=== PATIENT | female | born 1960 | race Caucasian/White ===

== ENCOUNTER 2017-02-05 15:34 | Inpatient (IN) | payer OTHER ==
[~2017-02-05] VITALS: Ht 160 cm; Wt 132.0 kg
[2017-02-05 15:36] VITALS: BP 146/76; PULSE 92; RESP 18; TEMP 98.2; O2SAT 95
[2017-02-05] MEDS ORDERED: SODIUM CHLORIDE 0.9% FLUSH 5 ML FLUSH IVF PRN (16:15)
[2017-02-05 17:02] VITALS: BP 111/67; PULSE 101; RESP 20; TEMP 97.8; O2SAT 96
--- NOTE | 2017-02-05 18:12 | HHI.HP ---
HPI Chief Complaint heavy vaginal bleeding with clots intermittent back pain Date Seen: Feb 05, 2017 Time Seen: 17:56 Travel History International Travel<30 Days: No Contact w/Intl Traveler<30Days: No Known Affected Area: No History of Present Illness HPI 56 yo swf G0 with intact pelvis in menopause since 48 yoa referred to me by her physician sister in [place] and seen briefly in my office today. Stephanie lives in [place] and after absence of bleeding for over four years started bleeding lightly in September, gradually and steadily increasing to heavy with clots. It became particularly heavy and and accompanied by back pain this weekend. This am her back pain was 8/10. She gets diaphoretic and dizzy. 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 She has not seen any physician in decades except for an external reduction of an arm fracture four years ago. She has no history of pap smears or other screening procedures. She is on no medications other than high doses of ibuprofen recently (1200mg today) Her last intercourse was over 10 years ago. She has never been . She does not perceive any abdominal masses, She has no swelling in her extremites. She has not felt weak or faint. In my office a transvaginal ultrasound was attempted and encountered a large amount of clot and tissue in the vault. Transabdominal sonogram showed an irregular mass that is either the uterus or abutting the uterus. Ovaries could not be discerned There was no obvious ascites. Tissue was removed from the vault to be sent to pathology. She feels that she is not voiding adequately--more that she is not making urine as opposed to being in retention or having a slow stream. Dr. Leyda Chandler was called directly and asked to facilitate admission through the ED, during this busy bike week. History Past Medical History Medical History: Denies Significant Hx Obstetric History Obstetric History nulligravid Family History Narrative Family History family history is significant for breast cancer, colon disease and hypertension. Social History Alcohol Use: No Tobacco Use: No Substance Abuse: No Allergies-Medications (Allergen,Severity, Reaction): Coded Allergies: Penicillin (Verified Allergy, Severe, 02/05/17) Review of Systems General / Constitutional: Weight Loss HENT: Headaches, Lightheadedness Cardiovascular: Tachycardia Genitourinary: Decreased Urinary Output, Hesitancy, Pelvic Pain, Menorrhagia, Vaginal Bleeding Physical Exam Vital Signs Date Time Temp Pulse Resp B/P Pulse Ox O2 Delivery O2 Flow Rate FiO2 02/05/17 17:02 97.8 101 20 111/67 96 Room Air 02/05/17 15:36 98.2 92 18 146/76 95 Narrative GENERAL: Well-nourished, well-developed patient. SKIN: Warm and dry. HEAD: Normocephalic and atraumatic. EYES: No scleral icterus. No injection or drainage. ENT: No nasal drainage noted. Mucous membranes pink. Airway patent. NECK: Supple, trachea midline. No JVD. CARDIOVASCULAR: Regular rate and rhythm without murmurs, gallops, or rubs. RESPIRATORY: Breath sounds equal bilaterally. No accessory muscle use. BREASTS: Bilateral exam showed no masses , no retractions, no nipple discharge. ABDOMEN/GI: large pannus perineum normal vault filled with tissue and blood with clot and active bleeding EXTREMITIES: No cyanosis or edema. BACK: Nontender without obvious deformity. No CVA tenderness. NEUROLOGICAL: Awake and alert. Motor and sensory grossly within normal limits. Five out of 5 muscle strength in all muscle groups. Normal speech. Data Data Orders Basic Metabolic Panel (Bmp) (02/05/17 16:01) Complete Blood Count With Diff (02/05/17 16:01) Prothrombin Time / Inr (Pt) (02/05/17 16:01) Act Partial Throm Time (Ptt) (02/05/17 16:01) Type And Screen (02/05/17 16:01) Ecg Monitoring (02/05/17 16:01) Iv Access Insert/Monitor (02/05/17 16:01) Oximetry (02/05/17 16:01) Sodium Chloride 0.9% Flush (Ns Flush) (02/05/17 16:15) Vascular Access Team Consult PRN (02/05/17 17:40) Vascular Poc Ultrasound (02/05/17 ) Admit Order (Ed Use Only) (02/05/17 17:48) Assessment/Plan Assessment and Plan Severe chronic and acute bleeding in obese woman with no medical care for many years. Recent onset of back pain. My greatest concern is for an advanced endometrial neoplasm, although the primary could be cervical. Needs hydration and labs to assess chronic and acute blood loss Need to get CT scan to look for primary organ and metastatic disease Need to identify any comorbidities other than increase BMI Nona Guerrier MD Feb 05, 2017 18:12
[2017-02-05 18:35] LABS: AUTOMATED NEUTROPHIL # 10.2 TH/MM3 (1.8-7.7); BASOPHIL # 0.1 TH/MM3 (0-0.2); BASOPHIL % 0.7 % (0.0-2.0); EOSINOPHIL % 0.3 % (0.0-4.0); HEMO FLAGS DIFF FINAL; LYMPH % 16.6 % (9.0-44.0); LYMPHOCYTE # 2.2 TH/MM3 (1.0-4.8); MEAN CORPUSCULAR HEMOGLOBIN 29.3 PG (27.0-34.0); MEAN CORPUSCULAR HGB CONC 33.3 % (32.0-36.0); MONO % 5.3 % (0.0-8.0); NEUT % 77.1 % (16.0-70.0); PLATELET COUNT 258 TH/MM3 (150-450); RED BLOOD COUNT 3.97 MIL/MM3 (4.00-5.30); RED CELL DISTRIBUTION WIDTH 13.9 % (11.6-17.2); WHITE BLOOD COUNT 13.2 TH/MM3 (4.0-11.0)
--- NOTE | 2017-02-05 19:22 | PD ---
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 Patient has not seen a doctor in 30-40 years. She is postmenopausal times approximate 2-3 years and began to have vaginal bleeding in October. Over the course the last 2-3 months this has increased and she is now having heavy bleeding and clot. She was seen in clinic by Dr. Guerrier who noted patient to be bleeding quite heavily and tachycardic in the 130s. Patient having some low abdominal pain and had a pelvic ultrasound showing uterus essentially taken over by endometrium with tumor falling out of her vaginal vault. Biopsy was taken. Patient transferred here for further management and resuscitation with blood products if needed. She feels okay now and believes she was just nervous which is what caused her to be tachycardic. PFSH Past Medical History Medical History: Denies Significant Hx Diabetes: No (fam hx) Tetanus Vaccination: > 5 Years Influenza Vaccination: No ?: Not Family History Family Breast Cancer: Yes (mother,cousin) Family Hypercholesterolemia: Yes (fam hx htn) Social History Alcohol Use: No Tobacco Use: No Substance Use: No Allergies-Medications (Allergen,Severity, Reaction): Coded Allergies: Penicillin (Verified Allergy, Severe, 02/05/17) Reported Meds & Prescriptions Reported Meds & Active Scripts Active No Active Prescriptions or Reported Medications Review of Systems Except as stated in HPI: all other systems reviewed are Neg Physical Exam Narrative GENERAL: Well-appearing female in no acute distress SKIN: Warm and dry. HEAD: Normocephalic. EYES: No scleral icterus. No injection or drainage. ENT: Mucous membranes pink and moist. NECK: Supple CARDIOVASCULAR: Regular rate and rhythm. No murmur appreciated. RESPIRATORY: No accessory muscle use. Clear to auscultation. Breath sounds equal bilaterally. GASTROINTESTINAL: Abdomen soft, non-tender, nondistended. Obese MUSCULOSKELETAL: Normal gait NEUROLOGICAL: Awake and alert.Normal speech. PSYCHIATRIC: Appropriate mood and affect; insight and judgment normal. Data Data Last Documented VS Vital Signs Date Time Temp Pulse Resp B/P Pulse Ox O2 Delivery O2 Flow Rate FiO2 02/05/17 17:02 97.8 101 20 111/67 96 Room Air Orders Complete Blood Count With Diff (02/05/17 16:01) Prothrombin Time / Inr (Pt) (02/05/17 16:01) Act Partial Throm Time (Ptt) (02/05/17 16:01) Type And Screen (02/05/17 16:01) Ecg Monitoring (02/05/17 16:01) Iv Access Insert/Monitor (02/05/17 16:01) Oximetry (02/05/17 16:01) Sodium Chloride 0.9% Flush (Ns Flush) (02/05/17 16:15) Vascular Access Team Consult PRN (02/05/17 17:40) Vascular Poc Ultrasound (02/05/17 ) Admit Order (Ed Use Only) (02/05/17 17:48) MDM Medical Decision Making Medical Screen Exam Complete: Yes Emergency Medical Condition: Yes Medical Record Reviewed: Yes Differential Diagnosis 56-year-old female here with postmenopausal vaginal bleeding. Differential includes uterine cancer, cervical cancer, other PHOTOGRAPHER'S ASSISTANT cancer, hemorrhage, symptomatic anemia. Narrative Course Patient placed on monitor, IV established and blood obtained. CBC, BMP, coags, type and screen were obtained and notable for hemoglobin of 11.7. Heart rate remained stable throughout ED stay. Dr. Guerrier consulted and will admit patient for further management and PHOTOGRAPHER'S ASSISTANT oncology workup. CT chest abdomen and pelvis were ordered for metastatic workup. Diagnosis Primary Impression: Post-menopausal bleeding Additional Impression: Vaginal bleeding Admitting Information Admitting Physician Requests: Admit Scripts No Active Prescriptions or Reported Meds eLyda Chandler MD Feb 05, 2017 19:21
[2017-02-05 19:34] LABS: ANION GAP 9 MEQ/L (5-15); AST (GOT) 10 U/L (15-37); BICARBONATE 25.8 MEQ/L (21.0-32.0); BLOOD UREA NITROGEN 12 MG/DL (7-18); CHLORIDE 101 MEQ/L (98-107); GLOMERULAR FILTRATION RATE 61 ML/MIN (>89); POTASSIUM 3.7 MEQ/L (3.5-5.1); SODIUM (NA) 136 MEQ/L (136-145)
[2017-02-05 19:38] LABS: ALKALINE PHOSPHATASE 94 U/L (45-117); ALT (GPT) 16 U/L (10-53); FERRITIN 33 NG/ML (8-252); TOTAL BILIRUBIN ADULT 0.4 MG/DL (0.2-1.0)
[2017-02-05 19:45] LABS: PROTHROMBIN TIME - PATIENT 10.8 SEC (9.8-11.6)
[2017-02-05 19:48] LABS: APTT (PATIENT) 19.4 SEC (24.3-30.1)
[2017-02-05 19:59] LABS: RETIC % 2.8 % (0.4-3.0); REVIEW FLAG FINAL
[2017-02-05] MEDS ORDERED: IOHEXOL 350 MG/ML 10 ML VIAL (for RAD DIAG) IV ONE (20:05)
--- NOTE | 2017-02-05 20:27 | RADRPT ---
EXAM DATE/TIME: 02/05/2017 19:51 [facility] COMPARISON: No previous studies available for comparison. INDICATIONS : Possible metastatic disease to lungs. IV CONTRAST: 100 cc Omnipaque 350 (iohexol) IV ; Cumulative dose for multiple exams. RADIATION DOSE: 14.24 CTDIvol (mGy) ; Combined studies - Thorax/Abdomen/Pelvis MEDICAL HISTORY : Diabetes mellitus type 2. SURGICAL HISTORY : None. ENCOUNTER: Initial ACUITY: 1 day PAIN SCALE: 0/10 LOCATION: cranial TECHNIQUE: Volumetric scanning of the chest was performed. Using automated exposure control and adjustment of t he mA and/or kV according to patient size, radiation dose was kept as low as reasonably achievable to obtain optimal diagnostic quality images. FINDINGS: LUNGS: There is no consolidation or pneumothorax. No concerning pulmonary nodule is visualized. PLEURA: There is no pleural thickening or pleural effusion. MEDIASTINUM: The heart and great vessels demonstrate no acute abnormality. There is no mediastinal or hilar lymph adenopathy. AXILLAE: Within normal limits. No lymphadenopathy. SKELETAL: Within normal limits for patient age. MISCELLANEOUS: The visualized upper abdominal organs demonstrate no acute abnormality. CONCLUSION: 1. No acute intrathoracic disease. 2. No evidence of metastatic disease. Jc Vega MD on February 05, 2017 at 20:23 Board Certified Radiologist. This report was verified electronically.
--- NOTE | 2017-02-05 20:29 | RADRPT ---
EXAM DATE/TIME: 02/05/2017 19:51 [facility] COMPARISON: No previous studies available for comparison. INDICATIONS : Abnormal vaginal bleeding and pelvic pain. IV CONTRAST: 100 cc Omnipaque 350 (iohexol) IV ; Cumulative dose for multiple exams. ORAL CONTRAST: Prescribed oral contrast ingested. RADIATION DOSE: 14.49 CTDIvol (mGy) ; Combined studies - Thorax/Abdomen/Pelvis MEDICAL HISTORY : Diabetes mellitus type 2. SURGICAL HISTORY : None. ENCOUNTER: Initial ACUITY: 1 day PAIN SCALE: 5/10 LOCATION: Bilateral lower quadrant TECHNIQUE: Volumetric scanning of the abdomen and pelvis was performed. Using automated exposure control and ad justment of the mA and/or kV according to patient size, radiation dose was kept as low as reasonably achievable to obtain optimal diagnostic quality images. FINDINGS: LOWER LUNGS: The visualized lower lungs are clear. LIVER: Homogeneous density without lesion. There is no dilation of the biliary tree. No calcified gallston es. SPLEEN: Normal size without lesion. PANCREAS: Within normal limits. KIDNEYS: Normal in size and shape. There is no mass, stone or hydronephrosis. ADRENAL GLANDS: Within normal limits. VASCULAR: There is no aortic aneurysm. BOWEL/MESENTERY: The stomach, small bowel, and colon demonstrate no acute abnormality. There is no free intraperitone al air or fluid. A few scattered diverticula of the colon. No inflammatory changes. ABDOMINAL WALL: Within normal limits. RETROPERITONEUM: There is no lymphadenopathy. BLADDER: No wall thickening or mass. REPRODUCTIVE: Uterus appears to be diffusely enlarged measuring 8.2 x 5.5 cm. No free fluid in the pelvis. INGUINAL: There is no lymphadenopathy or hernia. MUSCULOSKELETAL: Within normal limits for patient age. CONCLUSION: 1. Diffusely enlarged uterus 2. Scattered diverticulosis without inflammatory changes Jc Vega MD on February 05, 2017 at 20:25 Board Certified Radiologist. This report was verified electronically.
[2017-02-05 20:58] VITALS: BP 103/68; PULSE 104; RESP 14; O2SAT 96
[2017-02-05 22:18] VITALS: BP 132/77; PULSE 120; RESP 16; TEMP 98.1; O2SAT 96
[2017-02-05] MEDS ORDERED: DEXTROSE 50% IN WATER 50 ML VIAL(D50) IV PUSH PRN (22:30)
[2017-02-05] MEDS ORDERED: GLUCAGON 1 MG/ML VIAL OTHER PRN (22:30)
[2017-02-05] MEDS: LOW DOSE INSULIN NOVOLOG SUPPLEMENTAL SCALE SQ SCH (22:41)
[2017-02-05 22:44] LABS: HEMOGLOBIN A1a 1.7 %; HEMOGLOBIN Ao 74.1 %; HEMOGLOBIN F 1.9 %; HEMOGLOBIN LA1C 3.6 %; HEMOGLOBIN P3 5.3 %
[2017-02-06 02:35] LABS: BLOOD, URINE LARGE (NEG); COMMENT (UR) CULTURE INDICATED; CULTURE IF INDICATED CULTURE INDICATED; GLUCOSE,URINE TRACE mg/dL (NEG); KETONE, URINE TRACE mg/dL (NEG); MUCUS URINE FEW /lpf (OCC); NITRITE,URINE NEG (NEG); PH, URINE 5.5 (5.0-8.5); URINE COLOR YELLOW (YELLW/STRAW)
[2017-02-06 04:08] VITALS: BP 93/50; PULSE 92; RESP 16; TEMP 98.5; O2SAT 97
[2017-02-06] MEDS: LOW DOSE INSULIN NOVOLOG SUPPLEMENTAL SCALE SQ SCH ×4 (05:40→22:05)
[2017-02-06 07:50] VITALS: BP 100/63; PULSE 85; RESP 20; TEMP 98.7; O2SAT 98
--- NOTE | 2017-02-06 07:52 | MB ---
cc: DAVID LONG KELLY L. MD DATE OF CONSULTATION 02/06/2017 PHYSICIAN REQUESTING CONSULT Tresa Long MD REASON FOR CONSULTATION Uterine and cervical mass postmenopausal bleeding. HISTORY This a 56-year-old female who by her own admission has been decades since she has last seen a physician. She has never been in the hospital. She has not had any prior surgery. She reports bleeding starting as spotting in September of last year intermittently until recently where it worsened. This was also associated with lower back pain and it was actually back pain where she was sent to the emergency room for further evaluated after she was seen and evaluated in the office of Dr. Tresa Long. Dr. Long describes seeing polypoid tissue that appears to be a probable tumor either extending through the cervix or possibly replacing the cervix upper vagina. Biopsy was obtained. Pathology results are pending. She was admitted to the hospital. CT scan imaging of the chest, abdomen and pelvis shows the chest to be clear. The uterus is quite prominent with a width of 10 cm and this width continues all the way down to the lower uterine segment and cervix to some extent and the uterus extends to within a few centimeters of the umbilicus. There is no overt adenopathy, ascites, intraperitoneal or retroperitoneal nodularity. She is seen now in consultation for further evaluation and recommendations regarding these findings. PAST MEDICAL HISTORY Her past medical history is not well known. As stated above, she has a sedentary lifestyle and is above her ideal body weight and it has become clear since admission that she has poorly controlled diabetes with a hemoglobin A1c of greater than 12 and a blood glucose on admission greater than 300. PAST SURGICAL HISTORY Unremarkable SOCIAL HISTORY She denies any tobacco or alcohol use. FAMILY HISTORY Known for breast cancer, elevated cholesterol. No other information provided. MEDICATIONS She takes no prescription medications. ALLERGIES She reports to [facility]. OBJECTIVE DATA Labs on admission H&H 11.7 and 35, white count 13.2, platelet count 258. Electrolytes essentially normal with preserved renal function, BUN and creatinine 12 and 0.94, glucose elevated 326. Hemoglobin A1c 12.3, protein uncorrected calcium slightly low at 8.4. No elevated liver function tests, CA-125 is normal at 21.9. PHYSICAL EXAMINATION Afebrile, temp 98.5, pulse 92-120, respirations 14-20, blood pressure 93-146/50 to 77, O2 saturations greater than or equal to 96% while awake. GENERAL: She is alert, oriented x3 in no acute distress, pleasant and now comfortable, states that her back pain currently has subsided. NECK: No overt adenopathy. No overt carotid bruits. LUNGS: Clear to auscultation. CARDIOVASCULAR: Distant heart sounds regular rate and rhythm. BACK: Without CVA tenderness or focal spinal point tenderness. ABDOMEN: Protuberant and nontender. There is no overt hernia. No palpable mass or visible surgical scars. COLLISION CENTER MANAGER: Exam is deferred until a more optimal setting for exam. EXTREMITIES: Nontender. No palpable cords. NEUROVASCULAR: Intact. DISCUSSION Time is spent in discussion with her reviewing the findings in her case to date, explaining the reason for COLLISION CENTER MANAGER oncology consultation. I explained that there are benign things that can occur and cause the uterus and cervix to appear abnormal and result in bleeding, pain and other symptoms and there are certainly malignancies that can present with these findings. She understands that a biopsy has been obtained, the results are pending and I have reviewed the CT scan results again with her as well. I shared are reasonably high concern for probable malignancy given the constellation of findings and how it is approached depends on the biopsy results and the extent of disease in the pelvis. CT scan imaging certainly shows a markedly distended lower uterine segment and cervix and it needs to be further clarified whether or not there is infiltration of tumor beyond the cervix into the parametria and whether this tumor is arising from the cervix or the uterus and certainly in our consideration is endometrial cancer with presentation suggestive of a carcinosarcoma or other sarcoma variant, but primary tumor in the cervix or otherwise must all be considered. Nevertheless, additional information is needed. She is aware of her poorly controlled glucose and it would be helpful to have that addressed by the Medicine Service not only while in the hospital, but to have outpatient regular ongoing followup. With respect to treatment, the range can be from efforts to control bleeding such as selective artery embolization. At times, surgery is thought to be the best way to approach a problem like this with hysterectomy and at times depending on the pathology and extent of disease, that radiation and possibly chemotherapy may be considered. As explained, certainly this is a wide spectrum of potential treatment approaches and additional information is needed prior to making definitive recommendations. We will follow along in her care. Discussion ensued, questions were answered. She was grateful for the time spent and seems to understand the pertinent aspects of our discussion. ASSESSMENT 1. Enlarged uterus, lower uterine segment and cervix, postmenopausal bleeding and back pain. 2. Biopsy obtained, results pending. 3. Extensive discussion. PLAN In our discussion, she is in agreement. If possible, we may do a more optimal setting for pelvic exam and this combined with biopsy results may help guide our treatment recommendations. We will follow along with Dr. Long and work in conjunction with her. Thank you for the consultation. MD BOUBACAR Vences/OUMAR /7:03 AM /7:19 AM
[2017-02-06 09:44] LABS: AUTOMATED NEUTROPHIL # 7.5 TH/MM3 (1.8-7.7); BASOPHIL # 0.1 TH/MM3 (0-0.2); BASOPHIL % 0.6 % (0.0-2.0); EOSINOPHIL # 0.2 TH/MM3 (0-0.4); EOSINOPHIL % 2.2 % (0.0-4.0); HEMATOCRIT 34.9 % (35.0-46.0); HEMO FLAGS DIFF FINAL; LYMPH % 23.5 % (9.0-44.0); LYMPHOCYTE # 2.6 TH/MM3 (1.0-4.8); MEAN CELL VOLUME 85.1 FL (80.0-100.0); MEAN CORPUSCULAR HEMOGLOBIN 29.1 PG (27.0-34.0); MEAN CORPUSCULAR HGB CONC 34.2 % (32.0-36.0); MONO % 6.5 % (0.0-8.0); NEUT % 67.2 % (16.0-70.0); PLATELET COUNT 284 TH/MM3 (150-450); RED CELL DISTRIBUTION WIDTH 13.5 % (11.6-17.2); WHITE BLOOD COUNT 11.1 TH/MM3 (4.0-11.0)
[2017-02-06 11:50] VITALS: BP 98/51; PULSE 84; RESP 20; TEMP 98; O2SAT 96
--- NOTE | 2017-02-06 12:59 | PD.CONS ---
HPI Chief Complaint post menopausal bleeding enlarged uterus with tissue extruding from/replacing cervix Date Seen: Feb 06, 2017 Time Seen: 08:00 Travel History International Travel<30 Days: No Contact w/Intl Traveler<30Days: No Known Affected Area: No History of Present Illness HPI 56 yo swf G0 with intact pelvis and increasing bleeding over 3 months. Fleshy mass of tissue in vault either extruding from or replacing cervix. Sonogram in my office not helpful. CT done yesterday suggests absence of metastatic disease but uterus enlarged. Bleeding has diminished but still has occasional clots and tissue this am. She is aware that her glucose was over 350 and that she needs a work up for diabetes. She has no more back pain and wonders if the sudden expulsion of tissue and clots yesterday ("like my uterus blew out") relieved her back pain--that sent her to my office in the first place. Ca [address] Vaughn has already seen Stephanie this am. Waiting for hospitalist consultation. Allergies-Medications (Allergen,Severity, Reaction): Coded Allergies: Penicillin (Verified Allergy, Severe, 02/05/17) Home Meds No Active Prescriptions or Reported Meds Physical Exam Vital Signs Date Time Temp Pulse Resp B/P Pulse Ox O2 Delivery O2 Flow Rate FiO2 02/06/17 04:08 98.5 92 16 93/50 97 02/05/17 22:18 98.1 120 16 132/77 96 02/05/17 20:58 104 14 103/68 96 Room Air 02/05/17 17:02 97.8 101 20 111/67 96 Room Air 02/05/17 15:36 98.2 92 18 146/76 95 Narrative GENERAL: Well-nourished overweight well-developed patient. SKIN: Warm and dry. HEAD: Normocephalic and atraumatic. EYES: No scleral icterus. No injection or drainage. ENT: No nasal drainage noted. Mucous membranes pink. Airway patent. NECK: Supple, trachea midline. No JVD. CARDIOVASCULAR: Regular rate and rhythm without murmurs, gallops, or rubs. RESPIRATORY: Breath sounds equal bilaterally. No accessory muscle use. BREASTS: Bilateral exam showed no masses , no retractions, no nipple discharge. ABDOMEN/GI: Abdomen soft, non-tender, bowel sounds present, no rebound, no guarding Gravid to [-] weeks size Fundal Height: [-] GENITOURINARY: pads show moderate blood and serous fluid. no pelvic exam performed in the room. EXTREMITIES: No cyanosis or edema. BACK: Nontender without obvious deformity. No CVA tenderness. NEUROLOGICAL: Awake and alert. Motor and sensory grossly within normal limits. Five out of 5 muscle strength in all muscle groups. Normal speech. Data Data Orders Complete Blood Count With Diff (02/05/17 16:01) Prothrombin Time / Inr (Pt) (02/05/17 16:01) Act Partial Throm Time (Ptt) (02/05/17 16:01) Type And Screen (02/05/17 16:) Ecg Monitoring (02/05/17 16:01) Iv Access Insert/Monitor (02/05/17 16:) Oximetry (02/05/17 16:01) Sodium Chloride 0.9% Flush (Ns Flush) (02/05/17 16:15) Vascular Access Team Consult PRN (02/05/17 17:40) Vascular Poc Ultrasound (02/05/17 ) Admit Order (Ed Use Only) (02/05/17 17:48) Consult Process Designer Oncology (02/05/17 ) Cancer Antigen 125 (02/05/17 18:12) Hemoglobin (Hgb) A1c (02/05/17 18:12) Ferritin (02/05/17 18:12) Retic Count (02/05/17 18:12) Comprehensive Metabolic Panel (02/05/17 18:12) Cath For Specimen (02/05/17 18:12) ^ Other Nursing Orders (02/05/17 18:12) Ct Abd/Pel W Iv Contrast(Rout) (02/05/17 18:21) Ct Thorax/ Chest W Iv Contrast (02/05/17 ) (Hub Use Only)Inp Phy Cons/Ref (02/05/17 ) Iohexol 350 Inj (Omnipaque 350 Inj) (02/05/17 20:05) Oxycodone-Acetamin 5-325 Mg (Percocet (02/05/17 22:30) Oxycodone-Acetamin 5-325 Mg (Percocet (02/05/17 22:30) Dextrose 50% In [place] (Vial) Inj (D50w (Vi (02/05/17 22:30) Glucagon Inj (Glucagon Inj) (02/05/17 22:30) Insulin Aspart Supplemtl Scale (Novolog (02/05/17 22:22) Complete Blood Count With Diff (02/06/17 06:00) Diet 1999 Ada Cons Carb (02/05/17 Dinner) Specimen To Be Collected PRN (02/05/17 22:26) Urinalysis - C+S If Indicated (02/05/17 22:26) Bedside Glucose KADE.AC&HS (02/05/17 22:37) ^ Blood Glucose Goal (Criteria (02/05/17 22:37) ^ Hypoglycemia 51 - 69 Mg/Dl (02/05/17 22:37) ^ Hypoglycemia 50 Mg/Dl Or < (02/05/17 22:37) ^ Notify Dr: Other (02/05/17 22:37) Urine Culture (02/06/17 02:00) Labs Laboratory Tests Test 02/05/17 02/05/17 02/05/17 02/06/17 18:10 19:15 19:40 02:00 White Blood Count 13.2 Red Blood Count 3.97 Hemoglobin 11.7 Hematocrit 35.0 Mean Corpuscular Volume 88.0 Mean Corpuscular Hemoglobin 29.3 Mean Corpuscular Hemoglobin 33.3 Concent Red Cell Distribution Width 13.9 Platelet Count 258 Mean Platelet Volume 9.5 Neutrophils (%) (Auto) 77.1 Lymphocytes (%) (Auto) 16.6 Monocytes (%) (Auto) 5.3 Eosinophils (%) (Auto) 0.3 Basophils (%) (Auto) 0.7 Neutrophils # (Auto) 10.2 Lymphocytes # (Auto) 2.2 Monocytes # (Auto) 0.7 Eosinophils # (Auto) 0.0 Basophils # (Auto) 0.1 CBC Comment DIFF FINAL Differential Comment Reticulocyte Count 2.8 Absolute Reticulocyte Count 117.2 Sodium Level 136 Potassium Level 3.7 Chloride Level 101 Carbon Dioxide Level 25.8 Anion Gap 9 Blood Urea Nitrogen 12 Creatinine 0.94 Estimat Glomerular Filtration 61 Rate Random Glucose 326 Hemoglobin A1c 12.3 Calcium Level 8.4 Ferritin 33 Total Bilirubin 0.4 Aspartate Amino Transf 10 (AST/SGOT) Alanine Aminotransferase 16 (ALT/SGPT) Alkaline Phosphatase 94 Total Protein 6.9 Albumin 3.3 Prothrombin Time 10.8 Prothromb Time International 1.0 Ratio Activated Partial 19.4 Thromboplast Time CA 125 Antigen 21.9 Blood Type O POSITIVE Antibody Screen NEGATIVE Blood Bank Comment Urine Color YELLOW Urine Turbidity HAZY Urine pH 5.5 Urine Specific [place] 1.037 Urine Protein TRACE Urine Glucose (UA) TRACE Urine Ketones TRACE Urine Occult Blood LARGE Urine Nitrite NEG Urine Bilirubin NEG Urine Urobilinogen LESS THAN 2.0 Urine Leukocyte Esterase MOD Urine RBC 145 Urine WBC 67 Urine Mucus FEW Microscopic Urinalysis Comment CULTURE INDICATED Test 02/06/17 08:55 White Blood Count 11.1 Red Blood Count 4.10 Hemoglobin 11.9 Hematocrit 34.9 Mean Corpuscular Volume 85.1 Mean Corpuscular Hemoglobin 29.1 Mean Corpuscular Hemoglobin 34.2 Concent Red Cell Distribution Width 13.5 Platelet Count 284 Mean Platelet Volume 9.4 Neutrophils (%) (Auto) 67.2 Lymphocytes (%) (Auto) 23.5 Monocytes (%) (Auto) 6.5 Eosinophils (%) (Auto) 2.2 Basophils (%) (Auto) 0.6 Neutrophils # (Auto) 7.5 Lymphocytes # (Auto) 2.6 Monocytes # (Auto) 0.7 Eosinophils # (Auto) 0.2 Basophils # (Auto) 0.1 CBC Comment DIFF FINAL Differential Comment Date/Time Procedure Status Source Growth 02/06/17 02:00 Urine Culture Received Urine Clean Catch Pending [facility] Interpretation(s) Stephanie has been evaluated by Dr. Vaughn this am and he feels the differential included a sarcoma. We are awaiting the path from the tissue sent from the ED yesterday. Ca 125 normal We have decided to consult interventional radiology to embolize this uterus and allow time for better glucose control Mela will then do a surgical evaluation Saturday if path suggests this the best option (as opposed to radiation). Admitting diagnosis: vag bleeding, tumor. Scripts No Active Prescriptions or Reported Meds Nona Guerrier MD Feb 06, 2017 12:59
[2017-02-06] MEDS: oxyCODONE/ACETAMINOPHEN 5 MG/325 MG TAB PO PRN (14:03)
--- NOTE | 2017-02-06 15:23 | MB ---
cc: DAVID LONG,ILAN Salomon MD DATE OF CONSULTATION: 02/06/2017 REASON FOR CONSULTATION: ADDENDUM: Active bleeding prior to start of exam with necrotic malodorous changes. Speculum exam, tumor visualized in the central pelvis either extending through a dilated cervix or replacing the cervix, a rim of what seems to be palpable normal cervix can be appreciated along the anatomical right side. A distinct border between the tumor and normal cervix is difficult to identify on exam. There is visible necrotic tumor, hemorrhagic that is biopsied, multiple pieces are obtained. Monsel's solution followed by Surgicel pack were placed across the cervix and upper vagina for hemostasis. She was left in supine position and re-evaluated. There was no active bleeding at the completion of the procedure. She tolerated it well although with some anxiety and discomfort. The specimen was sent to Dr. Landers in pathology who graciously performed frozen section analysis, however, the tumor was largely necrotic, full of bacteria, blood and there were some identifiable markedly abnormal cells that were malignant but could not be otherwise specified. I had the opportunity to then give follow up discussion with Dr. Tresa Long as well as with Dr. Miguel Angel Landers in interventional radiology and taking things into consideration, we agreed on interventional radiology. Will do selective arterial embolization Saturday morning, most likely of the uterine arteries in an effort to diminish risk of hemorrhage and to also decrease risk of hemorrhage during surgery, as she is tentatively scheduled for exploratory laparotomy, hysterectomy, bilateral salpingo-oophorectomy, possible staging biopsies on this forthcoming Saturday, (February 11, 2017). She is aware of the anticipated procedure with interventional radiology. Furthermore, she is made aware that at the start of the scheduled hysterectomy, we will do a careful examination under anesthesia. It is hoped that biopsy obtained by Dr. Long yesterday will be available and may give a tissue diagnosis. The combination will help us decide if in fact hysterectomy is the best way to approach this abnormality or if in fact it is infiltrated and needs to be treated with regional and/or systemic therapy such as radiation and/or chemotherapy. Discussion ensued, questions were answered. She expressed good understanding and was grateful for efforts being made to try to help her. MD BOUBACAR Vences/MONA /2:30 PM /3:04 PM
[2017-02-06 15:50] VITALS: BP 137/74; PULSE 78; RESP 20; TEMP 98.5; O2SAT 96
--- NOTE | 2017-02-06 17:50 | PD.CONS ---
HPI Travel History International Travel<30 Days: No Contact w/Intl Traveler<30Days: No Known Affected Area: No History of Present Illness HPI Stephanie resting quietly with friend in room bleeding minimal despite exam with Dr. Vaughn today at his office my tissue and his additional tissue was too necrotic to determine primary Situation reviewed among physicians and later to Stephanie: Will tune up diabetes (need hospitalist today) Will get uterine artery embolization pre op on Saturday (or anytime before if a bleeding diathesis occurs) Will discuss with Stephanie's sister who is an obgyn and coming tomorrow. Allergies-Medications (Allergen,Severity, Reaction): Coded Allergies: Penicillin (Verified Allergy, Severe, 02/05/17) Home Meds No Active Prescriptions or Reported Meds Physical Exam Vital Signs Date Time Temp Pulse Resp B/P Pulse Ox O2 Delivery O2 Flow Rate FiO2 02/06/17 11:50 98.0 84 20 98/51 96 02/06/17 07:50 98.7 85 20 100/63 98 02/06/17 04:08 98.5 92 16 93/50 97 02/05/17 22:18 98.1 120 16 132/77 96 02/05/17 20:58 104 14 103/68 96 Room Air Narrative GENERAL: Well-nourished, well-developed patient. SKIN: Warm and dry. HEAD: Normocephalic and atraumatic. EYES: No scleral icterus. No injection or drainage. ENT: No nasal drainage noted. Mucous membranes pink. Airway patent. NECK: Supple, trachea midline. No JVD. CARDIOVASCULAR: Regular rate and rhythm without murmurs, gallops, or rubs. RESPIRATORY: Breath sounds equal bilaterally. No accessory muscle use. BREASTS: Bilateral exam showed no masses , no retractions, no nipple discharge. ABDOMEN/GI: Abdomen soft, non-tender, bowel sounds present, no rebound, no guarding Gravid to [-] weeks size Fundal Height: [-] GENITOURINARY: External Genitalia: intact and normal in appearance BUS glands: [-] Cervix: [-] Dilatation: [-] Effacement: [-] Station: [-] Presentation: [-] Membranes: [intact or ruptured] Uterine Contractions: [-] FHT's: Category: [-] Baseline: [-] Reactive: [-] Variability: [-] Decels: [-] EXTREMITIES: No cyanosis or edema. BACK: Nontender without obvious deformity. No CVA tenderness. NEUROLOGICAL: Awake and alert. Motor and sensory grossly within normal limits. Five out of 5 muscle strength in all muscle groups. Normal speech. Data Data Orders Admit Order (Ed Use Only) (02/05/17 17:48) Consult Superintendent Distribution Oncology (02/05/17 ) Cancer Antigen 125 (02/05/17 18:12) Hemoglobin (Hgb) A1c (02/05/17 18:12) Ferritin (02/05/17 18:12) Retic Count (02/05/17 18:12) Comprehensive Metabolic Panel (02/05/17 18:12) Cath For Specimen (02/05/17 18:12) ^ Other Nursing Orders (02/05/17 18:12) Ct Abd/Pel W Iv Contrast(Rout) (02/05/17 18:21) Ct Thorax/ Chest W Iv Contrast (02/05/17 ) (Hub Use Only)Inp Phy Cons/Ref (02/05/17 ) Iohexol 350 Inj (Omnipaque 350 Inj) (02/05/17 20:05) Oxycodone-Acetamin 5-325 Mg (Percocet (02/05/17 22:30) Oxycodone-Acetamin 5-325 Mg (Percocet (02/05/17 22:30) Dextrose 50% In [place] (Vial) Inj (D50w (Vi (02/05/17 22:30) Glucagon Inj (Glucagon Inj) (02/05/17 22:30) Insulin Aspart Supplemtl Scale (Novolog (02/05/17 22:22) Complete Blood Count With Diff (02/06/17 06:00) Diet 2000 Ada Cons Carb (02/05/17 Dinner) Specimen To Be Collected PRN (02/05/17 22:26) Urinalysis - C+S If Indicated (02/05/17 22:26) Bedside Glucose KADE.AC&HS (02/05/17 22:37) ^ Blood Glucose Goal (Criteria (02/05/17 22:37) ^ Hypoglycemia 51 - 69 Mg/Dl (02/05/17 22:37) ^ Hypoglycemia 50 Mg/Dl Or < (02/05/17 22:37) ^ Notify Dr: Other (02/05/17 22:37) Urine Culture (02/06/17 02:00) Invasive Rad Dept Consult (02/06/17 ) Npo After Midnight W/ Po Meds (02/10/17 Dinner) Electrocardiogram (02/06/17 ) Labs Laboratory Tests Test 02/05/17 02/05/17 02/05/17 02/06/17 18:10 19:15 19:40 02:00 White Blood Count 13.2 Red Blood Count 3.97 Hemoglobin 11.7 Hematocrit 35.0 Mean Corpuscular Volume 88.0 Mean Corpuscular Hemoglobin 29.3 Mean Corpuscular Hemoglobin 33.3 Concent Red Cell Distribution Width 13.9 Platelet Count 258 Mean Platelet Volume 9.5 Neutrophils (%) (Auto) 77.1 Lymphocytes (%) (Auto) 16.6 Monocytes (%) (Auto) 5.3 Eosinophils (%) (Auto) 0.3 Basophils (%) (Auto) 0.7 Neutrophils # (Auto) 10.2 Lymphocytes # (Auto) 2.2 Monocytes # (Auto) 0.7 Eosinophils # (Auto) 0.0 Basophils # (Auto) 0.1 CBC Comment DIFF FINAL Differential Comment Reticulocyte Count 2.8 Absolute Reticulocyte Count 117.2 Sodium Level 136 Potassium Level 3.7 Chloride Level 101 Carbon Dioxide Level 25.8 Anion Gap 9 Blood Urea Nitrogen 12 Creatinine 0.94 Estimat Glomerular Filtration 61 Rate Random Glucose 326 Hemoglobin A1c 12.3 Calcium Level 8.4 Ferritin 33 Total Bilirubin 0.4 Aspartate Amino Transf 10 (AST/SGOT) Alanine Aminotransferase 16 (ALT/SGPT) Alkaline Phosphatase 94 Total Protein 6.9 Albumin 3.3 Prothrombin Time 10.8 Prothromb Time International 1.0 Ratio Activated Partial 19.4 Thromboplast Time [place] 125 Antigen 21.9 Blood Type O POSITIVE Antibody Screen NEGATIVE Blood Bank Comment Urine Color YELLOW Urine Turbidity HAZY Urine pH 5.5 Urine Specific [place] 1.037 Urine Protein TRACE Urine Glucose (UA) TRACE Urine Ketones TRACE Urine Occult Blood LARGE Urine Nitrite NEG Urine Bilirubin NEG Urine Urobilinogen LESS THAN 2.0 Urine Leukocyte Esterase MOD Urine RBC 145 Urine WBC 67 Urine Mucus FEW Microscopic Urinalysis Comment CULTURE INDICATED Test 02/06/17 08:55 White Blood Count 11.1 Red Blood Count 4.10 Hemoglobin 11.9 Hematocrit 34.9 Mean Corpuscular Volume 85.1 Mean Corpuscular Hemoglobin 29.1 Mean Corpuscular Hemoglobin 34.2 Concent Red Cell Distribution Width 13.5 Platelet Count 284 Mean Platelet Volume 9.4 Neutrophils (%) (Auto) 67.2 Lymphocytes (%) (Auto) 23.5 Monocytes (%) (Auto) 6.5 Eosinophils (%) (Auto) 2.2 Basophils (%) (Auto) 0.6 Neutrophils # (Auto) 7.5 Lymphocytes # (Auto) 2.6 Monocytes # (Auto) 0.7 Eosinophils # (Auto) 0.2 Basophils # (Auto) 0.1 CBC Comment DIFF FINAL Differential Comment Date/Time Procedure Status Source Growth 02/06/17 02:00 Urine Culture Received Urine Clean Catch Pending MDM Admitting diagnosis: vag bleeding, tumor. Scripts No Active Prescriptions or Reported Meds Nona Guerrier MD Feb 06, 2017 17:50
--- NOTE | 2017-02-06 19:21 | PD.CONS ---
HPI Service [facility] Hospitalists Consult Requested By Dr. Guerrier Reason for Consult Diabetes, medical management Primary Care Physician No Primary Care Physician Diagnoses: (1) Uterine mass (2) Vaginal bleeding (3) Obesity (4) Newly diagnosed diabetes (5) Back pain History of Present Illness 56-year-old michaela female admitted to the hospital for postmenopausal vaginal bleeding with concern for uterine and or cervical malignancy. The patient reports a history of vaginal bleeding that has been ongoing for the past 4 months. This has been getting worse with associated back pain. Dr. Guerrier and [employer] oncologist Dr. Vaughn following. There is plan for uterine artery embolization and exploratory laparotomy with possible hysterectomy or other procedures based on pathology on Saturday. The patient's blood glucose was found to be markedly elevated. Her hemoglobin A1c is 12.3. Hospitalist service consulted for medical management. Unfortunately this michaela woman has not seen any healthcare providers for the past decades. She is unaware of any medical problems. She endorsed polyuria and polydipsia but could not elaborate on timing. She reports that she is always been heavy and her weight have been stable for the past 5 years. Currently she has no other complaints. She denies abdominal pain. She is anxious to learn more about diabetes and willing to participate with treatment. Review of Systems Constitutional: DENIES: Fever, Chills Endocrine: COMPLAINS OF: Polydipsia, Polyuria Respiratory: DENIES: Cough, Shortness of breath Cardiovascular: DENIES: Chest pain, Orthopnea Genitourinary: COMPLAINS OF: Abnormal vaginal bleeding Except as stated in HPI: all other systems reviewed are Neg Past Family Social History Allergies: Coded Allergies: Penicillin (Verified Allergy, Severe, 02/05/17) Past Medical History No other known medical problems. Newly found uterine/cervical abnormalities concerning for malignancy Newly diagnosed diabetes Past Surgical History Right arm external fixation after a traumatic fall. Reported Medications Reported Meds & Active Scripts Active No Active Prescriptions or Reported Medications Family History Father has a history of diabetes and multiple strokes. Mother has history of hypertension, hysterectomy in her 40s. She does not know the reason. Also with history of thyroid disease. Unspecified heart condition. 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 She denies tobacco use. Occasionally drink alcohol. Physical Exam Vital Signs Vital Signs Date Time Temp Pulse Resp B/P Pulse Ox O2 Delivery O2 Flow Rate FiO2 02/06/17 15:50 98.5 78 20 137/74 96 02/06/17 11:50 98.0 84 20 98/51 96 02/06/17 07:50 98.7 85 20 100/63 98 02/06/17 04:08 98.5 92 16 93/50 97 02/05/17 22:18 98.1 120 16 132/77 96 02/05/17 20:58 104 14 103/68 96 Room Air Physical Exam GENERAL: Obese female in no apparent distress. SKIN: No rashes, ecchymoses or lesions. Cool and dry. HEAD: Atraumatic. Normocephalic. No temporal or scalp tenderness. EYES: Pupils equal round and reactive. Extraocular motions intact. No scleral icterus. No injection or drainage. ENT: Nose without bleeding, purulent drainage or septal hematoma. Throat without erythema, tonsillar hypertrophy or exudate. Uvula midline. Airway patent. NECK: Trachea midline. No JVD or lymphadenopathy. Supple, nontender, no meningeal signs. CARDIOVASCULAR: Regular rate and rhythm without murmurs, gallops, or rubs. RESPIRATORY: Clear to auscultation. Breath sounds equal bilaterally. No wheezes , rales, or rhonchi. GASTROINTESTINAL: Abdomen soft, obese, non-tender, nondistended. No hepato- splenomegaly, or palpable masses. No guarding. MUSCULOSKELETAL: Extremities without clubbing, cyanosis, or edema. No joint tenderness, effusion, or edema noted. No calf tenderness. Negative Homans sign bilaterally. NEUROLOGICAL: Awake and alert. Cranial nerves II through XII intact. Motor and sensory grossly within normal limits. Five out of 5 muscle strength in all muscle groups. Normal speech. Laboratory Laboratory Tests Test 02/05/17 02/05/17 02/06/17 02/06/17 19:15 19:40 02:00 08:55 Prothrombin Time 10.8 Prothromb Time International 1.0 Ratio Activated Partial 19.4 Thromboplast Time [place] 125 Antigen 21.9 Blood Type O POSITIVE Antibody Screen NEGATIVE Blood Bank Comment Urine Color YELLOW Urine Turbidity HAZY Urine pH 5.5 Urine Specific [place] 1.037 Urine Protein TRACE Urine Glucose (UA) TRACE Urine Ketones TRACE Urine Occult Blood LARGE Urine Nitrite NEG Urine Bilirubin NEG Urine Urobilinogen LESS THAN 2.0 Urine Leukocyte Esterase MOD Urine RBC 145 Urine WBC 67 Urine Mucus FEW Microscopic Urinalysis Comment CULTURE INDICATED White Blood Count 11.1 Red Blood Count 4.10 Hemoglobin 11.9 Hematocrit 34.9 Mean Corpuscular Volume 85.1 Mean Corpuscular Hemoglobin 29.1 Mean Corpuscular Hemoglobin 34.2 Concent Red Cell Distribution Width 13.5 Platelet Count 284 Mean Platelet Volume 9.4 Neutrophils (%) (Auto) 67.2 Lymphocytes (%) (Auto) 23.5 Monocytes (%) (Auto) 6.5 Eosinophils (%) (Auto) 2.2 Basophils (%) (Auto) 0.6 Neutrophils # (Auto) 7.5 Lymphocytes # (Auto) 2.6 Monocytes # (Auto) 0.7 Eosinophils # (Auto) 0.2 Basophils # (Auto) 0.1 CBC Comment DIFF FINAL Differential Comment Date/Time Procedure Status Source Growth 02/06/17 02:00 Urine Culture Received Urine Clean Catch Pending Result Diagram: 02/06/17 0855 02/05/17 1810 Imaging Last Impressions Abdomen/Pelvis CT 02/05/17 1821 Signed Impressions: Service Date/Time: Sunday, February 05, 2017 19:51 - CONCLUSION: 1. Diffusely enlarged uterus 2. Scattered diverticulosis without inflammatory changes Jc Vega MD Chest CT 02/05/17 0000 Signed Impressions: Service Date/Time: Sunday, February 05, 2017 19:51 - CONCLUSION: 1. No acute intrathoracic disease. 2. No evidence of metastatic disease. Jc Vega MD Assessment and Plan Problem List: (1) Uterine mass ICD Code: N85.9 Status: Acute (2) Obesity ICD Code: E66.9 Status: Acute (3) Post-menopausal bleeding ICD Code: N95.0 Status: Acute (4) Newly diagnosed diabetes ICD Code: E11.9 Status: Acute Assessment and Plan 56-year-old female with: Uterine bleeding/mass: Dr. Guerrier and Dr. Vaughn following. - Plan for uterine artery embolization and exploratory laparotomy with possible hysterectomy and other procedures based on pathology -Follow H&H. Pathology pending. Newly diagnosed diabetes: Hemoglobin A1c of 12.3 - In order to achieve glycemic control quickly, will discontinue glyburide and start basal insulin with Levemir 10 units daily at bedtime. Continue sliding scale insulin. Monitor insulin requirement for the next 24-48 hours. She will likely need pre-meal insulin and a SS. - clinical document improvement educator consulted. I discussed weight loss at length with the patient. With proper treatment and significant weight loss she can hopefully get on oral medications. - Check TSH. - She will need close outpatient follow up Obesity: Discussed weight loss and lifestyle modification at length with the patient. She seems motivated. - Check lipid profile. Thank you for allow me to participate in the care of Mrs. Rodas. Will follow with you. Case DW Dr. Guerrier. Dolly Young MD Feb 06, 2017 19:21
[2017-02-06 20:00] VITALS: BP 110/66; PULSE 114; RESP 16; TEMP 99.1; O2SAT 96
[2017-02-06] MEDS ORDERED: INSULIN DETEMIR 100 UNITS/ML VIAL SQ SCH (21:00)
[2017-02-07] VITALS: BP 107/66; PULSE 79; RESP 16; TEMP 98.6; O2SAT 98
[2017-02-07 04:00] VITALS: BP 98/60; PULSE 68; RESP 16; TEMP 98.2; O2SAT 98
[2017-02-07] MEDS: LOW DOSE INSULIN NOVOLOG SUPPLEMENTAL SCALE SQ SCH ×2 (05:55→11:29)
[2017-02-07 07:50] VITALS: BP 95/62; PULSE 90; RESP 20; TEMP 96.5; O2SAT 97
[2017-02-07] MEDS ORDERED: glyBURIDE 2.5 MG TAB PO SCH (08:00)
[2017-02-07 08:31] LABS: HEMATOCRIT 33.6 % (35.0-46.0); MEAN CELL VOLUME 85.9 FL (80.0-100.0); MEAN CORPUSCULAR HEMOGLOBIN 29.3 PG (27.0-34.0); MEAN CORPUSCULAR HGB CONC 34.1 % (32.0-36.0); PLATELET COUNT 254 TH/MM3 (150-450); RED BLOOD COUNT 3.92 MIL/MM3 (4.00-5.30); RED CELL DISTRIBUTION WIDTH 13.3 % (11.6-17.2); WHITE BLOOD COUNT 9.7 TH/MM3 (4.0-11.0)
[2017-02-07 08:38] LABS: REVIEW FLAG FINAL
[2017-02-07 08:43] LABS: BICARBONATE 28.3 MEQ/L (21.0-32.0); HDL CHOLESTEROL 36.9 MG/DL (40.0-60.0); POTASSIUM 3.4 MEQ/L (3.5-5.1)
--- NOTE | 2017-02-07 08:59 | PD.CONS ---
HPI Chief Complaint bleeding from pelvic mass with diagnostics ongoing undiagnosed diabetes with A1c 12.8 obesity Date Seen: Feb 07, 2017 Time Seen: 08:57 Travel History International Travel<30 Days: No Contact w/Intl Traveler<30Days: No Known Affected Area: No History of Present Illness HPI Care plan discussed with Stephanie Angel and her sister Honey. Bleeding is slightly increased today will order new labs and maintain active Type and Screen Appreciate Dr. Young and his help with diabetes. see orders Allergies-Medications (Allergen,Severity, Reaction): Coded Allergies: Penicillin (Verified Allergy, Severe, 02/05/17) Home Meds No Active Prescriptions or Reported Meds Physical Exam Vital Signs Date Time Temp Pulse Resp B/P Pulse Ox O2 Delivery O2 Flow Rate FiO2 02/07/17 04:00 98.2 68 16 98/60 98 02/07/17 00:00 98.6 79 16 107/66 98 02/06/17 20:00 99.1 114 16 110/66 96 02/06/17 15:50 98.5 78 20 137/74 96 02/06/17 11:50 98.0 84 20 98/51 96 Narrative GENERAL: Well-nourished, well-developed patient. SKIN: Warm and dry. HEAD: Normocephalic and atraumatic. EYES: No scleral icterus. No injection or drainage. ENT: No nasal drainage noted. Mucous membranes pink. Airway patent. NECK: Supple, trachea midline. No JVD. CARDIOVASCULAR: Regular rate and rhythm without murmurs, gallops, or rubs. RESPIRATORY: Breath sounds equal bilaterally. No accessory muscle use. BREASTS: Bilateral exam showed no masses , no retractions, no nipple discharge. ABDOMEN/GI: Abdomen soft, non-tender, bowel sounds present, no rebound, no guarding blood on kai pads moderate EXTREMITIES: No cyanosis or edema. BACK: Nontender without obvious deformity. No CVA tenderness. NEUROLOGICAL: Awake and alert. Motor and sensory grossly within normal limits. Five out of 5 muscle strength in all muscle groups. Normal speech. Data Data Orders Invasive Rad Dept Consult (02/06/17 ) Npo After Midnight W/ Po Meds (02/10/17 Dinner) Electrocardiogram (02/06/17 ) Consult Hospitalist (02/06/17 ) Consult Steam Conditioning Operator (02/06/17 ) Glyburide (Diabeta) (02/07/17 08:00) Insulin Detemir Inj (Levemir Inj) (02/06/17 21:00) Thyroid Stimulating Hormone (02/06/17 19:08) Cbc No Diff, Includes Plts (02/07/17 06:00) Basic Metabolic Panel (Bmp) (02/07/17 06:00) Lipid Profile (02/07/17 06:00) (Hub Use Only)Inp Phy Cons/Ref (02/07/17 ) Labs Laboratory Tests Test 02/07/17 06:32 White Blood Count 9.7 Red Blood Count 3.92 Hemoglobin 11.5 Hematocrit 33.6 Mean Corpuscular Volume 85.9 Mean Corpuscular Hemoglobin 29.3 Mean Corpuscular Hemoglobin 34.1 Concent Red Cell Distribution Width 13.3 Platelet Count 254 Mean Platelet Volume 9.4 Sodium Level 141 Potassium Level 3.4 Chloride Level 102 Carbon Dioxide Level 28.3 Anion Gap 11 Blood Urea Nitrogen 8 Creatinine 0.60 Estimat Glomerular Filtration 103 Rate Random Glucose 191 Calcium Level 8.3 Triglycerides Level 119 Cholesterol Level 127 LDL Cholesterol 66 HDL Cholesterol 36.9 Cholesterol/HDL Ratio 3.44 Date/Time Procedure Status Source Growth 02/06/17 02:00 Urine Culture Received Urine Clean Catch Pending MDM Admitting diagnosis: vag bleeding, tumor. Scripts No Active Prescriptions or Reported Meds Nona Guerrier MD Feb 07, 2017 08:59
[2017-02-07 11:50] VITALS: BP 115/71; PULSE 100; RESP 20; TEMP 98; O2SAT 98
--- NOTE | 2017-02-07 11:54 | HHI.PR ---
Subjective Remarks Patient reports that she is feeling well. Having slightly more vaginal bleeding today compared to yesterday. Blood glucose still uncontrolled. Objective Vitals Vital Signs Date Time Temp Pulse Resp B/P Pulse Ox O2 Delivery O2 Flow Rate FiO2 02/07/17 07:50 96.5 90 20 95/62 97 02/07/17 04:00 98.2 68 16 98/60 98 02/07/17 00:00 98.6 79 16 107/66 98 02/06/17 20:00 99.1 114 16 110/66 96 02/06/17 15:50 98.5 78 20 137/74 96 I/O 02/06/17 02/06/17 02/06/17 02/07/17 02/07/17 02/07/17 07:00 15:00 23:00 07:00 15:00 23:00 Intake Total 300 ml 360 ml 300 ml 350 ml Output Total 400 ml Balance -100 ml 360 ml 300 ml 350 ml Intake Oral 300 ml 360 ml 300 ml 350 ml Output Urine Total 400 ml # Voids 4 3 3 # Bowel Movements 0 0 0 0 # Sanitary Pads 2 Pads 2 Pads Result Diagram: 02/07/17 0632 02/07/17 0632 Imaging Last Impressions Abdomen/Pelvis CT 02/05/17 1821 Signed Impressions: Service Date/Time: Sunday, February 05, 2017 19:51 - CONCLUSION: 1. Diffusely enlarged uterus 2. Scattered diverticulosis without inflammatory changes Jc Vega MD Chest CT 02/05/17 0000 Signed Impressions: Service Date/Time: Sunday, February 05, 2017 19:51 - CONCLUSION: 1. No acute intrathoracic disease. 2. No evidence of metastatic disease. Jc Vega MD Objective Remarks GENERAL: Obese female in no apparent distress. CARDIOVASCULAR: Normal rate and regular rhythm without murmurs, gallops, or rubs. RESPIRATORY: Good respiratory efforts. Breath sounds equal and clear to auscultation bilaterally. GASTROINTESTINAL: Abdomen soft, non-tender, non-distended. Normal active bowel sounds MUSCULOSKELETAL: Extremities without cyanosis, or edema. NEURO: Alert & Oriented x4 to person, place, time, situation. Moves all ext x4 PSYCH: Appropriate mood and affect. A/P Problem List: (1) Uterine mass ICD Code: N85.9 Status: Acute (2) Obesity ICD Code: E66.9 Status: Acute (3) Post-menopausal bleeding ICD Code: N95.0 Status: Acute (4) Newly diagnosed diabetes ICD Code: E11.9 Status: Acute Assessment and Plan 56-year-old female with: Uterine bleeding/mass: Dr. Guerrier and Dr. Vaughn following. - Plan for uterine artery embolization and exploratory laparotomy with possible hysterectomy and other procedures based on pathology - Follow H&H. Pathology pending. Newly diagnosed diabetes: Hemoglobin A1c of 12.3 - Increase Levemir to 10 units BID. Med SSI with accuchecks. - nurse informatics educator consulted. I discussed weight loss at length with the patient. With proper treatment and significant weight loss she can hopefully get on oral medications. - Thyroid functions ok. - She will need close outpatient follow up Diverticulosis: Advise high-fiber diet. Obesity: Discussed weight loss and lifestyle modification at length with the patient. She seems motivated. Lipid profile OK except for low HDL. Exercise would help. Dolly Young MD Feb 07, 2017 11:54
[2017-02-07] MEDS: INSULIN DETEMIR 100 UNITS/ML VIAL SQ SCH ×2 (12:43→20:46)
--- NOTE | 2017-02-07 14:03 | EKG ---
Date Performed: 02/06/2017 Time Performed: 16:26:59 PTAGE: 56 years EKG: Sinus rhythm WITH SINUS ARRHYTHMIA LOW QRS VOLTAGE IN PRECORDIAL LEADS BORDERLINE ECG NO PREVIOUS TRACING DOCTOR: Travis Lorenzana Interpretating Date/Time 02/07/2017 13:56:30
[2017-02-07] MEDS ORDERED: DEXTROSE 50% IN WATER 50 ML VIAL(D50) IV PUSH PRN (14:30)
[2017-02-07] MEDS ORDERED: GLUCAGON 1 MG/ML VIAL OTHER PRN (14:30)
[2017-02-07 15:00] VITALS: BP 121/75; PULSE 110; RESP 20; TEMP 98; O2SAT 96
[2017-02-07] MEDS ORDERED: POTASSIUM CHLORIDE 10 MEQ CONTROLLED RELEASE TAB PO ONE (15:00)
[2017-02-07] MEDS: INSULIN ASPART SUPPLEMENTAL SCALE SQ SCH ×2 (17:09→20:43)
[2017-02-07] MEDS ORDERED: ZINC OXIDE 40% OINT 60 GM TUBE TOPICAL PRN (18:00)
[2017-02-07 21:12] VITALS: BP 124/67; PULSE 113; RESP 16; TEMP 97.2; O2SAT 99
[2017-02-08] VITALS: BP 110/64; PULSE 112; RESP 18; TEMP 97.8; O2SAT 97
[2017-02-08 04:00] VITALS: BP 89/50; PULSE 96; RESP 18; TEMP 98.5; O2SAT 95
[2017-02-08] MEDS: INSULIN ASPART SUPPLEMENTAL SCALE SQ SCH ×4 (05:52→21:42)
[2017-02-08] MEDS: oxyCODONE/ACETAMINOPHEN 5 MG/325 MG TAB PO PRN ×3 (06:16→21:39)
[2017-02-08 08:00] VITALS: BP 104/73; PULSE 99; RESP 16; TEMP 98.8; O2SAT 96
[2017-02-08] MEDS: INSULIN DETEMIR 100 UNITS/ML VIAL SQ SCH ×2 (09:05→21:41)
--- NOTE | 2017-02-08 11:09 | HHI.PR ---
Subjective Remarks Blood glucose improving but not yet at goal. Still having vaginal bleeding. Same as yesterday. She would like to shower. Objective Vitals Vital Signs Date Time Temp Pulse Resp B/P Pulse Ox O2 Delivery O2 Flow Rate FiO2 02/08/17 04:00 98.5 96 18 89/50 95 02/08/17 00:00 97.8 112 18 110/64 97 02/07/17 21:12 97.2 113 16 124/67 99 02/07/17 15:00 98.0 110 20 121/75 96 02/07/17 11:50 98.0 100 20 115/71 98 I/O 02/07/17 02/07/17 02/07/17 02/08/17 02/08/17 02/08/17 07:00 15:00 23:00 07:00 15:00 23:00 Intake Total 350 ml 1080 ml 360 ml Balance 350 ml 1080 ml 360 ml Intake Oral 350 ml 1080 ml 360 ml # Voids 3 3 3 # Bowel Movements 0 0 # Sanitary Pads 2 Pads 2 Pads Result Diagram: 02/07/17 0632 02/07/17 0632 Objective Remarks GENERAL: Obese female in no apparent distress. CARDIOVASCULAR: Normal rate and regular rhythm without murmurs, gallops, or rubs. RESPIRATORY: Good respiratory efforts. Breath sounds equal and clear to auscultation bilaterally. GASTROINTESTINAL: Abdomen soft, non-tender, non-distended. Normal active bowel sounds MUSCULOSKELETAL: Extremities without cyanosis, or edema. NEURO: Alert & Oriented x4 to person, place, time, situation. Moves all ext x4 PSYCH: Appropriate mood and affect. A/P Problem List: (1) Uterine mass ICD Code: N85.9 Status: Acute (2) Obesity ICD Code: E66.9 Status: Acute (3) Post-menopausal bleeding ICD Code: N95.0 Status: Acute (4) Newly diagnosed diabetes ICD Code: E11.9 Status: Acute Assessment and Plan 56-year-old female with: Uterine bleeding/mass: Dr. Guerrier and Dr. Vaughn following. - Plan for uterine artery embolization and exploratory laparotomy with possible hysterectomy and other procedures based on pathology - Follow H&H. Pathology pending. Newly diagnosed diabetes: Hemoglobin A1c of 12.3 - Increase Levemir to 12 units BID. Med SSI with accuchecks. - outreach educator consulted. I discussed weight loss at length with the patient. - Thyroid functions ok. - She will need close outpatient follow up Diverticulosis: Advise high-fiber diet. Obesity: Discussed weight loss and lifestyle modification at length with the patient. She seems motivated. Lipid profile OK except for low HDL. Physical activity can help raise HDL. Dolly Young MD Feb 08, 2017 11:09
[2017-02-08 12:00] VITALS: BP 119/58; PULSE 96; RESP 16; TEMP 96.6; O2SAT 100
[2017-02-08 16:00] VITALS: BP 113/74; PULSE 99; RESP 16; TEMP 98.2; O2SAT 98
--- NOTE | 2017-02-08 16:46 | HHI.PR ---
LOAN SERVICE OFFICER Note Note Pt of Dr. Guerrier's, I am covering for Dr. Guerrier today & seeing pt per her request, please see additional OBGYN/ONC/IM consult notes for full details on complicated pt case. S: feeling good, up at nurses station when I entered floor, in good spirits, no pain, has had BM today and voiding, changes pad every times goes to the bathroom but reports same amount of bleeding as yesterday, never saturating pad in between changes. Has some questions re: bowel prep to be on done on Saturday, otherwise no complaints. Pain 0/10. O: Vital Signs Date Time Temp Pulse Resp B/P Pulse Ox O2 Delivery O2 Flow Rate FiO2 02/08/17 12:00 96.6 96 16 119/58 100 02/08/17 08:00 98.8 99 16 104/73 96 02/08/17 04:00 98.5 96 18 89/50 95 02/08/17 00:00 97.8 112 18 110/64 97 02/07/17 21:12 97.2 113 16 124/67 99 Allergies Coded Allergies Type Severity Reaction Last Updated Verified Penicillin Allergy Severe 02/05/17 Yes Recent Impressions Abdomen/Pelvis CT 02/05/17 1821 Signed Impressions: Service Date/Time: Sunday, February 05, 2017 19:51 - CONCLUSION: 1. Diffusely enlarged uterus 2. Scattered diverticulosis without inflammatory changes Jc Vega MD //////// 06:00 18:00 06:00 18:00 06:00 18:00 Intake Total 0 ml 660 ml 300 ml 1430 ml 360 ml Output Total 400 ml Balance 0 ml 260 ml 300 ml 1430 ml 360 ml Intake Oral 0 ml 660 ml 300 ml 1430 ml 360 ml Output Urine Total 400 ml # Voids 1 4 3 6 3 # Bowel Movements 0 0 0 0 # Sanitary Pads 3 Pads 2 Pads 2 Pads 2 Pads Laboratory Tests Test 02/05/17 02/05/17 02/05/17 02/06/17 18:10 19:15 19:40 02:00 White Blood Count 13.2 TH/MM3 Red Blood Count 3.97 MIL/MM3 Hemoglobin 11.7 GM/DL Hematocrit 35.0 % Mean Corpuscular Volume 88.0 FL Mean Corpuscular Hemoglobin 29.3 PG Mean Corpuscular Hemoglobin 33.3 % Concent Red Cell Distribution Width 13.9 % Platelet Count 258 TH/MM3 Mean Platelet Volume 9.5 FL Neutrophils (%) (Auto) 77.1 % Lymphocytes (%) (Auto) 16.6 % Monocytes (%) (Auto) 5.3 % Eosinophils (%) (Auto) 0.3 % Basophils (%) (Auto) 0.7 % Neutrophils # (Auto) 10.2 TH/MM3 Lymphocytes # (Auto) 2.2 TH/MM3 Monocytes # (Auto) 0.7 TH/MM3 Eosinophils # (Auto) 0.0 TH/MM3 Basophils # (Auto) 0.1 TH/MM3 CBC Comment DIFF FINAL Differential Comment Reticulocyte Count 2.8 % Absolute Reticulocyte Count 117.2 MIL/L Sodium Level 136 MEQ/L Potassium Level 3.7 MEQ/L Chloride Level 101 MEQ/L Carbon Dioxide Level 25.8 MEQ/L Anion Gap 9 MEQ/L Blood Urea Nitrogen 12 MG/DL Creatinine 0.94 MG/DL Estimat Glomerular Filtration 61 ML/MIN Rate Random Glucose 326 MG/DL Hemoglobin A1c 12.3 % Calcium Level 8.4 MG/DL Ferritin 33 NG/ML Total Bilirubin 0.4 MG/DL Aspartate Amino Transf 10 U/L (AST/SGOT) Alanine Aminotransferase 16 U/L (ALT/SGPT) Alkaline Phosphatase 94 U/L Total Protein 6.9 GM/DL Albumin 3.3 GM/DL Thyroid Stimulating Hormone 2.120 uIU/ML 3rd Gen Prothrombin Time 10.8 SEC Prothromb Time International 1.0 RATIO Ratio Activated Partial 19.4 SEC Thromboplast Time CA 125 Antigen 21.9 U/ML Blood Type O POSITIVE Antibody Screen NEGATIVE Blood Bank Comment Urine Color YELLOW Urine Turbidity HAZY Urine pH 5.5 Urine Specific [place] 1.037 Urine Protein TRACE mg/dL Urine Glucose (UA) TRACE mg/dL Urine Ketones TRACE mg/dL Urine Occult Blood LARGE Urine Nitrite NEG Urine Bilirubin NEG Urine Urobilinogen LESS THAN 2.0 MG/DL Urine Leukocyte Esterase MOD Urine RBC 145 /hpf Urine WBC 67 /hpf Urine Mucus FEW /lpf Microscopic Urinalysis Comment CULTURE INDICATED Test 02/06/17 02/07/17 08:55 06:32 White Blood Count 11.1 TH/MM3 9.7 TH/MM3 Red Blood Count 4.10 MIL/MM3 3.92 MIL/MM3 Hemoglobin 11.9 GM/DL 11.5 GM/DL Hematocrit 34.9 % 33.6 % Mean Corpuscular Volume 85.1 FL 85.9 FL Mean Corpuscular Hemoglobin 29.1 PG 29.3 PG Mean Corpuscular Hemoglobin 34.2 % 34.1 % Concent Red Cell Distribution Width 13.5 % 13.3 % Platelet Count 284 TH/MM3 254 TH/MM3 Mean Platelet Volume 9.4 FL 9.4 FL Neutrophils (%) (Auto) 67.2 % Lymphocytes (%) (Auto) 23.5 % Monocytes (%) (Auto) 6.5 % Eosinophils (%) (Auto) 2.2 % Basophils (%) (Auto) 0.6 % Neutrophils # (Auto) 7.5 TH/MM3 Lymphocytes # (Auto) 2.6 TH/MM3 Monocytes # (Auto) 0.7 TH/MM3 Eosinophils # (Auto) 0.2 TH/MM3 Basophils # (Auto) 0.1 TH/MM3 CBC Comment DIFF FINAL Differential Comment Sodium Level 141 MEQ/L Potassium Level 3.4 MEQ/L Chloride Level 102 MEQ/L Carbon Dioxide Level 28.3 MEQ/L Anion Gap 11 MEQ/L Blood Urea Nitrogen 8 MG/DL Creatinine 0.60 MG/DL Estimat Glomerular Filtration 103 ML/MIN Rate Random Glucose 191 MG/DL Calcium Level 8.3 MG/DL Triglycerides Level 119 MG/DL Cholesterol Level 127 MG/DL LDL Cholesterol 66 MG/DL HDL Cholesterol 36.9 MG/DL Cholesterol/HDL Ratio 3.44 RATIO Gen: A&O x 3, NAD, ambulating, pleasant, conversant CV: RRR no murmur Resp: CTA b/l without wheeze Abd: protuberant, abdominal mass (suspect uterine fundus) at approx 20 cm (at umbilicus) although exam lmtd by habitus : deferred per pt request Ext: no c/c/e x 4 A/P: 56 yo postmenopausal pt admitted for vaginal bleeding, large pelvic mass, pt without medical care for years, diagnosed with diabetes on admission, appreciate management with IM team - pelvic mass: malignancy suspected, biopsies confounded by necrosis/ inflammation; pt scheduled for uterine artery embolization Saturday02/11/17 with IR; then likely Ex-lap PAU/BSO, staging with Dr. Vaughn & Dr. Guerrier - plan bowel prep for Saturday (clears, go lytely, etc., per worksheet given by Oncology Team) - vaginal bleeding stable, not anemic, continue to monitor, plan labs tmrw or Sun per Dr. Guerrier's discretion; Dr. Guerrier to resume seeing pt as of tmrw - continue all care as previously stated, no acute changes at this time Plans reviewed w pt, her sister, and her parents at bedside. Stacey Linn MD Feb 08, 2017 16:46
[2017-02-08 20:00] VITALS: BP 105/63; PULSE 90; RESP 18; TEMP 98.6; O2SAT 95
[2017-02-08] MEDS: MAGNESIUM HYDROXIDE SUSP 30 ML CUP PO PRN (22:35)
[2017-02-09] VITALS: BP 126/76; PULSE 98; RESP 19; TEMP 98; O2SAT 98
[2017-02-09] MEDS: BISACODYL 10 MG SUPP RECTAL PRN (03:45)
[2017-02-09 04:00] VITALS: BP 118/80; PULSE 122; RESP 19; TEMP 97.1; O2SAT 99
[2017-02-09] MEDS: oxyCODONE/ACETAMINOPHEN 5 MG/325 MG TAB PO PRN ×3 (05:23→20:24)
[2017-02-09] MEDS: INSULIN ASPART SUPPLEMENTAL SCALE SQ SCH ×4 (05:25→20:20)
[2017-02-09 07:52] LABS: AUTOMATED NEUTROPHIL # 7.6 TH/MM3 (1.8-7.7); BASOPHIL # 0.1 TH/MM3 (0-0.2); BASOPHIL % 0.6 % (0.0-2.0); EOSINOPHIL # 0.1 TH/MM3 (0-0.4); EOSINOPHIL % 1.1 % (0.0-4.0); HEMATOCRIT 32.5 % (35.0-46.0); HEMO FLAGS DIFF FINAL; LYMPH % 18.9 % (9.0-44.0); MEAN CELL VOLUME 86.9 FL (80.0-100.0); MEAN CORPUSCULAR HEMOGLOBIN 28.8 PG (27.0-34.0); MEAN CORPUSCULAR HGB CONC 33.1 % (32.0-36.0); NEUT % 72.4 % (16.0-70.0); PLATELET COUNT 232 TH/MM3 (150-450); RED BLOOD COUNT 3.74 MIL/MM3 (4.00-5.30); RED CELL DISTRIBUTION WIDTH 13.4 % (11.6-17.2); WHITE BLOOD COUNT 10.5 TH/MM3 (4.0-11.0)
[2017-02-09 07:57] LABS: BICARBONATE 24.3 MEQ/L (21.0-32.0); POTASSIUM 3.6 MEQ/L (3.5-5.1)
[2017-02-09 08:46] VITALS: BP 112/63; PULSE 100; RESP 18; TEMP 97.6; O2SAT 98
[2017-02-09] MEDS: INSULIN DETEMIR 100 UNITS/ML VIAL SQ SCH (08:51)
--- NOTE | 2017-02-09 09:39 | HHI.PR ---
Subjective Remarks Had some issues with constipation which resolved. Blood glucose still elevated. We discussed diet. Objective Vitals Vital Signs Date Time Temp Pulse Resp B/P Pulse Ox O2 Delivery O2 Flow Rate FiO2 02/09/17 08:46 97.6 100 18 112/63 98 02/09/17 06:28 20 02/09/17 04:00 97.1 122 19 118/80 99 02/09/17 00:00 98.0 98 19 126/76 98 02/08/17 22:39 19 02/08/17 20:00 98.6 90 18 105/63 95 02/08/17 16:00 98.2 99 16 113/74 98 02/08/17 12:00 96.6 96 16 119/58 100 I/O 02/08/17 02/08/17 02/08/17 02/09/17 02/09/17 02/09/17 07:00 15:00 23:00 07:00 15:00 23:00 Intake Total 360 ml 720 ml 480 ml 480 ml Balance 360 ml 720 ml 480 ml 480 ml Intake Oral 360 ml 720 ml 480 ml 480 ml # Voids 3 4 3 2 # Sanitary Pads 4 Pads Result Diagram: 02/09/17 0650 02/09/17 0650 Objective Remarks GENERAL: Obese female in no apparent distress. CARDIOVASCULAR: Normal rate and regular rhythm without murmurs, gallops, or rubs. RESPIRATORY: Good respiratory efforts. Breath sounds equal and clear to auscultation bilaterally. GASTROINTESTINAL: Abdomen soft, non-tender, non-distended. Normal active bowel sounds MUSCULOSKELETAL: Extremities without cyanosis, or edema. NEURO: Alert & Oriented x4 to person, place, time, situation. Moves all ext x4 PSYCH: Appropriate mood and affect. A/P Problem List: (1) Uterine mass ICD Code: N85.9 Status: Acute (2) Obesity ICD Code: E66.9 Status: Acute (3) Post-menopausal bleeding ICD Code: N95.0 Status: Acute (4) Newly diagnosed diabetes ICD Code: E11.9 Status: Acute Assessment and Plan 56-year-old female with: Uterine bleeding/mass: Dr. Guerrier and Dr. Vaughn following. - Plan for uterine artery embolization and exploratory laparotomy with possible hysterectomy and other procedures based on pathology intraoperatively. - Follow H&H. 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 Newly diagnosed diabetes: Hemoglobin A1c of 12.3 - Increase Levemir to 15 units BID. Med SSI with accuchecks. 1500-calorie diet. - senior health educator consulted. I discussed weight loss at length with the patient. - Thyroid functions ok. - She will need close outpatient follow up Diverticulosis: Advise high-fiber diet. Obesity: Discussed weight loss and lifestyle modification at length with the patient. She seems motivated. Lipid profile OK except for low HDL. Physical activity can help raise HDL. Dolly Young MD Feb 09, 2017 09:39
[2017-02-09 12:01] VITALS: BP 104/64; PULSE 89; RESP 18; TEMP 97; O2SAT 95
[2017-02-09 16:32] VITALS: BP 114/83; PULSE 115; RESP 18; TEMP 97.3; O2SAT 98
--- NOTE | 2017-02-09 17:16 | PD.CONS ---
HPI Chief Complaint bleeding from uterine mass that is extruding from/taking over cervix and vault being stabilized for surgery on Saturday Date Seen: Feb 09, 2017 Time Seen: 17:10 Travel History International Travel<30 Days: No Contact w/Intl Traveler<30Days: No Known Affected Area: No History of Present Illness HPI Quite 24 hours. Bleeding (more a serosanguanous fluid) same to slightly increased. Has moved bowels but will begin prep in am saturday has begun to experience urinary retention and espinoza placed with clear urine noted pain managed spirits good. Allergies-Medications (Allergen,Severity, Reaction): Coded Allergies: Penicillin (Verified Allergy, Severe, 02/05/17) Home Meds No Active Prescriptions or Reported Meds Physical Exam Vital Signs Date Time Temp Pulse Resp B/P Pulse Ox O2 Delivery O2 Flow Rate FiO2 02/09/17 16:32 97.3 115 18 114/83 98 02/09/17 12:01 97.0 89 18 104/64 95 02/09/17 08:46 97.6 100 18 112/63 98 02/09/17 06:28 20 02/09/17 04:00 97.1 122 19 118/80 99 02/09/17 00:00 98.0 98 19 126/76 98 02/08/17 22:39 19 02/08/17 20:00 98.6 90 18 105/63 95 Narrative GENERAL: Well-nourished, well-developed patient. SKIN: Warm and dry. HEAD: Normocephalic and atraumatic. EYES: No scleral icterus. No injection or drainage. ENT: No nasal drainage noted. Mucous membranes pink. Airway patent. NECK: Supple, trachea midline. No JVD. CARDIOVASCULAR: Regular rate and rhythm without murmurs, gallops, or rubs. RESPIRATORY: Breath sounds equal bilaterally. No accessory muscle use. BREASTS: Bilateral exam showed no masses , no retractions, no nipple discharge. ABDOMEN/GI: Abdomen soft, non-tender, bowel sounds present, no rebound, no guarding EXTREMITIES: No cyanosis or edema. BACK: Nontender without obvious deformity. No CVA tenderness. NEUROLOGICAL: Awake and alert. Motor and sensory grossly within normal limits. Five out of 5 muscle strength in all muscle groups. Normal speech. Data Data Orders Magnesium Hydroxide Liq (Milk Of Magnesi (02/08/17 22:00) Bisacodyl Supp (Dulcolax Supp) (02/08/17 22:00) Red Blood Cells (Rbc) (02/11/17 06:00) Diet Diabetic (02/09/17 Breakfast) Insulin Detemir Inj (Levemir Inj) (02/09/17 21:00) Bladder Scan PRN (02/09/17 10:06) Labs Laboratory Tests Test 02/09/17 06:50 White Blood Count 10.5 Red Blood Count 3.74 Hemoglobin 10.8 Hematocrit 32.5 Mean Corpuscular Volume 86.9 Mean Corpuscular Hemoglobin 28.8 Mean Corpuscular Hemoglobin 33.1 Concent Red Cell Distribution Width 13.4 Platelet Count 232 Mean Platelet Volume 9.8 Neutrophils (%) (Auto) 72.4 Lymphocytes (%) (Auto) 18.9 Monocytes (%) (Auto) 7.0 Eosinophils (%) (Auto) 1.1 Basophils (%) (Auto) 0.6 Neutrophils # (Auto) 7.6 Lymphocytes # (Auto) 2.0 Monocytes # (Auto) 0.7 Eosinophils # (Auto) 0.1 Basophils # (Auto) 0.1 CBC Comment DIFF FINAL Differential Comment Sodium Level 138 Potassium Level 3.6 Chloride Level 101 Carbon Dioxide Level 24.3 Anion Gap 13 Blood Urea Nitrogen 13 Creatinine 0.73 Estimat Glomerular Filtration 82 Rate Random Glucose 184 Calcium Level 8.5 Date/Time Procedure Status Source Growth 02/06/17 02:00 Urine Culture - Final Complete Urine Clean Catch 10-50,000 CFU/ML MIXED GRAM POSITIVE ... MDM Plan prep saturday for saturday's artery embolization and exploratory surgery Admitting diagnosis: vag bleeding, tumor. Scripts No Active Prescriptions or Reported Meds Nona Guerrier MD Feb 09, 2017 17:16
[2017-02-09 20:00] VITALS: BP 136/70; PULSE 121; RESP 19; TEMP 98.3; O2SAT 96
[2017-02-09] MEDS ORDERED: INSULIN DETEMIR 100 UNITS/ML VIAL SQ SCH (21:00)
[2017-02-10] VITALS: BP 102/55; PULSE 95; RESP 18; TEMP 98.1; O2SAT 95
[2017-02-10] MEDS: oxyCODONE/ACETAMINOPHEN 5 MG/325 MG TAB PO PRN ×4 (00:07→14:51)
[2017-02-10 04:00] VITALS: BP 108/69; PULSE 83; RESP 18; TEMP 96.5; O2SAT 95
[2017-02-10] MEDS: INSULIN ASPART SUPPLEMENTAL SCALE SQ SCH ×4 (05:21→20:22)
[2017-02-10 07:50] VITALS: BP 111/58; PULSE 89; RESP 20; TEMP 96.5; O2SAT 96
--- NOTE | 2017-02-10 08:26 | HHI.PR ---
Subjective Remarks Blood glucose improving but not at goal yet. Had issues with urinary retention, Potts inserted. Draining well. Objective Vitals Vital Signs Date Time Temp Pulse Resp B/P Pulse Ox O2 Delivery O2 Flow Rate FiO2 02/10/17 04:00 96.5 83 18 108/69 95 02/10/17 00:00 98.1 95 18 102/55 95 02/09/17 20:00 98.3 121 19 136/70 96 02/09/17 16:32 97.3 115 18 114/83 98 02/09/17 12:01 97.0 89 18 104/64 95 02/09/17 08:46 97.6 100 18 112/63 98 I/O 02/09/17 02/09/17 02/09/17 02/10/17 02/10/17 02/10/17 07:00 15:00 23:00 07:00 15:00 23:00 Intake Total 480 ml 960 ml 480 ml Output Total 1000 ml 1500 ml 1250 ml Balance 480 ml -1000 ml -540 ml -770 ml Intake Oral 480 ml 960 ml 480 ml Output Urine Total 1000 ml 1500 ml 1250 ml Bladder Scan Volume Amount 655 ml # Voids 2 # Bowel Movements 1 # Sanitary Pads 4 Pads 5 Pads Result Diagram: 02/09/17 0650 02/09/17 0650 Objective Remarks GENERAL: Obese female in no apparent distress. CARDIOVASCULAR: Normal rate and regular rhythm without murmurs, gallops, or rubs. RESPIRATORY: Good respiratory efforts. Breath sounds equal and clear to auscultation bilaterally. GASTROINTESTINAL: Abdomen soft, non-tender, non-distended. Normal active bowel sounds MUSCULOSKELETAL: Extremities without cyanosis, or edema. NEURO: Alert & Oriented x4 to person, place, time, situation. Moves all ext x4 PSYCH: Appropriate mood and affect. A/P Problem List: (1) Uterine mass ICD Code: N85.9 Status: Acute (2) Obesity ICD Code: E66.9 Status: Acute (3) Post-menopausal bleeding ICD Code: N95.0 Status: Acute (4) Newly diagnosed diabetes ICD Code: E11.9 Status: Acute Assessment and Plan Hospitalist service following pleasant 56-year-old female with: Uterine bleeding/mass: Dr. Guerrier and Dr. Vaughn following. - Plan for uterine artery embolization and exploratory laparotomy with possible hysterectomy and other procedures based on pathology intraoperatively. - Follow H&H. 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 Anemia secondary to blood loss: H&H trending down. Will likely need transfusion with surgery. Surgical team following closely. Urinary retention: Probably related to above. Potts in place. Newly diagnosed diabetes: Hemoglobin A1c of 12.3 - Increase Levemir to 18 units BID. Med SSI with accuchecks. 1500-calorie diet. - brush maker machine consulted. I discussed weight loss at length with the patient. - Thyroid functions ok. - She will need close outpatient follow up Diverticulosis: Advise high-fiber diet. Obesity: Discussed weight loss and lifestyle modification at length with the patient. She seems motivated. Lipid profile OK except for low HDL. Physical activity can help raise HDL. Dolly Young MD Feb 10, 2017 08:25
[2017-02-10] MEDS: INSULIN DETEMIR 100 UNITS/ML VIAL SQ SCH ×2 (08:43→20:23)
[2017-02-10 08:48] LABS: BASOPHIL # 0.1 TH/MM3 (0-0.2); BASOPHIL % 0.7 % (0.0-2.0); EOSINOPHIL # 0.2 TH/MM3 (0-0.4); EOSINOPHIL % 2.3 % (0.0-4.0); HEMO FLAGS DIFF FINAL; LYMPH % 17.7 % (9.0-44.0); MEAN CELL VOLUME 86.3 FL (80.0-100.0); MEAN CORPUSCULAR HEMOGLOBIN 28.4 PG (27.0-34.0); MEAN CORPUSCULAR HGB CONC 32.8 % (32.0-36.0); MONO % 7.1 % (0.0-8.0); NEUT % 72.2 % (16.0-70.0); PLATELET COUNT 254 TH/MM3 (150-450); RED BLOOD COUNT 3.47 MIL/MM3 (4.00-5.30); RED CELL DISTRIBUTION WIDTH 13.6 % (11.6-17.2); WHITE BLOOD COUNT 11.1 TH/MM3 (4.0-11.0)
[2017-02-10] MEDS ORDERED: ONDANSETRON ODT 4 MG TAB PO ONE (09:00)
[2017-02-10] MEDS ORDERED: PEG (High)/E-LYTE SOLN 4000 ML BTL PO ONE (09:30)
[2017-02-10 11:00] LABS: BICARBONATE 25.5 MEQ/L (21.0-32.0); POTASSIUM 3.6 MEQ/L (3.5-5.1)
[2017-02-10 11:30] VITALS: BP 110/70; PULSE 115; RESP 20; TEMP 97.2; O2SAT 96
[2017-02-10 15:50] VITALS: BP 109/55; PULSE 94; RESP 20; TEMP 96.5; O2SAT 100
[2017-02-10 20:00] VITALS: BP 123/63; PULSE 97; RESP 18; TEMP 97; O2SAT 99
[2017-02-11] VITALS (7 sets, daily range): BP systolic 95–116; BP diastolic 54–65; PULSE 70–94; RESP 17–20; TEMP 96.6–98.5; O2SAT 92–97
[2017-02-11] MEDS ORDERED: ACETAMINOPHEN 325 MG TAB PO PRN (05:45)
[2017-02-11] MEDS: oxyCODONE/ACETAMINOPHEN 5 MG/325 MG TAB PO PRN ×4 (05:45→22:21)
[2017-02-11] MEDS: INSULIN ASPART SUPPLEMENTAL SCALE SQ SCH ×4 (05:45→21:00)
[2017-02-11] MEDS ORDERED: DOCUSATE SODIUM 50 MG/SENNA 8.6 MG TAB PO PRN (05:45)
[2017-02-11] MEDS ORDERED: ALUMINUM/MAGNESIUM/SIMETH 30 ML CUP PO PRN (05:45)
[2017-02-11] MEDS ORDERED: CALCIUM CARBONATE 500 MG CHEWABLE TAB CHEW PRN (05:45)
[2017-02-11] MEDS ORDERED: D5-NS + KCL 20 MEQ INJ 1,000 ML IV SCH (06:00)
[2017-02-11] MEDS ORDERED: NS + KCL 20 MEQ INJ 1,000 ML IV PRN (06:00)
[2017-02-11] MEDS ORDERED: LEVOFLOXACIN 500 MG PREMIX INJ 100 ML IV SCH (08:00)
[2017-02-11] MEDS ORDERED: METRONIDAZOLE 500 MG/100 ML ISONTONIC SOLN IV SCH (08:00)
[2017-02-11] MEDS ORDERED: MIDAZOLAM HCL 5 MG/5 ML VIAL ONE (08:09)
[2017-02-11] MEDS ORDERED: fentaNYL CITRATE 250 MCG/5 ML AMP ONE ×2 (08:10→11:30)
[2017-02-11] MEDS: INSULIN DETEMIR 100 UNITS/ML VIAL SQ SCH ×2 (09:00→21:00)
--- NOTE | 2017-02-11 09:22 | PD.RAD ---
Post Procedure Progress Note Pre Procedure Diagnosis: (1) Post-menopausal bleeding (2) Vaginal bleeding (3) Uterine mass Post Procedure Diagnosis: (1) Uterine mass (2) Vaginal bleeding (3) Post-menopausal bleeding Procedure Date: Feb 11, 2017 Supervising Radiologist: Phil Villalta Estimated blood loss: none Plan of Activity Patient to Unit: ROPU Patient Condition: Fair Additional Comments: Pelvic angio completed. Uterine arteries are very small in size with No significant hyperemia in the uterus. No significant pelvic feeders to the uterus identified. Full dictated report to follow. See PACS Report for procedural detail/treatment Phil Villalta MD Feb 11, 2017 09:22
[2017-02-11] MEDS ORDERED: IODIXANOL 320 MG/ML 50 ML VIAL (for RAD SPEC) I-ARTERIAL ONE (09:24)
--- NOTE | 2017-02-11 09:47 | HHI.PR ---
Subjective Remarks Follow-up diabetes mellitus. Fingerstick 72 this morning improved to 82 one hour later. No hypoglycemic symptoms. Discussed with floor RN. Patient seen ROPU. Tolerated embolization. Patient states she continues to have vaginal bleeding denies abdominal pain, dizziness, chest pain and shortness of breath. Discussed with ROPU to repeat fingerstick and to start IV fluids as ordered Objective Vitals Vital Signs Date Time Temp Pulse Resp B/P Pulse Ox O2 Delivery O2 Flow Rate FiO2 02/11/17 04:00 98.0 82 20 106/61 96 02/11/17 00:00 97.6 94 20 116/61 97 02/10/17 20:00 97.0 97 18 123/63 99 02/10/17 15:50 96.5 94 20 109/55 100 02/10/17 11:30 97.2 115 20 110/70 96 I/O 02/10/17 02/10/17 02/10/17 02/11/17 02/11/17 02/11/17 07:00 15:00 23:00 07:00 15:00 23:00 Intake Total 480 ml 3740 ml 960 ml Output Total 1250 ml 400 ml 1200 ml 550 ml Balance -770 ml 3340 ml -240 ml -550 ml Intake Oral 480 ml 3740 ml 960 ml Output Urine Total 1250 ml 400 ml 1200 ml 550 ml # Bowel Movements 20 5 # Sanitary Pads 5 Pads 5 Pads Result Diagram: 02/10/17 0750 02/10/17 0750 Imaging Last Impressions Abdomen/Pelvis CT 02/05/17 1821 Signed Impressions: Service Date/Time: Sunday, February 05, 2017 19:51 - CONCLUSION: 1. Diffusely enlarged uterus 2. Scattered diverticulosis without inflammatory changes Jc Vega MD Chest CT 02/05/17 0000 Signed Impressions: Service Date/Time: Sunday, February 05, 2017 19:51 - CONCLUSION: 1. No acute intrathoracic disease. 2. No evidence of metastatic disease. Jc Vega MD Objective Remarks GENERAL: Obese female in no apparent distress. CARDIOVASCULAR: Normal rate and regular rhythm without murmurs, gallops, or rubs. RESPIRATORY: Good respiratory efforts. Breath sounds equal and clear to auscultation bilaterally. GASTROINTESTINAL: Abdomen soft, non-tender, non-distended. Normal active bowel sounds MUSCULOSKELETAL: Extremities without cyanosis, or edema. NEURO: Alert & Oriented x4 to person, place, time, situation. Moves all ext x4 PSYCH: Appropriate mood and affect. A/P Problem List: (1) Obesity ICD Code: E66.9 Status: Chronic (2) Post-menopausal bleeding ICD Code: N95.0 Status: Acute (3) Newly diagnosed diabetes ICD Code: E11.9 Status: Acute Assessment and Plan Hospitalist service following pleasant 56-year-old female with: Vaginal bleeding/uterine mass: Dr. Guerrier and Dr. Vaughn following. -Status post uterine artery embolization and 4 exploratory laparotomy with possible hysterectomy and other procedures based on pathology intraoperatively later today. - Follow H&H. 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 Anemia secondary to blood loss: H&H trending down. Will likely need transfusion with surgery. Surgical team following closely. Urinary retention: Probably related to above. Potts in place. Newly diagnosed diabetes: Hemoglobin A1c of 12.3 - Increase Levemir to 18 units BID. Med SSI with accuchecks. 1500-calorie diet. - software educator consulted. I discussed weight loss at length with the patient. - Thyroid functions ok. - She will need close outpatient follow up. Consider metformin Diverticulosis: Advise high-fiber diet. Obesity: Discussed weight loss and lifestyle modification at length with the patient. She seems motivated. Lipid profile OK except for low HDL. Physical activity can help raise HDL. Discharge Planning Per PI/SENIOR RESEARCH ASSOCIATE Cristhian Parker MD Feb 11, 2017 09:47
--- NOTE | 2017-02-11 11:09 | RADRPT ---
EXAM DATE/TIME: 02/11/2017 08:25 [place] COMPARISON: ANGIOGRAM,SELECT ADD VESSEL,RT, February 11, 2017, 0:00. INDICATIONS : Patient with uterine mass in need of pelvic angiogram. MEDICAL HISTORY : Diabetes SURGICAL HISTORY : Uterine biopsy ENCOUNTER: Initial ACUITY: > 1 year PAIN SCORE: 0/10 FLUORO TIME: 15.6 minutes IMAGE SERIES: 14 ACCESS SITE: Right Femoral artery SEDATION TIME: 75 minutes CONTRAST: 1.) 150 cc Visipaque (iodixanol) MEDICATION(S): 1.) 2.5 mg midazolam (Versed) IV 2.) 100 mcg fentanyl (Sublimaze) IV DEVICE(S): 1.) Right common femoral artery 6F Angio-Seal 2.) Right common femoral artery Syvek pad PROCEDURE : 1. Ultrasound-guided puncture of the access site. 2. Angiography of the access site prior to closure device. 3. Conscious sedation with continuous EKG and Oximetry monitoring. 4. Percutaneous closure of the access site. 5. Angiography of the left uterine artery 6. Angiography of the right uterine artery 7. angiography of the pelvis. The risks, benefits and alternatives to the procedure were explained and verbal and written consent w as obtained. The site was prepped in sterile fashion. Full sterile technique was used, including ca p, mask, sterile gloves and gown and a large sterile sheet. Hand hygiene and 2% chlorhexidine and/or betadine/alcohol prep was utilized per protocol for cutaneous antisepsis. The skin and subcutaneous tissues were infiltrated with local anesthetic solution. With ultrasound and fluoroscopic guidance the selected artery was punctured and a vascular sheath was placed. Angiography of the common femoral artery was performed for evaluation prior to percutaneous closure device placement. An Omni Flush catheter was advanced into the abdominal aorta. The catheter was advanced down into the left internal iliac circulation. Multiple angiographic runs were performed. The catheter was withdra wn. The right hypogastric circulation was selected. The Omni Flush catheter was exchanged for a [employer] e endhole glide catheter. Multiple angiographic runs of the hypogastric circulation on the right was performed. The single endhole glide catheter was removed in exchange for the Omni Flush catheter. A flush angiog stephen of the pelvis was performed. Results: The left uterine artery is quite small in size with only very minimal blood flow. The right uterine a rtery was identified as well. Again it is only very small in size with minimal blood flow. There is v austin minimal hyperemia evident which is possibly the region of the cervix but no significant neovascul arity is identified. No vessel large enough to perform embolization was evident. Hemostasis was obtained with the prescribed medicated closure device. Conscious sedation was perform ed with the prescribed dosages and duration as above in the presence of an independent trained radiol ogy nurse to assist in the monitoring of the patient. EKG and oximetry remained stable throughout th e procedure. CONCLUSION: 1. The uterine arteries are very small in size bilaterally. There is no significant neovascularity id entified. No significant feeding vessel for embolization was evident. Phil Villalta MD on February 11, 2017 at 11:04 Board Certified Radiologist. This report was verified electronically.
[2017-02-11] MEDS ORDERED: FAMOTIDINE 20 MG/2 ML VIAL ONE (11:30)
[2017-02-11] MEDS ORDERED: MIDAZOLAM HCL 2 MG/2 ML VIAL ONE (11:30)
[2017-02-11] MEDS ORDERED: ACETAMINOPHEN 1000 MG/100 ML VIAL IV ONE (11:30)
[2017-02-11] MEDS ORDERED: NEOSTIGMINE 3 MG/3 ML SYR IV ONE (12:00)
[2017-02-11] MEDS ORDERED: PROPOFOL 200 MG/20 ML AMP IV ONE (12:00)
[2017-02-11] MEDS ORDERED: ESTROGENS CONJUGATED VAG CREA 15 APPL/30 GM TUBE ONE (12:35)
[2017-02-11] MEDS ORDERED: DO NOT ADM ANY ANTICOAGULANT DRUGS XX PRN (13:18)
[2017-02-11] MEDS ORDERED: MORPHINE SULFATE 4 MG/ML INJ IV PRN (14:15)
[2017-02-11] MEDS ORDERED: NALOXONE HCL 0.4 MG/ML AMP IV PRN (14:15)
--- NOTE | 2017-02-11 19:39 | MB ---
cc: ASHLEY VALLE M.D., KELLY L. MD DAVID LONG DATE OF CONSULTATION 02/11/2017 DATE OF 1960 H NUMBER [id number] REASON FOR CONSULTATION A 56-year-old female presenting with a cervical cancer, causing Blood loss in a patient who is considered inoperable. BRIEF HISTORY This is a 56-year-old female who has avoided medical interaction. She broke her arm 7 years ago and that was the last time she saw a doctor. Sometime in October of last year she began to develop vaginal spotting and bleeding. This has progressed and in the past 2-3 weeks this has become heavy bleeding. She does report putting out many bags of mulch within the past couple of weeks so she has not had a physical exhaustion associated with this. She did come to medical attention chiefly because of bleeding and this was associated with back pain. It is noted that her sister is a casting finisher. Sister was present with my interview today. While in the hospital this lady has undergone a series of investigations including a biopsy of her cervix. The final pathology was extensively necrotic, malignant neoplasm of uncertain clinical type. No epithelial component was identified in the specimen. The differential diagnosis included that of carcinosarcoma, adenosarcoma or other endometrial sarcomatoid neoplasms. 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 This patient has had imaging performed while in the hospital. An abdominal pelvic CT scan revealed a uterus that is diffusely enlarged measuring 8.2 x 5.5 cm. There was no lymphadenopathy and there was scattered diverticulosis. His CT scan of the chest showed no evidence of intrathoracic metastatic disease. She had an attempted vascular occlusion today to reduce the risk of bleeding. And she was not felt to be a good candidate for a microsphere arterial occlusion. While in the hospital this lady has also been found to have an elevated blood sugar. Her blood sugars have been as high as 191 and 184. Her CA-125 was 21.9 and her TSH was 2.0. PAST MEDICAL AND SURGICAL HISTORY Is largely unremarkable. As previously mentioned she has not sought frequent medical attention. She has had no children. FAMILY HISTORY AND SOCIAL HISTORY She denies tobacco or alcohol use. Her mother had breast cancer and I believe a grandmother on her father's side had breast cancer. There is no other cancer in the family. ALLERGIES PENICILLIN. Hemoglobin on admission was 11.7 with a white count of 13.2 and a platelet count of 258,000. PHYSICAL EXAMINATION GENERAL: On exam she looks well. She is alert and oriented, no immediate distress. VITAL SIGNS: Her vital signs as documented in her chart reveal a pulse of 78 and regular, respiratory rate of 16, blood pressure of 127/62. Pulse oximetry of 100% on 2 liters of oxygen. HEENT: There was no jaundice or conjunctiva and eyelids are normal. She had full EOMs. Oral cavity was visibly normal. There is no adenopathy in her head and neck. LUNGS: Her lung caruso were clear without effusion. CARDIOVASCULAR: Her heart sounds were normal. ABDOMEN: There are no abdominal masses, tenderness hepatosplenomegaly. I was in the operating room today with Dr. Vaughn for an examination under anesthesia. She has a very large cervix on bimanual rectovaginal exam. There appears to be an extension into the parametria on the left extending close to the sidewall although it is not fixed. The right side was clinically normal. Her cervix was protruding into the vagina very close to the introitus. This bled heavily, it was very friable. Dr. Vaughn followed this with packing. I have discussed her care with Dr. Vaughn. Because of the extension into the left parametria, she is not considered a good candidate for surgery because of the risks of bleeding and of course she is bleeding heavily at presentation. We felt she would be best treated with a combination of radiation treatment and chemotherapy. We will be starting this on an urgent basis because of her heavy bleeding. I discussed all of this with the patient and her sister who as mentioned it is a casting finisher in [place]. We have discussed how radiation is delivered as well as potential acute side effects particularly discussing fatigue, genitourinary and GI tract symptoms. We have discussed the possible role of brachytherapy although we may re-explore the potential role of surgery after some pelvic radiation treatment. I did make them both aware that there is a long-term risk of fistulization from the rectum to vagina, vagina to bladder or rectum through bladder with high-dose radiation treatment. The risk of this is small but is not zero and the risk is difficult to quantitate. This lady and her sister indicated that they did want to proceed with treatment coordinated on urgent basis as we are planning. We will be planning the first several treatments with 3-D conformal approach, after which we will be switching to an IMRT / VMAT approach to minimize the exposure to bowel and rectum and other critical structures. MD UMESH Corea/KASSIDY /4:42 PM /7:09 PM
[2017-02-12] VITALS (13 sets, daily range): BP systolic 102–130; BP diastolic 49–75; PULSE 74–105; RESP 16–18; TEMP 97–98.8; O2SAT 92–100
[2017-02-12] MEDS: oxyCODONE/ACETAMINOPHEN 5 MG/325 MG TAB PO PRN ×2 (02:30→06:25)
--- NOTE | 2017-02-12 04:32 | HHI.PR ---
Subjective Remarks NOS pain controlled lying quietly with sister in room has questions and reviewed Objective Vital Signs Vital Signs Date Time Temp Pulse Resp B/P Pulse Ox O2 Delivery O2 Flow Rate FiO2 02/12/17 00:00 97.0 85 17 105/68 98 02/11/17 20:00 97.2 77 17 114/60 97 02/11/17 18:00 96.6 83 18 100/59 96 02/11/17 13:38 78 16 127/62 100 Nasal Cannula 2 02/11/17 13:15 76 16 131/59 100 Nasal Cannula 2 02/11/17 13:08 97.7 76 16 129/57 100 Nasal Cannula 2 02/11/17 11:15 79 159/94 100 02/11/17 10:45 70 122/73 100 02/11/17 10:15 80 118/67 100 02/11/17 10:00 75 113/70 99 02/11/17 09:45 70 18 95/62 97 02/11/17 09:30 98.0 83 18 100/65 92 02/11/17 08:00 98.5 84 18 97/54 93 I/O 02/11/17 02/11/17 02/11/17 02/12/17 02/12/17 02/12/17 07:00 15:00 23:00 07:00 15:00 23:00 Intake Total 1100 ml 480 ml Output Total 550 ml 525 ml 850 ml Balance -550 ml 575 ml -370 ml Intake Oral 480 ml Other 1100 ml Output Urine Total 550 ml 500 ml 850 ml Estimated Blood Loss 25 ml Bladder Scan Volume Amount 655 ml 655 ml # Sanitary Pads 0 Pads Result Diagram: 02/10/17 0750 02/10/17 0750 Objective Remarks Chest is clear, regular rate and rhythm. Abdomen is soft and non-distended. perineum--bleeding slightly through pack Ext no CCE. sequentials on urine in espinoza bag clear A/P Assessment and Plan NOS EUA and characterization of blood supply by IR indicate best course is radiation She has already been simulated today and will begin with Dr. Junior on Saturday Nona Guerrier MD Feb 12, 2017 04:32
[2017-02-12] MEDS: INSULIN ASPART SUPPLEMENTAL SCALE SQ SCH ×4 (05:22→21:34)
[2017-02-12 06:51] LABS: AUTOMATED NEUTROPHIL # 7.4 TH/MM3 (1.8-7.7); BASOPHIL % 0.3 % (0.0-2.0); EOSINOPHIL # 0.2 TH/MM3 (0-0.4); HEMATOCRIT 22.1 % (35.0-46.0); HEMO FLAGS DIFF FINAL; LYMPH % 15.3 % (9.0-44.0); LYMPHOCYTE # 1.5 TH/MM3 (1.0-4.8); MEAN CELL VOLUME 86.7 FL (80.0-100.0); MEAN CORPUSCULAR HEMOGLOBIN 30.8 PG (27.0-34.0); MEAN CORPUSCULAR HGB CONC 35.5 % (32.0-36.0); MONO % 7.3 % (0.0-8.0); NEUT % 75.1 % (16.0-70.0); PLATELET COUNT 229 TH/MM3 (150-450); RED BLOOD COUNT 2.55 MIL/MM3 (4.00-5.30); RED CELL DISTRIBUTION WIDTH 13.3 % (11.6-17.2); WHITE BLOOD COUNT 9.9 TH/MM3 (4.0-11.0)
[2017-02-12] MEDS ORDERED: POTASSIUM CHLOR 20 MEQ PREMIX 100 ML IV ONE (07:00)
[2017-02-12 07:35] LABS: BICARBONATE 28.3 MEQ/L (21.0-32.0); MAGNESIUM 2.1 MG/DL (1.5-2.5); POTASSIUM 4.4 MEQ/L (3.5-5.1)
--- NOTE | 2017-02-12 08:20 | HHI.PR ---
Subjective Remarks Follow-up vaginal bleeding. Seen with her sister. Discussed with RN. Events noted. Patient's pain is under control with Percocet and IV morphine as needed. Currently nothing by mouth for port placement Objective Vitals Vital Signs Date Time Temp Pulse Resp B/P Pulse Ox O2 Delivery O2 Flow Rate FiO2 02/12/17 04:00 97.8 82 17 102/55 96 02/12/17 00:00 97.0 85 17 105/68 98 02/11/17 20:00 97.2 77 17 114/60 97 02/11/17 18:00 96.6 83 18 100/59 96 02/11/17 13:38 78 16 127/62 100 Nasal Cannula 2 02/11/17 13:15 76 16 131/59 100 Nasal Cannula 2 02/11/17 13:08 97.7 76 16 129/57 100 Nasal Cannula 2 02/11/17 11:15 79 159/94 100 02/11/17 10:45 70 122/73 100 02/11/17 10:15 80 118/67 100 02/11/17 10:00 75 113/70 99 02/11/17 09:45 70 18 95/62 97 02/11/17 09:30 98.0 83 18 100/65 92 I/O 02/11/17 02/11/17 02/11/17 02/12/17 02/12/17 02/12/17 07:00 15:00 23:00 07:00 15:00 23:00 Intake Total 1100 ml 480 ml 720 ml Output Total 550 ml 525 ml 850 ml 775 ml Balance -550 ml 575 ml -370 ml -55 ml Intake Oral 480 ml 720 ml Other 1100 ml Output Urine Total 550 ml 500 ml 850 ml 775 ml Estimated Blood Loss 25 ml Bladder Scan Volume Amount 655 ml 655 ml # Sanitary Pads 0 Pads Result Diagram: 02/12/1762402/12/17624 Objective Remarks GENERAL: Obese female in no apparent distress. CARDIOVASCULAR: Normal rate and regular rhythm without murmurs, gallops, or rubs. RESPIRATORY: Good respiratory efforts. Breath sounds equal and clear to auscultation bilaterally. GASTROINTESTINAL: Abdomen soft, non-tender, non-distended. Normal active bowel sounds MUSCULOSKELETAL: Extremities without cyanosis, or edema. NEURO: Alert & Oriented x4 to person, place, time, situation. Moves all ext x4 nonfocal PSYCH: Appropriate mood and affect. A/P Problem List: (1) Obesity ICD Code: E66.9 Status: Chronic (2) Post-menopausal bleeding ICD Code: N95.0 Status: Acute (3) Newly diagnosed diabetes ICD Code: E11.9 Status: Acute Assessment and Plan Hospitalist service following pleasant 56-year-old female with: Vaginal bleeding/uterine mass: Dr. Guerrier and Dr. Vaughn following. -Status post IR evaluation no identifiable vessel for embolization . Unable to do hysterectomy secondary to tumor burden and risks of hemorrhage. Radiation oncology consulted and for port placement for chemotherapy - Follow H&H. Anemia secondary to blood loss: H&H trending down. Agree with blood transfusion secondary to ongoing bleeding Urinary retention: Probably related to above. Potts in place. Newly diagnosed diabetes: Hemoglobin A1c of 12.3 -Continue Levemir to 18 units BID. Med SSI with accuchecks. 1500-calorie diet. - grain blender consulted. I discussed weight loss at length with the patient. - Thyroid functions ok. - She will need close outpatient follow up. Consider metformin Diverticulosis: Advise high-fiber diet. Obesity: Discussed weight loss and lifestyle modification at length with the patient. She seems motivated. Lipid profile OK except for low HDL. Physical activity can help raise HDL. Discharge Planning Per LIFESTYLE DIRECTOR Cristhian Parker MD Feb 12, 2017 08:20 Cristhian Parker MD Feb 12, 2017 08:20
[2017-02-12] MEDS: INSULIN DETEMIR 100 UNITS/ML VIAL SQ SCH ×2 (08:30→21:26)
[2017-02-12] MEDS: NS + KCL 20 MEQ INJ 1,000 ML IV SCH ×2 (08:30→18:30)
--- NOTE | 2017-02-12 09:14 | MB ---
cc: MARIA L CREWS MD,ILAN CUI M.D., MD, PAMELA DATE OF CONSULTATION 02/12/2017 REASON FOR CONSULTATION RE, Discussion with Stephanie Weller. I met with Stephanie Nithin this morning reviewing the findings in her case to date. I explained the findings while on exam under anesthesia yesterday and as we had discussed prior to surgery, the reasons why we did not feel hysterectomy was the appropriate intervention. I explained that the tumor seems to have replaced a portion of the cervix with retraction of the cervix toward the upper left vaginal canal and infiltration into the tissue adjacent to the cervix (parametria) such that the tumor seems to have extended significantly beyond the uterus and cervix and hysterectomy would not be able to satisfactorily remove the tumor, but in all probability would result in hemorrhage in addition to leaving tumor still present. 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 I discussed again the difficult nature of sarcomas and the difficulty in getting sarcomas to respond to treatment especially when it is so locally and regionally advanced. Whereas there is no overt evidence of metastatic disease, it is a very significant problem with a large tumor burden and bleeding and risk of hemorrhage. I explained that a vaginal pack was placed and that explains the pressure she is feeling. Potts catheter is in place and Dr. Junior of radiation oncology was consulted during her case who performed an examined independently derived his findings as noted above and is graciously willing to expedite starting radiation treatment possibly with some hyper fractionated treatments in an effort to reduce bleeding. It is explained that the optimal treatment for sarcoma is yet to be defined. If it can be surgically resected, that is the primary objective, but for reasons as outlined, it was not amenable to surgical resection and for that reason, exploratory laparotomy was not performed. There may be value in using cisplatin chemotherapy while taking radiation. This is an extrapolation largely from squamous cell cancers of the cervix and other sites (such as head and neck tumors). Additionally at the completion of radiation, there may be some value in systemic chemotherapy with taxane and akutan or taxane and gemcitabine. Whether or not a hysterectomy would ever be recommended, would be based on response to treatment and extent of disease at the time, but the concerns about operating within a radiated field were also discussed in brief and whereas we wish to remain hopeful and aggressive as we will, I just spent time trying to clarify the challenging set of circumstances with which we are starting. Discussion ensued, questions were answered. She seems to understand as we have had similar discussions on prior occasions and she remains philosophically in line with treatment to do whatever is recommended. She understands the vaginal pack will stay in perhaps for the next two to three days as initial radiation treatments are given in an effort to initiate some hemostasis. Discussion ensued, questions were answered, she expressed a good understanding and is grateful for the care from all being provided. ADDENDUM It is noted that her hemoglobin this morning was 7.9, hematocrit is 2.1. She may benefit from transfusion with ongoing bleeding and the potential improved response for radiation treatment. We also discussed the potential value of a venous access port for facilitating delivery of chemotherapy to help protect the arm veins. She understands and agrees. MD BOUBACAR Vences/OUMAR /7:13 AM /8:54 AM
[2017-02-12] MEDS ORDERED: ACETAMINOPHEN 325 MG TAB PO SCH (09:15)
[2017-02-12] MEDS ORDERED: VANCOMYCIN INJ 1,000 MG in SODIUM CHLOR 0.9% 250 ML INJ 250 ML IV SCH (09:15)
[2017-02-12] MEDS ORDERED: diphenhydrAMINE HCL 25 MG CAP PO SCH (09:15)
[2017-02-12] MEDS ORDERED: FUROSEMIDE 20 MG/2 ML VIAL IV PUSH SCH (09:15)
[2017-02-12] MEDS ORDERED: MIDAZOLAM HCL 5 MG/5 ML VIAL ONE (11:18)
[2017-02-12] MEDS ORDERED: fentaNYL CITRATE 250 MCG/5 ML AMP ONE (11:18)
--- NOTE | 2017-02-12 11:38 | MP ---
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 COMMERCIAL MANAGER Smiley first beater general endotracheal anesthesia ESTIMATED BLOOD LOSS 250 cc. INTRAOPERATIVE CONSULTATION: Dr. Delvin Junior, radiation oncology HISTORY 70-year-old female who is admitted to the hospital last week after presenting with back pain and progressive postmenopausal bleeding. She was seen in the office of Dr. Long where a tumor was noted on speculum exam. The biopsy was obtained which eventually came back showing a sarcoma not otherwise specified. My attempts to obtain additional biopsy material and clarify the extent of disease on office exam were incomplete. The tissue was mostly necrosis, blood inflammatory changes and could not clearly delineate a perimeter, a rim of normal cervix at the vaginal apex and there was concern about infiltration especially on the left. She has been counseled regarding these findings and the need for further evaluation. She has been counseled and consented for possible hysterectomy as well as the possibility that all upon exam under anesthesia. We may determine that tumors extensive infiltrate even not best addressed with hysterectomy, such that radiation with possible chemotherapy may need to be considered. She has been seen and counseled while an inpatient and a seen again the preop holding area where these area with these issues are again discussed. Questions were answered. She expressed good understanding. 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 The tumor itself is very prominent and estimated to be probably at least 8 cm in width on the right side there is retraction, I cannot visibly or palpably determine normal cervix and there is fullness and seems to be infiltration fixation to the parametria that extends close to the pelvic sidewall. Dr. Delvin Junior of radiation oncology was consulted who performed an independent exam with essentially the same conclusions and findings. Consistent with an enlarged uterus that extends near the level of the umbilicus, markedly distended lower uterine segment cervix, tumor extending through and seemingly replacing the cervix, especially on the left with infiltration and the left parametria such that is not amendable to surgical resection. PROCEDURE The patient taken operating room placed in dorsal lithotomy position after general endotracheal anesthesia was administered time-out was undertaken. The patient was identified by sight recognition and hospital ID bracelet and the proposed procedure was reviewed and confirmed. An exam under anesthesia was performed with findings as described above. She was prepped in sterile fashion and a reexamined. Dr. Junior was consulted and he also performed exam under anesthesia with findings as described above. There is of fair amount of bleeding just from the preexisting bleeding from the tumor as well. His exam under anesthesia, it was determined that it was not proper to attempt surgical resection as the morbidity would clearly exceed benefit and so to assist in hemostasis. A 3 grams Binta powder was placed all across the face of the tumor in vaginal apex and then a Kerlix roll lubricated with Premarin was placed through the using the speculum and packing forceps all around the tumor overlying the tumor. A second Kerlix roll was tied to it end to end lubricated with Premarin cream and packed tightly into the vagina overlying the cervix and the surrounding tissue which was completely hemostatic with indwelling Potts catheter had already been placed. She was returned to dorsal supine position. Preliminary and final counts were correct. There was an intentionally left vaginal pack in the vagina with the distal end of the pack visible through the introitus. She was returned to dorsal supine position and pending reversal of anesthesia when I left the operating room to precede her to the Post Anesthesia Care Unit. I had the opportunity then to speak with family members and explained the findings and the reasons why we recommend radiation and why hysterectomy was not recommended, then I had the opportunity to again speak with Dr. Junior who graciously agreed to get started with urgent fractionated radiation. Initially to try to control bleeding and to a effect response with respect to control of tumor. MD BOUBACAR Vences/ariane /1:19 PM /11:27 AM
[2017-02-12] MEDS ORDERED: LIDOCAINE 1%/EPINEPHrine 1:100,000 SOLN 20 ML VIAL ONE ×2 (11:51→12:30)
[2017-02-12] MEDS ORDERED: ceFAZolin 2 GM PREMIX 50 ML ONE (12:25)
--- NOTE | 2017-02-12 13:50 | PD.RAD ---
Post Procedure Progress Note Pre Procedure Diagnosis: (1) Uterine mass Post Procedure Diagnosis: (1) Uterine mass Procedure Date: Feb 12, 2017 Supervising Radiologist: Harlan Mehta Proceduralist/Assist: RT Zhao(R)() Anesthesia: Local, Conscious Sedation Plan of Activity Patient to Unit: ROPU Patient Condition: Good See PACS Report for procedural detail/treatment Central Venous Access Device Procedure 1 Right Internal Jugular Infusaport Placement single lumen [place]: 8 Harlan Mehta MD Feb 12, 2017 13:50
[2017-02-12] MEDS ORDERED: SODIUM CHLORIDE 0.9% FLUSH 10 ML FLUSH IVF PRN (14:00)
[2017-02-12] MEDS: oxyCODONE/ACETAMINOPHEN 10 MG/325 MG TAB PO PRN (15:14)
--- NOTE | 2017-02-12 15:20 | RADRPT ---
EXAM DATE/TIME: 02/12/2017 10:18 [facility] COMPARISON: No previous studies available for comparison. INDICATIONS : Patient with uterine mass in need of [id number] placement for chemotherapy. MEDICAL HISTORY : Diabetes, Vaginal bleeding/uterine mass SURGICAL HISTORY : Uterine biopsy ENCOUNTER: Initial ACUITY: >1 year PAIN SCORE: 0/10 FLUORO TIME: 0.8 minutes IMAGE SERIES: 1 SEDATION TIME: 45 minutes ACCESS: Right internal jugular vein SEDATION: 1.) 2 mg midazolam (Versed) IV 2.) 100 mcg fentanyl (Sublimaze) IV Prophylactic antibiotics were administered with appropriate pre-procedure timing. Vancomycin within 2 hours of procedure, Ancef (or alternative) within 1 hour of procedure. DEVICE: 1. 8 [place] single lumen Bard Power Port PROCEDURE : 1. Continuous pulse oximetry and EKG monitoring. 2. Intravenous conscious sedation. 3. Ultrasound guidance for venous access. 4. Fluoroscopic guided implantable central venous port placement. The patient was placed supine. The neck was prepped in sterile fashion. Full sterile technique was u sed, including cap, mask, sterile gloves and gown, and a large sterile sheet. Hand hygiene and 2% ch lorhexidine Betadine was utilized per protocol for cutaneous antisepsis with appropriate dry time for site. The skin and subcutaneous tissues were infiltrated with local anesthetic solution. Under direct ultrasound guidance, central venous access was accomplished in the targeted vessel. The ultrasound images depicting access guidance were stored and saved to PACS for permanent record. A s ubcutaneous pocket was created using blunt dissection. The port was introduced to the pocket. The c atheter tubing was fed through a subcutaneous tunnel to the venotomy site. The catheter tubing was c ut to a suitable length and then was introduced through a valved Peel-Away sheath and positioned with catheter tubing tip at the cavo-atrial junction level. The pocket incision was closed with subcutic ular Vicryl suture. Steri-Strips were applied. The port was flushed and locked with heparin solutio n per protocol. Sterile dressing was applied to the site. The patient tolerated the procedure well. Conscious sedation was performed with the prescribed dosages and duration as above in the presence of an independent trained radiology nurse to assist in the monitoring of the patient. EKG and oximetry remained stable throughout the procedure. The patient tolerated the procedure well and there were no complications. The patient was sent to post anesthesia recovery in stable condition. CONCLUSION: Uncomplicated ultrasound and fluoroscopic guided implanted central venous port catheter placement as described in detail above. An 8 [place] Power port was placed. Harlan Mehta MD on February 12, 2017 at 15:18 Board Certified Radiologist. This report was verified electronically.
[2017-02-13] VITALS (8 sets, daily range): BP systolic 104–137; BP diastolic 60–78; PULSE 80–94; RESP 16–20; TEMP 96.8–99.8; O2SAT 94–100
[2017-02-13] MEDS: oxyCODONE/ACETAMINOPHEN 5 MG/325 MG TAB PO PRN ×3 (01:48→21:25)
[2017-02-13] MEDS: NS + KCL 20 MEQ INJ 1,000 ML IV SCH (04:30)
[2017-02-13] MEDS: INSULIN ASPART SUPPLEMENTAL SCALE SQ SCH ×4 (06:07→21:22)
[2017-02-13 07:33] LABS: AUTOMATED NEUTROPHIL # 7.8 TH/MM3 (1.8-7.7); BASOPHIL % 0.5 % (0.0-2.0); EOSINOPHIL # 0.3 TH/MM3 (0-0.4); EOSINOPHIL % 2.4 % (0.0-4.0); HEMATOCRIT 30.2 % (35.0-46.0); HEMO FLAGS DIFF FINAL; LYMPH % 14.7 % (9.0-44.0); LYMPHOCYTE # 1.5 TH/MM3 (1.0-4.8); MEAN CELL VOLUME 87.9 FL (80.0-100.0); MEAN CORPUSCULAR HEMOGLOBIN 28.9 PG (27.0-34.0); MEAN CORPUSCULAR HGB CONC 32.9 % (32.0-36.0); MONO % 7.5 % (0.0-8.0); NEUT % 74.9 % (16.0-70.0); PLATELET COUNT 254 TH/MM3 (150-450); RED BLOOD COUNT 3.44 MIL/MM3 (4.00-5.30); RED CELL DISTRIBUTION WIDTH 13.7 % (11.6-17.2); WHITE BLOOD COUNT 10.5 TH/MM3 (4.0-11.0)
[2017-02-13 08:16] LABS: BICARBONATE 27.6 MEQ/L (21.0-32.0); POTASSIUM 3.2 MEQ/L (3.5-5.1)
[2017-02-13] MEDS: INSULIN DETEMIR 100 UNITS/ML VIAL SQ SCH ×2 (08:26→21:27)
--- NOTE | 2017-02-13 08:51 | PD.ONC.PN ---
Subjective Subjective Remarks pt resting in bed no complaints at this time explained that we are planning on chemo teaching this afternoon and start Cisplatin tomorrow RN reports that packing came out overnight with a large clot pt is unsure how much vaginal bleeding she has had since packing fell out Objective Data Date Time Temp Pulse Resp B/P Pulse Ox O2 Delivery O2 Flow Rate FiO2 02/13/17 04:00 98.4 87 16 106/68 95 02/13/17 02:48 16 02/13/17 02:28 95 02/12/17 23:01 98.6 86 18 129/59 95 02/12/17 22:35 97.7 92 16 104/49 96 02/12/17 20:00 98.4 98 16 121/69 94 02/12/17 15:00 97.2 82 18 121/75 100 02/12/17 14:00 92 18 112/62 92 02/12/17 13:30 104 16 119/70 97 02/12/17 13:15 105 18 130/67 93 02/12/17 13:00 98.0 98 18 121/63 97 02/13/17 02/13/17 02/13/17 07:00 15:00 23:00 Intake Total 250 ml Output Total 600 ml Balance -350 ml Result Diagram: 02/13/1733 02/13/17 0633 Laboratory Results Laboratory Tests Test 02/13/17 06:33 White Blood Count 10.5 TH/MM3 Red Blood Count 3.44 MIL/MM3 Hemoglobin 9.9 GM/DL Hematocrit 30.2 % Mean Corpuscular Volume 87.9 FL Mean Corpuscular Hemoglobin 28.9 PG Mean Corpuscular Hemoglobin 32.9 % Concent Red Cell Distribution Width 13.7 % Platelet Count 254 TH/MM3 Mean Platelet Volume 9.3 FL Neutrophils (%) (Auto) 74.9 % Lymphocytes (%) (Auto) 14.7 % Monocytes (%) (Auto) 7.5 % Eosinophils (%) (Auto) 2.4 % Basophils (%) (Auto) 0.5 % Neutrophils # (Auto) 7.8 TH/MM3 Lymphocytes # (Auto) 1.5 TH/MM3 Monocytes # (Auto) 0.8 TH/MM3 Eosinophils # (Auto) 0.3 TH/MM3 Basophils # (Auto) 0.0 TH/MM3 CBC Comment DIFF FINAL Differential Comment Sodium Level 142 MEQ/L Potassium Level 3.2 MEQ/L Chloride Level 104 MEQ/L Carbon Dioxide Level 27.6 MEQ/L Anion Gap 10 MEQ/L Blood Urea Nitrogen 6 MG/DL Creatinine 0.59 MG/DL Estimat Glomerular Filtration 105 ML/MIN Rate Random Glucose 103 MG/DL Calcium Level 8.1 MG/DL Magnesium Level 2.0 MG/DL Administered Medications Medications (Trade) Dose Ordered Sig/Mack Route PRN Reason Start Time Stop Time Status Last Admin Dose Admin Oxycodone/ Acetaminophen (Percocet 5-325 Mg) 1 tab Q4H PRN PO PAIN 1-5 02/05/17 22:30 02/13/17 01:48 Magnesium Hydroxide (Milk Of Magnesia Liq) 30 ml DAILY PRN PO constipation 02/08/17 22:00 02/08/17 22:35 Bisacodyl (Dulcolax Supp) 10 mg DAILY PRN RECTAL CONSTIPATION 02/08/17 22:00 02/09/17 03:45 Insulin Detemir (Levemir Inj) 18 units BID SQ 02/10/17 09:00 02/13/17 08:26 Senna/Docusate Sodium (Crystal-Colace) 1 tab BID PRN PO CONSTIPATION 02/11/17 05:45 02/11/17 18:26 Oxycodone/ Acetaminophen (Percocet 10-325 Mg) 1 tab Q6H PRN PO PAIN SCALE 6 TO 10 02/11/17 14:15 02/12/17 15:14 Morphine Sulfate (Morphine Inj) 2 mg Q3H PRN IV BREAKTHROUGH PAIN 02/11/17 14:15 02/11/17 14:37 Objective Remarks GENERAL: Well-nourished, well-developed patient. SKIN: Warm and dry. HEAD: Normocephalic. EYES: No scleral icterus. No injection or drainage. WELLNESS SPECIALIST: aprox 50cc bright red blood on pad EXTREMITIES: teds and scds MUSCULOSKELETAL: Adequate muscle tone. NEUROLOGICAL: No obvious focal deficit. Awake, alert, and oriented x3. PSYCHIATRIC: Appropriate mood and affect; insight and judgment normal. Assessment/Plan Problem List: (1) Vaginal bleeding Status: Acute Plan: pt currently getting radiation to help with bleeding packing fell out overnight will continue to monitor vaginal bleeding and H/H (2) Uterine cancer, sarcoma Status: Acute Plan: radiation with Dr. Zeng weekly cisplatin IV chemo port has been placed chemo teaching this afternoon Gene Napier Feb 13, 2017 08:51
--- NOTE | 2017-02-13 09:52 | HHI.PR ---
Subjective Remarks F/U Acute Care Nurse Practitioner bleeding and DM. States packing came out not sure if she is still bleeding. FS stable. Dw RNchristine with Acute Care Nurse Practitioner re activity status Objective Vitals Vital Signs Date Time Temp Pulse Resp B/P Pulse Ox O2 Delivery O2 Flow Rate FiO2 02/13/17 08:00 98.8 83 18 104/60 94 02/13/17 04:00 98.4 87 16 106/68 95 02/13/17 02:48 16 02/13/17 02:28 95 02/12/17 23:01 98.6 86 18 129/59 95 02/12/17 22:35 97.7 92 16 104/49 96 02/12/17 20:00 98.4 98 16 121/69 94 02/12/17 15:00 97.2 82 18 121/75 100 02/12/17 14:00 92 18 112/62 92 02/12/17 13:30 104 16 119/70 97 02/12/17 13:15 105 18 130/67 93 02/12/17 13:00 98.0 98 18 121/63 97 I/O 02/12/17 02/12/17 02/12/17 02/13/17 02/13/17 02/13/17 07:00 15:00 23:00 07:00 15:00 23:00 Intake Total 720 ml 260 ml 250 ml Output Total 775 ml 500 ml 500 ml 1500 ml Balance -55 ml -500 ml -240 ml -1250 ml Intake Oral 720 ml 260 ml 250 ml Output Urine Total 775 ml 500 ml 500 ml 1500 ml Bladder Scan Volume Amount 655 ml # Bowel Movements 0 0 # Sanitary Pads 0 Pads 0 Pads Result Diagram: 02/13/1763202/13/17632 Objective Remarks GENERAL: Obese female in no apparent distress. CARDIOVASCULAR: Normal rate and regular rhythm without murmurs, gallops, or rubs. RESPIRATORY: Good respiratory efforts. Breath sounds equal and clear to auscultation bilaterally. GASTROINTESTINAL: Abdomen soft, non-tender, non-distended. Normal active bowel sounds MUSCULOSKELETAL: Extremities without cyanosis, or edema. NEURO: Alert & Oriented x4 to person, place, time, situation. Moves all ext x4 nonfocal PSYCH: Appropriate mood and affect. Procedures port placement A/P Problem List: (1) Obesity ICD Code: E66.9 Status: Chronic (2) Post-menopausal bleeding ICD Code: N95.0 Status: Acute (3) Newly diagnosed diabetes ICD Code: E11.9 Status: Acute Assessment and Plan Hospitalist service following pleasant 56-year-old female with: Vaginal bleeding/uterine mass: Dr. Guerrier and Dr. Vaughn following. -Status post IR evaluation no identifiable feeders for embolization . Unable to do hysterectomy secondary to tumor burden and risks of hemorrhage. Radiation oncology consulted for RT and s/p port placement for chemotherapy - Follow H&H. Anemia secondary to blood loss: H&H trending down. Improved s/p blood transfusion Monitor Newly diagnosed diabetes: Hemoglobin A1c of 12.3 -Continue Levemir to 18 units BID. Med SSI with accuchecks. 1500-calorie diet. - patient educator consulted. I discussed weight loss at length with the patient. - Thyroid functions ok. - She will need close outpatient follow up. Consider metformin Diverticulosis: Advise high-fiber diet. Obesity: Discussed weight loss and lifestyle modification at length with the patient. She seems motivated. Lipid profile OK except for low HDL. Physical activity can help raise HDL. Discharge Planning Per PERSONAL SERVICE REPRESENTATIVE Cristhian Parker MD Feb 13, 2017 09:52
[2017-02-13] MEDS ORDERED: POTASSIUM CHLORIDE 10 MEQ CONTROLLED RELEASE TAB PO ONE (10:00)
[2017-02-13] MEDS ORDERED: GADODIAMIDE PF 287 MG/ML 20 ML VIAL (for RAD MRI) IV ONE (11:47)
--- NOTE | 2017-02-13 14:05 | RADRPT ---
EXAM DATE/TIME: 02/13/2017 10:42 [facility] COMPARISON: CT ABDOMEN & PELVIS W CONTRAST, February 05, 2017, 19:51. INDICATIONS : Uterine sarcoma. CONTRAST: 20 cc Omniscan (gadodiamide) IV MEDICAL HISTORY : Diabetes mellitus type 2. SURGICAL HISTORY : Tonsillectomy. Broken arm. ENCOUNTER: Subsequent ACUITY: 4-6 days PAIN SCORE: 4/10 LOCATION: Pelvis TECHNIQUE: Multiplanar, multisequence magnetic resonance imaging of the pelvis was performed. FINDINGS: REPRODUCTIVE: The uterus measures approximately 8.1 x 4.2 x 3.5 cm. Endometrium measures 5 mm in thickness. There i s a high T1 and low T2 signal nonenhancing lesion in the right cervix measuring 18 mm. The cervix dem onstrates abnormal increased T2 signal and abnormal enhancement with irregular appearance. The vagina is very distended with intermediate T1 and mildly increased T2 signal with marked distention of the fornices extending near the uterine fundus. The area the ovaries are visualized bilaterally and these demonstrate a normal appearance. Left ovary measures approximately 2.5 x 1.5 cm the right ovary yadi ures approximately 2.1 x 1.8 cm. BLADDER: Urinary bladder is decompressed with a Potts catheter in place. There is mild hydronephrosis and hydr oureter bilaterally. RETROPERITONEUM: There is no lymphadenopathy. Vascular structures are within normal limits. BOWEL/MESENTERY: Visualized small and large bowel demonstrates no acute abnormality. There is no free fluid. INGUINAL: No lymphadenopathy or hernia. MUSCULOSKELETAL: Bone marrow signal is within normal limits. CONCLUSION: 1. Abnormal uterus and vagina. The vagina appears to be very distended and the fornices actually exte nd to near the fundus region of the uterus. This presumably is distended secondary to old blood produ cts given the signal intensity of the material present. This raises suspicion for vaginal stenosis di stally. 2. However, the endometrium is not thickened and measures approximately 5 mm. There is a hemorrhagic nabothian cyst in the right cervix. No uterine mass is identified but the cervix and has a diffusely abnormal appearance suspicious for neoplasm. 3. Urinary bladder is decompressed with a Potts catheter present but there is mild bilateral hydronep hrosis and hydroureter. Harlan Light MD on February 13, 2017 at 13:50 Board Certified Radiologist. This report was verified electronically.
[2017-02-13] MEDS ORDERED: MIDAZOLAM HCL 5 MG/5 ML VIAL ONE (18:20)
[2017-02-13] MEDS ORDERED: fentaNYL CITRATE 250 MCG/5 ML AMP ONE (18:20)
[2017-02-13] MEDS ORDERED: MIDAZOLAM HCL 2 MG/2 ML VIAL ONE (19:20)
--- NOTE | 2017-02-13 19:55 | PD.RAD ---
Post Procedure Progress Note Pre Procedure Diagnosis: (1) Vaginal bleeding (2) Uterine cancer, sarcoma Post Procedure Diagnosis: (1) Uterine cancer, sarcoma (2) Vaginal bleeding Procedure Date: Feb 13, 2017 Supervising Radiologist: Phil Villalta Estimated blood loss: 10cc Anesthesia: Local, Conscious Sedation Plan of Activity Patient to Unit: Other Patient Condition: Fair Additional Comments: Angio completed. finding similar to prior.No definate neovascularity identified. Right uterine artery embolized with 1-2cc of 3-500PVA. Left uterine never clearly identified. Multiple branches off the anterior division of both hypogastric arteries embolized in an attempt to stop patient bleeding. Full dictated report to follow See PACS Report for procedural detail/treatment Phil Villalta MD Feb 13, 2017 19:55
[2017-02-13] MEDS ORDERED: IODIXANOL 320 MG/ML 50 ML VIAL (for RAD SPEC) I-ARTERIAL ONE (20:08)
[2017-02-13] MEDS ORDERED: GELATIN 12 MM/7 MM FOAM I-ARTERIAL ONE (20:08)
[2017-02-13 21:55] LABS: HEMATOCRIT 28.6 % (35.0-46.0); MEAN CELL VOLUME 87.1 FL (80.0-100.0); MEAN CORPUSCULAR HEMOGLOBIN 29.3 PG (27.0-34.0); MEAN CORPUSCULAR HGB CONC 33.6 % (32.0-36.0); PLATELET COUNT 277 TH/MM3 (150-450); RED BLOOD COUNT 3.28 MIL/MM3 (4.00-5.30); RED CELL DISTRIBUTION WIDTH 13.8 % (11.6-17.2); REVIEW FLAG FINAL; WHITE BLOOD COUNT 9.2 TH/MM3 (4.0-11.0)
[2017-02-14] VITALS (7 sets, daily range): BP systolic 112–179; BP diastolic 69–86; PULSE 58–102; RESP 16–18; TEMP 95.9–98.7; O2SAT 93–96
[2017-02-14] MEDS: oxyCODONE/ACETAMINOPHEN 5 MG/325 MG TAB PO PRN ×3 (02:14→08:35)
[2017-02-14] MEDS: MAGNESIUM HYDROXIDE SUSP 30 ML CUP PO PRN (06:34)
[2017-02-14 07:42] LABS: AUTOMATED NEUTROPHIL # 7.6 TH/MM3 (1.8-7.7); BASOPHIL % 0.3 % (0.0-2.0); EOSINOPHIL # 0.3 TH/MM3 (0-0.4); EOSINOPHIL % 2.7 % (0.0-4.0); HEMATOCRIT 27.5 % (35.0-46.0); HEMO FLAGS DIFF FINAL; LYMPH % 11.4 % (9.0-44.0); LYMPHOCYTE # 1.1 TH/MM3 (1.0-4.8); MEAN CELL VOLUME 87.2 FL (80.0-100.0); MEAN CORPUSCULAR HEMOGLOBIN 28.8 PG (27.0-34.0); MONO % 5.4 % (0.0-8.0); NEUT % 80.2 % (16.0-70.0); PLATELET COUNT 260 TH/MM3 (150-450); RED BLOOD COUNT 3.16 MIL/MM3 (4.00-5.30); RED CELL DISTRIBUTION WIDTH 13.9 % (11.6-17.2); WHITE BLOOD COUNT 9.5 TH/MM3 (4.0-11.0)
[2017-02-14] MEDS: INSULIN ASPART SUPPLEMENTAL SCALE SQ SCH ×4 (07:44→20:31)
[2017-02-14 07:49] LABS: APTT (PATIENT) 26.6 SEC (24.3-30.1); PROTHROMBIN TIME - PATIENT 10.7 SEC (9.8-11.6)
--- NOTE | 2017-02-14 07:54 | PD.ONC.PN ---
Subjective Subjective Remarks pt states that bleeding has decreased since uterine artery embolization would like to get OOB to chair, Ok'd with Dr. Vaughn otherwise doing well no complaints Objective Data Date Time Temp Pulse Resp B/P Pulse Ox O2 Delivery O2 Flow Rate FiO2 02/14/17 04:00 97.6 89 18 121/72 94 02/14/17 03:14 18 02/14/17 00:00 97.3 90 16 112/69 94 02/13/17 21:27 18 02/13/17 21:00 97.1 94 18 133/68 100 02/13/17 20:45 97.7 75 14 123/70 99 Nasal Cannula 3 02/13/17 20:30 79 12 138/80 99 Nasal Cannula 3 02/13/17 20:12 97.9 90 15 126/80 94 Nasal Cannula 3 02/13/17 16:00 96.8 92 16 127/71 96 02/13/17 13:44 96 21 02/13/17 13:00 99.8 88 18 119/78 96 02/13/17 12:00 97.4 80 20 137/66 95 02/13/17 08:00 98.8 83 18 104/60 94 Result Diagram: 02/14/17 0625 02/13/17 0633 Laboratory Results Laboratory Tests Test 02/13/17 02/14/17 21:44 06:25 White Blood Count 9.2 TH/MM3 9.5 TH/MM3 Red Blood Count 3.28 MIL/MM3 3.16 MIL/MM3 Hemoglobin 9.6 GM/DL 9.1 GM/DL Hematocrit 28.6 % 27.5 % Mean Corpuscular Volume 87.1 FL 87.2 FL Mean Corpuscular Hemoglobin 29.3 PG 28.8 PG Mean Corpuscular Hemoglobin 33.6 % 33.0 % Concent Red Cell Distribution Width 13.8 % 13.9 % Platelet Count 277 TH/MM3 260 TH/MM3 Mean Platelet Volume 8.4 FL 8.6 FL Neutrophils (%) (Auto) 80.2 % Lymphocytes (%) (Auto) 11.4 % Monocytes (%) (Auto) 5.4 % Eosinophils (%) (Auto) 2.7 % Basophils (%) (Auto) 0.3 % Neutrophils # (Auto) 7.6 TH/MM3 Lymphocytes # (Auto) 1.1 TH/MM3 Monocytes # (Auto) 0.5 TH/MM3 Eosinophils # (Auto) 0.3 TH/MM3 Basophils # (Auto) 0.0 TH/MM3 CBC Comment DIFF FINAL Differential Comment Administered Medications Medications (Trade) Dose Ordered Sig/Mack Route PRN Reason Start Time Stop Time Status Last Admin Dose Admin Oxycodone/ Acetaminophen (Percocet 5-325 Mg) 1 tab Q4H PRN PO PAIN 1-5 02/05/17 22:30 02/14/17 02:14 Magnesium Hydroxide (Milk Of [place] Liq) 30 ml DAILY PRN PO constipation 02/08/17 22:00 02/14/17 06:34 Bisacodyl (Dulcolax Supp) 10 mg DAILY PRN RECTAL CONSTIPATION 02/08/17 22:00 02/09/17 03:45 Insulin Detemir (Levemir Inj) 18 units BID SQ 02/10/17 09:00 02/13/17 21:27 Senna/Docusate Sodium (Crystal-Colace) 1 tab BID PRN PO CONSTIPATION 02/11/17 05:45 02/11/17 18:26 Oxycodone/ Acetaminophen (Percocet 10-325 Mg) 1 tab Q6H PRN PO PAIN SCALE 6 TO 10 02/11/17 14:15 02/12/17 15:14 Morphine Sulfate (Morphine Inj) 2 mg Q3H PRN IV BREAKTHROUGH PAIN 02/11/17 14:15 02/11/17 14:37 Objective Remarks GENERAL: Well-nourished, well-developed patient. SKIN: Warm and dry. HEAD: Normocephalic. EYES: No scleral icterus. No injection or drainage. EXTREMITIES: TEDS and SCDs MUSCULOSKELETAL: Adequate muscle tone. NEUROLOGICAL: No obvious focal deficit. Awake, alert, and oriented x3. PSYCHIATRIC: Appropriate mood and affect; insight and judgment normal. Assessment/Plan Problem List: (1) Vaginal bleeding Status: Acute Plan: pt currently getting radiation to help with bleeding and s/p uterine artery embolization packing fell out will continue to monitor vaginal bleeding and H/H and transfuse if needed (2) Uterine cancer, sarcoma Status: Acute Plan: radiation with Dr. Zeng weekly cisplatin IV chemo pt to have first treatment today port placed chemo teaching completed OK to get OOB to chair and ambulate to bathroom Attending Statement Patient was seen this morning by both myself and Dr. Vaughn and he is in agreement with this plan. Gene Napier Feb 14, 2017 07:54
[2017-02-14 08:13] LABS: BICARBONATE 27.9 MEQ/L (21.0-32.0); MAGNESIUM 1.9 MG/DL (1.5-2.5); POTASSIUM 3.4 MEQ/L (3.5-5.1)
[2017-02-14] MEDS: INSULIN DETEMIR 100 UNITS/ML VIAL SQ SCH ×2 (08:24→20:32)
[2017-02-14] MEDS: BISACODYL 10 MG SUPP RECTAL PRN (08:25)
[2017-02-14] MEDS: oxyCODONE/ACETAMINOPHEN 10 MG/325 MG TAB PO PRN (08:31)
--- NOTE | 2017-02-14 10:10 | HHI.PR ---
Subjective Remarks Follow-up MANAGEMENT ADVISOR bleeding. Reports of decreasing vaginal bleeding. Also has constipation. She has been out of bed. Discussed with RN Objective Vitals Vital Signs Date Time Temp Pulse Resp B/P Pulse Ox O2 Delivery O2 Flow Rate FiO2 02/14/17 04:00 97.6 89 18 121/72 94 02/14/17 03:14 18 02/14/17 00:00 97.3 90 16 112/69 94 02/13/17 21:27 18 02/13/17 21:00 97.1 94 18 133/68 100 02/13/17 20:45 97.7 75 14 123/70 99 Nasal Cannula 3 02/13/17 20:30 79 12 138/80 99 Nasal Cannula 3 02/13/17 20:12 97.9 90 15 126/80 94 Nasal Cannula 3 02/13/17 16:00 96.8 92 16 127/71 96 02/13/17 13:44 96 21 02/13/17 13:00 99.8 88 18 119/78 96 02/13/17 12:00 97.4 80 20 137/66 95 I/O 02/13/17 02/13/17 02/13/17 02/14/17 02/14/17 02/14/17 07:00 15:00 23:00 07:00 15:00 23:00 Intake Total 250 ml 840 ml 250 ml 730 ml Output Total 1500 ml 750 ml 650 ml 650 ml Balance -1250 ml 90 ml -400 ml 80 ml Intake Oral 250 ml 840 ml 0 ml 730 ml Other 250 ml Output Urine Total 1500 ml 750 ml 650 ml 650 ml Bladder Scan Volume Amount 655 ml # Bowel Movements 0 # Sanitary Pads 0 Pads 1 Pads 0 Pads Result Diagram: 02/14/17 0625 02/14/17 0625 Imaging Last Impressions Pelvis MRI 02/13/17 0000 Signed Impressions: Service Date/Time: Monday, February 13, 2017 10:42 - CONCLUSION: 1. Abnormal uterus and vagina. The vagina appears to be very distended and the fornices actually extend to near the fundus region of the uterus. This presumably is distended secondary to old blood products given the signal intensity of the material present. This raises suspicion for vaginal stenosis distally. 2. However, the endometrium is not thickened and measures approximately 5 mm. There is a hemorrhagic nabothian cyst in the right cervix. No uterine mass is identified but the cervix and has a diffusely abnormal appearance suspicious for neoplasm. 3. Urinary bladder is decompressed with a Potts catheter present but there is mild bilateral hydronephrosis and hydroureter. Harlan Light MD Port Line Insertion 02/12/17 0000 Signed Impressions: Service Date/Time: Sunday, February 12, 2017 10:18 - CONCLUSION: Uncomplicated ultrasound and fluoroscopic guided implanted central venous port catheter placement as described in detail above. An 8 Sinhala Power port was placed. Harlan Mehta MD Angiography 02/11/17 0000 Signed Impressions: Service Date/Time: Saturday, February 11, 2017 08:25 - CONCLUSION: 1. The uterine arteries are very small in size bilaterally. There is no significant neovascularity identified. No significant feeding vessel for embolization was evident. Phil Villalta MD Abdomen/Pelvis CT 02/05/17 1821 Signed Impressions: Service Date/Time: Sunday, February 05, 2017 19:51 - CONCLUSION: 1. Diffusely enlarged uterus 2. Scattered diverticulosis without inflammatory changes Jc Vega MD Chest CT 02/05/17 0000 Signed Impressions: Service Date/Time: Sunday, February 05, 2017 19:51 - CONCLUSION: 1. No acute intrathoracic disease. 2. No evidence of metastatic disease. Jc Vega MD Objective Remarks GENERAL: Obese female in no apparent distress. CARDIOVASCULAR: Normal rate and regular rhythm without murmurs, gallops, or rubs. RESPIRATORY: Good respiratory efforts. Breath sounds equal and clear to auscultation bilaterally. GASTROINTESTINAL: Abdomen soft, non-tender, non-distended. Normal active bowel sounds MUSCULOSKELETAL: Extremities without cyanosis, or edema. NEURO: Alert & Oriented x4 to person, place, time, situation. Moves all ext x4 nonfocal PSYCH: Appropriate mood and affect. Procedures port placement Embolization A/P Problem List: (1) Obesity ICD Code: E66.9 Status: Chronic (2) Post-menopausal bleeding ICD Code: N95.0 Status: Acute (3) Newly diagnosed diabetes ICD Code: E11.9 Status: Acute Assessment and Plan Hospitalist service following pleasant 56-year-old female with: Vaginal bleeding/uterine mass: Dr. Guerrier and Dr. Molpus following. -Status post IR embolization of right uterine and conjunctivae were the vision of thoracic arteries. Unable to do hysterectomy secondary to tumor burden and risks of hemorrhage. Radiation oncology consulted for RT and s/p port placement for chemotherapy with cisplatin to start today - Follow H&H. Anemia secondary to blood loss: H&H trending down. Improved s/p blood transfusion Monitor Newly diagnosed diabetes: Hemoglobin A1c of 12.3 -Continue Levemir to 18 units BID. Med SSI with accuchecks. 1500-calorie diet. - extension educator consulted. I discussed weight loss at length with the patient. - Thyroid functions ok. - She will need close outpatient follow up. Consider metformin Diverticulosis: Advise high-fiber diet. Avoid constipation start Crystal-Colace Obesity: Discussed weight loss and lifestyle modification at length with the patient. She seems motivated. Lipid profile OK except for low HDL. Physical activity can help raise HDL. Discharge Planning Per MANAGEMENT ADVISOR Cristhian Parker MD Feb 14, 2017 10:10
[2017-02-14] MEDS ORDERED: POTASSIUM CHLORIDE 10 MEQ CONTROLLED RELEASE TAB PO ONE (11:30)
--- NOTE | 2017-02-14 13:59 | PD.CONS ---
HPI Chief Complaint After her EUA and packing, Stephanie's pack came out despite minimal movement. Was bleeding with clots and sent to IR with Dr. Jonathan Villalta last night who embolized everything greater than 1 mm that was identifiable. Well tolerated. Stable this am but needed to have a bowel movement. She is now picked up in her bleeding. and frightened. Discussed with Dr. Fink who agrees with trial of amakar. Will start today and transfuse if needed. She remains in good spirits. Urine is clear -- no bleeding from other sources. No hx thrombophilia. Travel History International Travel<30 Days: No Contact w/Intl Traveler<30Days: No Known Affected Area: No History of Present Illness HPI Quite 24 hours. Bleeding (more a serosanguanous fluid) same to slightly increased. Has moved bowels but will begin prep in am saturday has begun to experience urinary retention and espinoza placed with clear urine noted pain managed spirits good. Allergies-Medications (Allergen,Severity, Reaction): Coded Allergies: Penicillin (Verified Allergy, Severe, 02/05/17) Home Meds No Active Prescriptions or Reported Meds Physical Exam Vital Signs Date Time Temp Pulse Resp B/P Pulse Ox O2 Delivery O2 Flow Rate FiO2 02/14/17 11:28 93 02/14/17 09:00 95.9 58 179/84 93 02/14/17 04:00 97.6 89 18 121/72 94 02/14/17 03:14 18 02/14/17 00:00 97.3 90 16 112/69 94 02/13/17 21:27 18 02/13/17 21:00 97.1 94 18 133/68 100 02/13/17 20:45 97.7 75 14 123/70 99 Nasal Cannula 3 02/13/17 20:30 79 12 138/80 99 Nasal Cannula 3 02/13/17 20:12 97.9 90 15 126/80 94 Nasal Cannula 3 02/13/17 16:00 96.8 92 16 127/71 96 Narrative GENERAL: Well-nourished, well-developed patient. SKIN: Warm and dry. HEAD: Normocephalic and atraumatic. EYES: No scleral icterus. No injection or drainage. ENT: No nasal drainage noted. Mucous membranes pink. Airway patent. NECK: Supple, trachea midline. No JVD. CARDIOVASCULAR: Regular rate and rhythm without murmurs, gallops, or rubs. RESPIRATORY: Breath sounds equal bilaterally. No accessory muscle use. BREASTS: Bilateral exam showed no masses , no retractions, no nipple discharge. ABDOMEN/GI: Abdomen soft, non-tender, bowel sounds present, no rebound, no guarding Gravid to [-] weeks size Fundal Height: [-] GENITOURINARY: External Genitalia: intact and normal in appearance BUS glands: [-] Cervix: [-] Dilatation: [-] Effacement: [-] Station: [-] Presentation: [-] Membranes: [intact or ruptured] Uterine Contractions: [-] FHT's: Category: [-] Baseline: [-] Reactive: [-] Variability: [-] Decels: [-] EXTREMITIES: No cyanosis or edema. BACK: Nontender without obvious deformity. No CVA tenderness. NEUROLOGICAL: Awake and alert. Motor and sensory grossly within normal limits. Five out of 5 muscle strength in all muscle groups. Normal speech. Data Data Orders Cbc No Diff, Includes Plts (02/13/17 16:23) ^ Other Nursing Orders (02/13/17 17:06) Act Partial Throm Time (Ptt) (02/14/17 06:00) Prothrombin Time / Inr (Pt) (02/14/17 06:00) Midazolam Inj (Versed Inj) (02/13/17 18:20) Fentanyl Inj (Fentanyl Inj) (02/13/17 18:20) Fentanyl Inj (Fentanyl Inj) (02/13/17 19:20) Midazolam Inj (Versed Inj) (02/13/17 19:20) Vital Signs (Adult) Q15MX4,Q30MX4,Q1HX4 (02/13/17 19:50) ^ Notify Dr. Parameters (02/13/17 19:50) ^ Apply Pressure (02/13/17 19:50) ^ Dressings (02/13/17 19:50) Activity Bed Rest (02/13/17 19:50) Remove Urinary Catheter .ONCE (02/13/17 19:50) Gelatin 12 Mm/7 Mm Top (Gelfoam 12 Mm/7 (02/13/17 20:08) Iodixanol 320 Inj (Visipaque 320 Inj) (02/13/17 20:08) Angiogram, Pelvic (02/13/17 ) Us Guided Vascular Access (02/13/17 ) Transcath Iv Occlusion (02/13/17 ) Angiogram, Pelvic, Selective (02/13/17 ) Angiogram, Pelvic, Selective (02/13/17 ) Transcath Iv Occlusion (02/13/17 ) Transcath Iv Occlusion (02/13/17 ) F/U Thru Existing Cath (02/13/17 ) F/U Thru Existing Cath (02/13/17 ) F/U Thru Existing Cath (02/13/17 ) Class Iv Pacu Ea 30 Min (02/13/17 ) Post Anesthesia Oxygen (02/13/17 ) Potassium Chloride (Kcl) (02/14/17 11:30) Docusate Sodium-Senna (Crystal-Colace) (02/14/17 21:00) Basic Metabolic Panel (Bmp) (02/15/17 06:00) Complete Blood Count With Diff (02/15/17 06:00) Magnesium (Mg) (02/15/17 06:00) Cisplatin Inj (Platinol Inj) (02/14/17 16:00) Mannitol Inj (Mannitol Inj) (02/14/17 15:00) Dexamethasone Inj (Decadron Inj) (02/14/17 15:00) Granisetron Inj (Kytril Inj) (02/14/17 15:00) Potassium Chloride Inj (Kcl Inj)... (02/14/17 15:00) Potassium Chloride Inj (Kcl Inj)... (02/14/17 17:00) Cbc No Diff, Includes Plts (02/14/17 16:00) Aminocaproic Acid Inj (Amicar Inj) (02/14/17 14:00) Consult Medical Oncology (02/14/17 ) Labs Laboratory Tests Test 02/13/17 02/14/17 21:44 06:25 White Blood Count 9.2 9.5 Red Blood Count 3.28 3.16 Hemoglobin 9.6 9.1 Hematocrit 28.6 27.5 Mean Corpuscular Volume 87.1 87.2 Mean Corpuscular Hemoglobin 29.3 28.8 Mean Corpuscular Hemoglobin 33.6 33.0 Concent Red Cell Distribution Width 13.8 13.9 Platelet Count 277 260 Mean Platelet Volume 8.4 8.6 Neutrophils (%) (Auto) 80.2 Lymphocytes (%) (Auto) 11.4 Monocytes (%) (Auto) 5.4 Eosinophils (%) (Auto) 2.7 Basophils (%) (Auto) 0.3 Neutrophils # (Auto) 7.6 Lymphocytes # (Auto) 1.1 Monocytes # (Auto) 0.5 Eosinophils # (Auto) 0.3 Basophils # (Auto) 0.0 CBC Comment DIFF FINAL Differential Comment Prothrombin Time 10.7 Prothromb Time International 1.0 Ratio Activated Partial 26.6 Thromboplast Time Sodium Level 142 Potassium Level 3.4 Chloride Level 104 Carbon Dioxide Level 27.9 Anion Gap 10 Blood Urea Nitrogen 5 Creatinine 0.45 Estimat Glomerular Filtration 143 Rate Random Glucose 119 Calcium Level 8.7 Magnesium Level 1.9 MDM Admitting diagnosis: vag bleeding, tumor. Scripts No Active Prescriptions or Reported Meds Nona Guerrier MD Feb 14, 2017 13:59
[2017-02-14] MEDS ORDERED: AMINOCAPROIC ACID INJ 5,000 MG in SODIUM CHLOR 0.9% 250 ML INJ 230 ML IV ONE (14:00)
[2017-02-14] MEDS ORDERED: GRANISETRON HCL 1 MG/ML VIAL IV SCH (15:00)
[2017-02-14] MEDS ORDERED: MANNITOL 12.5 GM/50 ML VIAL IV SCH (15:00)
[2017-02-14] MEDS ORDERED: DEXAMETHASONE INJ 20 MG in SODIUM CHLORIDE 0.9% INJ 50 ML IV SCH (15:00)
[2017-02-14] MEDS ORDERED: SODIUM CHLOR 0.9% IV SCH (16:00)
[2017-02-14] MEDS ORDERED: CISPLATIN IV SCH (16:00)
--- NOTE | 2017-02-14 16:50 | RADRPT ---
EXAM DATE/TIME: 02/13/2017 17:52 [facility] COMPARISON: ANGIOGRAM, PELVIC, SELECTIVE, RT, February 13, 2017, 0:00. INDICATIONS : Patient with a history of uterine mass, vaginal bleeding. MEDICAL HISTORY : Diabetes, Vaginal bleeding/uterine mass SURGICAL HISTORY : Uterine biopsy ENCOUNTER: Initial ACUITY: 1 day PAIN SCORE: 3/10 LOCATION: abdomen FLUORO TIME: 26.8 minutes IMAGE SERIES: 30 ACCESS SITE: Right Femoral artery SEDATION TIME: 60 minutes CONTRAST: 1.) 150 cc Visipaque (iodixanol) MEDICATION(S): 1.) 5 mg midazolam (Versed) IV 2.) 250 mcg fentanyl (Sublimaze) IV DEVICE(S): 1.) Bilateral internal iliac artery 355-500 PVA 2.) Bilateral internal iliac artery Gelfoam 3.) Right common femoral artery 6FR Angio-Seal PROCEDURE : 1. Ultrasound-guided puncture of the access site. 2. Angiography of the access site prior to closure device. 3. Conscious sedation with continuous EKG and Oximetry monitoring. 4. Percutaneous closure of the access site. 5. Angiography of the right internal iliac circulation 6. Angiography of the left internal iliac circulation 7. Embolization of the hypogastric circulation bilaterally. 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 The patient underwent an initial ang iogram in preparation for hysterectomy. The initial angiogram documented only limited blood flow to t he uterus. The uterine arteries were very small in size. The decision was made at that time not to pr oceed with embolization as blood loss a hysterectomy should not be significant. The patient was found on clinical exam to have sarcoma which are dated the uterus and hysterectomy was not an option. The patient continued to slowly bleed in spite of radiation therapy. The risks, benefits and alternatives to the procedure were explained and verbal and written consent w as obtained. The site was prepped in sterile fashion. Full sterile technique was used, including ca p, mask, sterile gloves and gown and a large sterile sheet. Hand hygiene and 2% chlorhexidine and/or betadine/alcohol prep was utilized per protocol for cutaneous antisepsis. The skin and subcutaneous tissues were infiltrated with local anesthetic solution. With ultrasound and fluoroscopic guidance the selected artery was punctured and a vascular sheath was placed. Angiography of the common femoral artery was performed for evaluation prior to percutaneous closure device placement.A 0.035 angled Glidewire and Omni Flush catheter were advanced into the hyp ogastric circulation on the left. The anterior division was easily identified. Multiple angiographic runs were performed. These demonstrated an area of hyperemic blood flow in the region of the cervix. A microcatheter was advanced down into the distal arterial branches. Embolization with Gelfoam was pe rformed. The catheter was pulled back and several other angiographic runs were performed. Several sma ll branches of the anterior division of the hypogastric circulation were embolized with a microcathet er. In addition, several larger branches of the hypogastric circulation were pruned with Gelfoam inje ction. The cobra glide catheter was removed. The hypogastric circulation on the right was selected. A small right uterine artery was identified. This was cannulated with a microcatheter and embolized with a sm all volume of PVA. This was embolized to occlusion and back with Gelfoam. The microcatheter was remov ed. Again several small branches of the anterior division of the hypogastric circulation were mildly embolized with Gelfoam. Hemostasis was obtained with the prescribed medicated closure device. Conscious sedation was perform ed with the prescribed dosages and duration as above in the presence of an independent trained radiol ogy nurse to assist in the monitoring of the patient. EKG and oximetry remained stable throughout th e procedure. CONCLUSION: 1. Uncomplicated, partial embolization of the anterior division of both internal iliac arteries. 2. Uncomplicated catheter directed embolization of the right uterine artery. Phil Villalta MD on February 14, 2017 at 16:41 Board Certified Radiologist. This report was verified electronically.
[2017-02-14] MEDS ORDERED: POTASSIUM CHLORIDE IV SCH (17:00)
[2017-02-14] MEDS ORDERED: [UNRECOGNIZED DRUG - OTHER] IV SCH (17:00)
[2017-02-14] MEDS ORDERED: MAGNESIUM SULFATE IV SCH (17:00)
[2017-02-14 17:02] LABS: HEMATOCRIT 25.6 % (35.0-46.0); MEAN CELL VOLUME 86.4 FL (80.0-100.0); MEAN CORPUSCULAR HEMOGLOBIN 29.3 PG (27.0-34.0); MEAN CORPUSCULAR HGB CONC 33.9 % (32.0-36.0); PLATELET COUNT 265 TH/MM3 (150-450); RED BLOOD COUNT 2.97 MIL/MM3 (4.00-5.30); RED CELL DISTRIBUTION WIDTH 13.7 % (11.6-17.2); REVIEW FLAG FINAL; WHITE BLOOD COUNT 12.8 TH/MM3 (4.0-11.0)
[2017-02-14] MEDS: POTASSIUM CHLORIDE IV SCH ×2 (17:30→17:50)
[2017-02-14] MEDS: MAGNESIUM SULFATE IV SCH ×2 (17:30→17:50)
[2017-02-14] MEDS: [UNRECOGNIZED DRUG - OTHER] IV SCH ×2 (17:30→17:50)
[2017-02-14] MEDS: DOCUSATE SODIUM 50 MG/SENNA 8.6 MG TAB PO SCH (20:32)
[2017-02-15] VITALS (7 sets, daily range): BP systolic 93–117; BP diastolic 59–78; PULSE 74–89; RESP 16–20; TEMP 96.1–98.3; O2SAT 93–98
[2017-02-15 05:46] LABS: AUTOMATED NEUTROPHIL # 11.1 TH/MM3 (1.8-7.7); HEMATOCRIT 25.3 % (35.0-46.0); HEMO FLAGS DIFF FINAL; LYMPHOCYTE # 0.3 TH/MM3 (1.0-4.8); MEAN CELL VOLUME 87.5 FL (80.0-100.0); MEAN CORPUSCULAR HEMOGLOBIN 29.7 PG (27.0-34.0); MONO % 1.2 % (0.0-8.0); NEUT % 95.8 % (16.0-70.0); PLATELET COUNT 269 TH/MM3 (150-450); RED CELL DISTRIBUTION WIDTH 13.7 % (11.6-17.2); WHITE BLOOD COUNT 11.5 TH/MM3 (4.0-11.0)
[2017-02-15 06:13] LABS: BICARBONATE 24.9 MEQ/L (21.0-32.0); MAGNESIUM 2.2 MG/DL (1.5-2.5); POTASSIUM 4.2 MEQ/L (3.5-5.1)
[2017-02-15] MEDS: INSULIN ASPART SUPPLEMENTAL SCALE SQ SCH ×4 (06:44→21:08)
[2017-02-15] MEDS: INSULIN DETEMIR 100 UNITS/ML VIAL SQ SCH ×2 (08:49→21:08)
[2017-02-15] MEDS: DOCUSATE SODIUM 50 MG/SENNA 8.6 MG TAB PO SCH ×2 (08:49→21:00)
[2017-02-15] MEDS ORDERED: diphenhydrAMINE HCL 25 MG CAP PO PRN ×3 (09:45→20:15)
[2017-02-15] MEDS ORDERED: SODIUM CHLOR 0.9% 250 ML INJ 250 ML IV ONE (09:45)
[2017-02-15] MEDS ORDERED: ACETAMINOPHEN 325 MG TAB PO PRN ×2 (09:45→20:15)
--- NOTE | 2017-02-15 09:50 | PD.CONS ---
HPI Chief Complaint carcinosarcoma of the uterus (working diagnosis) bleeding and receiving radiation, post embolization, chemo sensitization and amikar today bleeding is heavy she remains in good spirits on way to radiation will be transfused 2 units and amicar continued MRI revealed mild bilateral hydronephrosis Date Seen: Feb 15, 2017 Travel History International Travel<30 Days: No Contact w/Intl Traveler<30Days: No Known Affected Area: No History of Present Illness HPI Quite 24 hours. Bleeding (more a serosanguanous fluid) same to slightly increased. Has moved bowels but will begin prep in am saturday has begun to experience urinary retention and espinoza placed with clear urine noted pain managed spirits good. Allergies-Medications (Allergen,Severity, Reaction): Coded Allergies: Penicillin (Verified Allergy, Severe, 02/05/17) Home Meds No Active Prescriptions or Reported Meds Physical Exam Vital Signs Date Time Temp Pulse Resp B/P Pulse Ox O2 Delivery O2 Flow Rate FiO2 02/15/17 08:00 97.4 82 19 108/78 95 02/15/17 04:09 96.1 74 16 117/73 95 02/15/17 00:00 97.1 83 16 114/70 93 02/14/17 20:00 98.7 76 16 119/86 96 02/14/17 17:32 95 21 02/14/17 14:45 98.2 102 18 140/79 95 02/14/17 11:28 93 Narrative GENERAL: Well-nourished, well-developed patient. SKIN: Warm and dry. HEAD: Normocephalic and atraumatic. EYES: No scleral icterus. No injection or drainage. ENT: No nasal drainage noted. Mucous membranes pink. Airway patent. NECK: Supple, trachea midline. No JVD. CARDIOVASCULAR: Regular rate and rhythm without murmurs, gallops, or rubs. RESPIRATORY: Breath sounds equal bilaterally. No accessory muscle use. BREASTS: Bilateral exam showed no masses , no retractions, no nipple discharge. ABDOMEN/GI: Abdomen soft, non-tender, bowel sounds present, no rebound, no guarding bleeding is moderate EXTREMITIES: No cyanosis or edema. BACK: Nontender without obvious deformity. No CVA tenderness. NEUROLOGICAL: Awake and alert. Motor and sensory grossly within normal limits. Five out of 5 muscle strength in all muscle groups. Normal speech. Data Data Orders Potassium Chloride (Kcl) (02/14/17 11:30) Docusate Sodium-Senna (Crystal-Colace) (02/14/17 21:00) Basic Metabolic Panel (Bmp) (02/15/17 06:00) Complete Blood Count With Diff (02/15/17 06:00) Magnesium (Mg) (02/15/17 06:00) Cisplatin Inj (Platinol Inj) (02/14/17 16:00) Mannitol Inj (Mannitol Inj) (02/14/17 15:00) Dexamethasone Inj (Decadron Inj) (02/14/17 15:00) Granisetron Inj (Kytril Inj) (02/14/17 15:00) Potassium Chloride Inj (Kcl Inj)... (02/14/17 15:00) Potassium Chloride Inj (Kcl Inj)... (02/14/17 17:00) Cbc No Diff, Includes Plts (02/14/17 16:00) Aminocaproic Acid Inj (Amicar Inj) (02/14/17 14:00) Consult Medical Oncology (02/14/17 ) (Hub Use Only)Inp Phy Cons/Ref (02/14/17 ) (Hub Use Only)In Phy Cons/Ref (02/14/17 ) Red Blood Cells (Rbc) (02/15/17 07:30) ^ Other Nursing Orders (02/15/17 07:30) Type And Screen (02/15/17 07:30) Aminocaproic Acid (Amicar) (02/15/17 12:00) Red Blood Cells (Rbc) (02/15/17 09:44) Blood Product Administration .UPON TRANSFUSION (02/15/17 09:44) Sodium Chlor 0.9% 250 Ml Inj (Ns 250 Ml (02/15/17 09:45) Acetaminophen (Tylenol) (02/15/17 09:45) Diphenhydramine (Benadryl) (02/15/17 09:45) Labs Laboratory Tests Test 02/14/17 02/15/17 02/15/17 16:14 05:25 08:54 White Blood Count 12.8 11.5 Red Blood Count 2.97 2.90 Hemoglobin 8.7 8.6 Hematocrit 25.6 25.3 Mean Corpuscular Volume 86.4 87.5 Mean Corpuscular Hemoglobin 29.3 29.7 Mean Corpuscular Hemoglobin 33.9 34.0 Concent Red Cell Distribution Width 13.7 13.7 Platelet Count 265 269 Mean Platelet Volume 8.8 8.6 Neutrophils (%) (Auto) 95.8 Lymphocytes (%) (Auto) 3.0 Monocytes (%) (Auto) 1.2 Eosinophils (%) (Auto) 0.0 Basophils (%) (Auto) 0.0 Neutrophils # (Auto) 11.1 Lymphocytes # (Auto) 0.3 Monocytes # (Auto) 0.1 Eosinophils # (Auto) 0.0 Basophils # (Auto) 0.0 CBC Comment DIFF FINAL Differential Comment Sodium Level 139 Potassium Level 4.2 Chloride Level 105 Carbon Dioxide Level 24.9 Anion Gap 9 Blood Urea Nitrogen 8 Creatinine 0.46 Estimat Glomerular Filtration 140 Rate Random Glucose 184 Calcium Level 8.0 Magnesium Level 2.2 Blood Type O POSITIVE MDM Plan as per consultants will check on final path and lymphoma stains today Admitting diagnosis: vag bleeding, tumor. Scripts No Active Prescriptions or Reported Meds Nona Guerrier MD Feb 15, 2017 09:50
[2017-02-15] MEDS: AMINOCAPROIC ACID 500 MG TAB PO SCH ×2 (13:11→19:14)
--- NOTE | 2017-02-15 15:29 | HHI.PR ---
Subjective Remarks Patient reports that she is feeling well today. Having some issues with constipation today. Still having vaginal bleeding. States that about the same as yesterday. Objective Vitals Vital Signs Date Time Temp Pulse Resp B/P Pulse Ox O2 Delivery O2 Flow Rate FiO2 02/15/17 08:00 97.4 82 19 108/78 95 02/15/17 04:09 96.1 74 16 117/73 95 02/15/17 00:00 97.1 83 16 114/70 93 02/14/17 20:00 98.7 76 16 119/86 96 02/14/17 17:32 95 21 I/O 02/14/17 02/14/17 02/14/17 02/15/17 02/15/17 02/15/17 07:00 15:00 23:00 07:00 15:00 23:00 Intake Total 730 ml 750 ml 1190 ml 350 ml Output Total 650 ml 300 ml 2200 ml 600 ml Balance 80 ml 450 ml -1010 ml -250 ml Intake Oral 730 ml 750 ml 450 ml 350 ml IV Total 740 ml Output Urine Total 650 ml 300 ml 2200 ml 600 ml Bladder Scan Volume Amount 655 ml # Bowel Movements 1 0 # Sanitary Pads 1 Pads 0 Pads 0 Pads 4 Pads Result Diagram: 02/15/1752402/15/17524 Objective Remarks GENERAL: Obese female in no apparent distress. CARDIOVASCULAR: Normal rate and regular rhythm without murmurs, gallops, or rubs. RESPIRATORY: Good respiratory efforts. Breath sounds equal and clear to auscultation bilaterally. GASTROINTESTINAL: Abdomen soft, non-tender, non-distended. Normal active bowel sounds MUSCULOSKELETAL: Extremities without cyanosis, or edema. NEURO: Alert & Oriented x4 to person, place, time, situation. Moves all ext x4 PSYCH: Appropriate mood and affect. 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 Dr. Guerrier and Dr. Vaughn following. -Status post IR embolization of right uterine and conjunctivae were the vision of thoracic arteries. Unable to do hysterectomy secondary to tumor burden and risks of hemorrhage. Patient undergoing radiation. S/p port placement for chemotherapy with cisplatin. - Follow H&H. Anemia secondary to blood loss: H&H trending down. Blood transfusion today. Lasix after the first units to help with fluid overload per the patient's request. Newly diagnosed diabetes: Hemoglobin A1c of 12.3 -Continue Levemir to 18 units BID. Med SSI with accuchecks. 1500-calorie diet. - social media project manager consulted. I discussed weight loss at length with the patient. - Thyroid functions ok. - She will need close outpatient follow up. Consider metformin Constipation/Diverticulosis: Advise high-fiber diet. Avoid constipation. Continue Crystal-Colace. Add lactulose Obesity: Previously discussed weight loss and lifestyle modification at length with the patient. She seems motivated. Lipid profile OK except for low HDL. Physical activity can help raise HDL. Dolly Young MD Feb 15, 2017 15:29
[2017-02-15] MEDS ORDERED: FUROSEMIDE 20 MG/2 ML VIAL IV ONE (15:30)
[2017-02-15] MEDS ORDERED: LACTULOSE SYRUP 20 GM/30 ML CUP PO PRN (15:30)
[2017-02-15] MEDS ORDERED: LACTULOSE SYRUP 20 GM/30 ML CUP PO ONE (16:00)
--- NOTE | 2017-02-15 16:27 | HHI.PR ---
Subjective Remarks Hospital day 10 has returned from radiation, states bleeding about the same anticipating 2 units of blood this afternoon has not moved bowels but no pain espinoza in place with clear urine pain at port site sugars better except for around steroid dose Objective Vital Signs Vital Signs Date Time Temp Pulse Resp B/P Pulse Ox O2 Delivery O2 Flow Rate FiO2 02/15/17 16:00 97.0 82 19 102/64 98 02/15/17 13:30 97.3 80 20 103/75 96 02/15/17 08:00 97.4 82 19 108/78 95 02/15/17 04:09 96.1 74 16 117/73 95 02/15/17 00:00 97.1 83 16 114/70 93 02/14/17 20:00 98.7 76 16 119/86 96 02/14/17 17:32 95 21 I/O 02/14/17 02/14/17 02/14/17 02/15/17 02/15/17 02/15/17 07:00 15:00 23:00 07:00 15:00 23:00 Intake Total 730 ml 750 ml 1190 ml 350 ml Output Total 650 ml 300 ml 2200 ml 600 ml Balance 80 ml 450 ml -1010 ml -250 ml Intake Oral 730 ml 750 ml 450 ml 350 ml IV Total 740 ml Output Urine Total 650 ml 300 ml 2200 ml 600 ml Bladder Scan Volume Amount 655 ml # Bowel Movements 1 0 # Sanitary Pads 1 Pads 0 Pads 0 Pads 1 Pads 4 Pads Result Diagram: 02/15/17 0525 02/15/17 0525 Objective Remarks Chest is clear, regular rate and rhythm. Abdomen is soft and non-distended. perineum dry at this time Ext no CCE. sequentials on urine in espinoza bag clear A/P Assessment and Plan Has received amicar and radiation today will have radiation saturday and saturday will get 2 units blood stable at this time. Nona Guerrier MD Feb 15, 2017 16:27
[2017-02-16] VITALS (9 sets, daily range): BP systolic 96–116; BP diastolic 48–68; PULSE 83–90; RESP 16–19; TEMP 96.8–98.6; O2SAT 93–98
[2017-02-16] MEDS: AMINOCAPROIC ACID 500 MG TAB PO SCH ×4 (00:15→18:00)
[2017-02-16 05:16] LABS: HEMATOCRIT 28.5 % (35.0-46.0); MEAN CELL VOLUME 86.2 FL (80.0-100.0); MEAN CORPUSCULAR HEMOGLOBIN 29.5 PG (27.0-34.0); MEAN CORPUSCULAR HGB CONC 34.2 % (32.0-36.0); PLATELET COUNT 264 TH/MM3 (150-450); REVIEW FLAG FINAL; WHITE BLOOD COUNT 11.5 TH/MM3 (4.0-11.0)
[2017-02-16 05:48] LABS: BICARBONATE 28.6 MEQ/L (21.0-32.0); POTASSIUM 3.4 MEQ/L (3.5-5.1)
[2017-02-16] MEDS: INSULIN ASPART SUPPLEMENTAL SCALE SQ SCH ×4 (05:51→19:54)
[2017-02-16] MEDS: ONDANSETRON HCL 4 MG/2 ML VIAL IV PRN ×2 (08:45→20:53)
[2017-02-16] MEDS: DOCUSATE SODIUM 50 MG/SENNA 8.6 MG TAB PO SCH ×2 (08:45→19:53)
[2017-02-16] MEDS: INSULIN DETEMIR 100 UNITS/ML VIAL SQ SCH ×2 (08:45→19:53)
--- NOTE | 2017-02-16 08:58 | PD.ONC.PN ---
Subjective Subjective Remarks Afebrile overnight. Pt resting in bed in no distress ordering breakfast. She states her bleeding has decreased. Vaginal bleeding has become sparse and darker per pt. No other complaints. She is looking forward to washing her hair today. Objective Data Date Time Temp Pulse Resp B/P Pulse Ox O2 Delivery O2 Flow Rate FiO2 02/16/17 04:00 98.2 84 19 106/67 97 02/16/17 02:29 97.1 83 16 96/63 93 02/16/17 00:28 97.1 87 16 100/49 97 02/16/17 00:10 96.8 87 16 101/48 98 02/16/17 00:00 98.0 90 18 96/60 96 02/15/17 20:00 96.5 86 19 100/65 97 02/15/17 17:39 98.3 89 18 93/59 96 02/15/17 16:00 97.0 82 19 102/64 98 02/15/17 13:30 97.3 80 20 103/75 96 02/16/17 02/16/17 02/16/17 07:00 15:00 23:00 Intake Total 720 ml Output Total 800 ml Balance -80 ml Result Diagram: 02/16/17 0435 02/16/17 0435 Laboratory Results Laboratory Tests Test 02/15/17 02/16/17 08:54 04:35 Blood Type O POSITIVE Antibody Screen NEGATIVE Crossmatch Leukocyte-Reduced Red Blood Cells Blood Bank Comment White Blood Count 11.5 TH/MM3 Red Blood Count 3.30 MIL/MM3 Hemoglobin 9.7 GM/DL Hematocrit 28.5 % Mean Corpuscular Volume 86.2 FL Mean Corpuscular Hemoglobin 29.5 PG Mean Corpuscular Hemoglobin 34.2 % Concent Red Cell Distribution Width 14.0 % Platelet Count 264 TH/MM3 Mean Platelet Volume 8.7 FL Sodium Level 141 MEQ/L Potassium Level 3.4 MEQ/L Chloride Level 104 MEQ/L Carbon Dioxide Level 28.6 MEQ/L Anion Gap 8 MEQ/L Blood Urea Nitrogen 13 MG/DL Creatinine 0.58 MG/DL Estimat Glomerular Filtration 107 ML/MIN Rate Random Glucose 111 MG/DL Calcium Level 8.3 MG/DL Administered Medications Medications (Trade) Dose Ordered Sig/Mack Route PRN Reason Start Time Stop Time Status Last Admin Dose Admin Oxycodone/ Acetaminophen (Percocet 5-325 Mg) 1 tab Q4H PRN PO PAIN 1-5 02/05/17 22:30 02/14/17 08:35 Magnesium Hydroxide (Milk Of Magntammi Liq) 30 ml DAILY PRN PO moderate constipation 02/08/17 22:00 02/14/17 06:34 Bisacodyl (Dulcolax Supp) 10 mg DAILY PRN RECTAL mild CONSTIPATION 02/08/17 22:00 02/14/17 08:25 Insulin Detemir (Levemir Inj) 18 units BID SQ 02/10/17 09:00 02/15/17 21:08 Acetaminophen (Tylenol) 650 mg Q4H PRN PO Temp > 100.4 02/11/17 05:45 02/15/17 15:39 Oxycodone/ Acetaminophen (Percocet 10-325 Mg) 1 tab Q6H PRN PO PAIN SCALE 6 TO 10 02/11/17 14:15 02/12/17 15:14 Morphine Sulfate (Morphine Inj) 2 mg Q3H PRN IV BREAKTHROUGH PAIN 02/11/17 14:15 02/11/17 14:37 Senna/Docusate Sodium 1 tab 1 tab BID PO 02/14/17 21:00 02/15/17 08:49 Cisplatin/Sodium Chloride (Platinol Inj/NS 250 ml Inj) 330 ml @ 330 mls/hr Q7D IV 02/14/17 16:00 03/21/17 16:59 02/14/17 19:01 Mannitol 25 gm 25 gm Q7D IV 02/14/17 15:00 03/21/17 15:01 02/14/17 15:00 Dexamethasone Sodium Phosphate/ Sodium Chloride (Decadron Inj/NS Inj) 55 ml @ 220 mls/hr Q7D IV 02/14/17 15:00 03/21/17 15:14 02/14/17 17:29 Granisetron HCl (Kytril Inj) 1 mg Q7D IV 02/14/17 15:00 03/21/17 15:01 02/14/17 17:30 Aminocaproic Acid (Amicar) 2,000 mg Q6HR PO 02/15/17 12:00 02/17/17 11:59 02/16/17 05:59 Acetaminophen (Tylenol) 650 mg UNSCH PRN PO BLOOD TRANSFUSION 02/15/17 20:15 02/15/17 22:58 Diphenhydramine HCl (Benadryl) 25 mg UNSCH PRN PO BLOOD TRANSFUSION 02/15/17 20:15 02/15/17 22:58 Objective Remarks GENERAL: Obese middle-aged female sitting up in bed in no distress. SKIN: Warm and dry. HEAD: Normocephalic. EYES: No injection or drainage. NECK: Supple, trachea midline. CARDIOVASCULAR: + S1/S2. RESPIRATORY: Breath sounds equal bilaterally. No accessory muscle use. GASTROINTESTINAL: Abdomen soft, non-tender. EXTREMITIES: Trace edema to BLE. SCDs in place. NEUROLOGICAL: No obvious focal deficit. Awake, alert, and oriented x3. Assessment/Plan Assessment 56-year-old postmenopausal female admitted for vaginal bleeding. 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 She received uterine artery embolization as well as 1 dose of cisplatin and XRT. Plan The patient's bleeding has overall decrease. She received 1 unit of packed red blood cells yesterday and her hemoglobin today is 9.7. We will continue the Amicar. She will also be getting weekly cisplatin. Her vaginal packing will be moistened with Amicar liquid as well. We will continue to monitor counts. Attending Statement The exam, history, and the medical decision-making described in the above note were completed with the assistance of the mid-level provider. I reviewed and agree with the findings presented. I attest that I had a [id number] encounter with the patient on the same day, and personally performed and documented my assessment and findings in the medical record. there may be a slight decrease in bleeding. she is tolerating radiation and weekly chemotherapy without problems and suspect that we will see an impact of the radiation in 1-2 weeks time. It is not clear if the amicar is helping. Will continue through Saturday then stop due to significant risk of pelvic/lower extremity DVT given cancer diagnosis and obesity. In mean time will continue compression stockings and walk. check cbc plat in am and pt and ptt to make sure that plasma factors are not becoming depleted. Gi Ness Feb 16, 2017 08:58 Yuval Ly MD Feb 16, 2017 12:59
[2017-02-16] MEDS ORDERED: AMINOCAPROIC ACID SOLN 250 MG/ML PO ONE (09:00)
[2017-02-16] MEDS ORDERED: POTASSIUM CHLORIDE 20 MEQ CONTROLLED RELEASE TAB PO ONE (09:00)
--- NOTE | 2017-02-16 10:50 | HHI.PR ---
Subjective Remarks Patient reports vaginal bleeding is slightly improved. She is ambulating better. Blood glucose better. Objective Vitals Vital Signs Date Time Temp Pulse Resp B/P Pulse Ox O2 Delivery O2 Flow Rate FiO2 02/16/17 08:00 98.6 86 18 111/66 93 02/16/17 04:00 98.2 84 19 106/67 97 02/16/17 02:29 97.1 83 16 96/63 93 02/16/17 00:28 97.1 87 16 100/49 97 02/16/17 00:10 96.8 87 16 101/48 98 02/16/17 00:00 98.0 90 18 96/60 96 02/15/17 20:00 96.5 86 19 100/65 97 02/15/17 17:39 98.3 89 18 93/59 96 02/15/17 16:00 97.0 82 19 102/64 98 02/15/17 13:30 97.3 80 20 103/75 96 I/O 02/15/17 02/15/17 02/15/17 02/16/17 02/16/17 02/16/17 07:00 15:00 23:00 07:00 15:00 23:00 Intake Total 350 ml 720 ml 720 ml Output Total 600 ml 1850 ml 800 ml Balance -250 ml -1130 ml -80 ml Intake Oral 350 ml 720 ml 720 ml Output Urine Total 600 ml 1850 ml 800 ml Bladder Scan Volume Amount 655 ml # Bowel Movements 0 # Sanitary Pads 1 Pads 1 Pads Result Diagram: 02/16/17 0435 02/16/17 0435 Objective Remarks GENERAL: Obese female in no apparent distress. CARDIOVASCULAR: Normal rate and regular rhythm without murmurs, gallops, or rubs. RESPIRATORY: Good respiratory efforts. Breath sounds equal and clear to auscultation bilaterally. GASTROINTESTINAL: Abdomen soft, non-tender, non-distended. Normal active bowel sounds MUSCULOSKELETAL: Extremities without cyanosis, or edema. NEURO: Alert & Oriented x4 to person, place, time, situation. Moves all ext x4 PSYCH: Appropriate mood and affect. 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 Dr. Guerrier and Dr. Vaughn following. -Status post IR embolization of right uterine and conjunctivae were the vision of thoracic arteries. Unable to do hysterectomy secondary to tumor burden and risks of hemorrhage. Patient undergoing radiation. S/p port placement for chemotherapy with cisplatin. - Follow H&H and transfuse as needed. Anemia secondary to blood loss: s/p multiple transfusion. Continue to support with as needed transfusions. Newly diagnosed diabetes: Hemoglobin A1c of 12.3 -Continue Levemir to 18 units BID. Med SSI with accuchecks. 1500-calorie diet. - interpersonal communications professor consulted. I discussed weight loss at length with the patient. - Thyroid functions ok. - She will need close outpatient follow up. Consider metformin on discharge and no other contrast procedures planned. Constipation/Diverticulosis: Advise high-fiber diet. Avoid constipation. Continue Crystal-Colace. Add lactulose Obesity: Previously discussed weight loss and lifestyle modification at length with the patient. She seems motivated. Lipid profile OK except for low HDL. Physical activity can help raise HDL. Dolly Young MD Feb 16, 2017 10:50
--- NOTE | 2017-02-16 11:01 | HHI.PR ---
Subjective Remarks Stephanie is in radiation at this time relayed to nurse this am that bleeding may be a little better no other complaints Objective Vital Signs Vital Signs Date Time Temp Pulse Resp B/P Pulse Ox O2 Delivery O2 Flow Rate FiO2 02/16/17 08:00 98.6 86 18 111/66 93 02/16/17 04:00 98.2 84 19 106/67 97 02/16/17 02:29 97.1 83 16 96/63 93 02/16/17 00:28 97.1 87 16 100/49 97 02/16/17 00:10 96.8 87 16 101/48 98 02/16/17 00:00 98.0 90 18 96/60 96 02/15/17 20:00 96.5 86 19 100/65 97 02/15/17 17:39 98.3 89 18 93/59 96 02/15/17 16:00 97.0 82 19 102/64 98 02/15/17 13:30 97.3 80 20 103/75 96 I/O 02/15/17 02/15/17 02/15/17 02/16/17 02/16/17 02/16/17 07:00 15:00 23:00 07:00 15:00 23:00 Intake Total 350 ml 720 ml 720 ml Output Total 600 ml 1850 ml 800 ml Balance -250 ml -1130 ml -80 ml Intake Oral 350 ml 720 ml 720 ml Output Urine Total 600 ml 1850 ml 800 ml Bladder Scan Volume Amount 655 ml # Bowel Movements 0 # Sanitary Pads 1 Pads 1 Pads Result Diagram: 02/16/17 0435 02/16/17 0435 A/P Assessment and Plan H & H better after transfusion report is reassuring discussed with dr. Ly and in agreement with amicar through saturday and transfusion +/- other products as needed for the next week or so until radiation has stopped bleeding. Acknowledge high risk for DVT and will watch carefully. Nona Guerrier MD Feb 16, 2017 11:01
--- NOTE | 2017-02-16 14:22 | MB ---
cc: HILDA GIRALDO M.D. DATE OF CONSULTATION: 02/15/2017 DATE OF : 1960 REFERRING PHYSICIAN: Dr. Nona Guerrier MD. CHIEF COMPLAINT Dr. Guerrier requests consultation for Ms. 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 HISTORY OF PRESENT ILLNESS Mrs. Weller is a 56-year-old woman well-known patient to Dr. Tresa Guerrier and Dr. Mela Vaughn. She is undergoing workup for a vaginal bleeding. She presented with some vaginal bleeding and back pain initially intermittent has become more progressive. She was admitted to the hospital for the vaginal bleeding. Workup includes is a CT scan of the abdomen and pelvis that showed a diffusely enlarged uterus scattered diverticulosis without inflammatory changes. The chest is clear. The initial biopsy from February 05, 2017 showed an extensively necrotic high-grade spindle cell malignancy consisting in the differential of carcinosarcoma adenocarcinoma, endometrioid sarcomatoid neoplasm. 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 Miss Weller's course has been complicated by persistent vaginal bleeding. She came in with a hemoglobin of 11.7 on 02/05/2017. Her hemoglobin decreased to 8.6 on the day of the consultation. The case was discussed with Dr. Guerrier. We discussed some creative options to mitigate the bleeding. We considered the possibility of anti thrombolytic agents. She has no urinary tract involvement. Although her urinalysis shows account blood, large amounts this is likely contaminated from her vaginal bleeding. Her urine is clear in the [place]. She was given a trial of Amicar last 24 hours. Her hemoglobin went from 8.7 to 8.6. Clinically this seems to be no difference. In the meantime she is under the care of Dr. Mela Vaughn and Dr. Delvin Junior. In light of the prompt and in the risk of bleeding radiation therapy was a initiated by Dr. Junior. Dr. Vaughn is starting concurrent chemotherapy with cisplatin as a radiation [facility]. Despite the initiation of radiation promptly. She still has no changes in bleeding. Interventional radiology was consulted. There are no large vessel for them to embolization and effectively affect the bleeding. On February 13, partial embolization interior division of both internal iliac arteries, uncomplicated directed embolization of the right uterine artery was attempted. Hematology/Oncology is consulted for adjunctive therapy to assist in stopping the bleeding that is tumor related. Mrs Weller denies any prior bleeding history. She has no easy bruising or epistaxis. There is no family history of bleeding. She was well until the above presentation brought her in to see Dr. Guerrier. She had some high glucose levels on admission her glucose was 326 consistent with a diagnosis of diabetes. She was not aware of that. Her blood pressure was normal. She has no personal history of venous thromboembolic event. 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 2. Vaginal bleeding. 3. Anemia secondary to vaginal bleeding. PAST SURGICAL HISTORY: Endometrial / cervical biopsy. SOCIAL HISTORY Denies any tobacco, alcohol or illicit drug use. FAMILY HISTORY: No significant family history of bleeding disorder. ALLERGIES PENICILLIN CURRENT MEDICATIONS Acetaminophen. Benadryl lactulose Amicar. Crystal-Colace. Potassium Cisplatin Mannitol Dexamethazone. Kytril. Percocet p.r.n. Morphine p.r.n. NovoLog Levemir Milk of Magnesia Dulcolax. PHYSICAL EXAMINATION VITAL SIGNS: Temperature 98.3 heart rate 89, respiratory rate 18, blood pressure 93/59, saturation 96%. IN GENERAL: Miss Weller is a well developed, obese woman who looks her stated age. She is bright and amiable and agreeable. HEAD, EYES, EARS, NOSE, AND THROAT: Her pupils are reactive to light and accommodation and that was pink. Oropharynx is clear. NECK: Neck is supple. LUNGS: Clear. CARDIOVASCULAR SYSTEM: Exam reveals normal rate, rhythm. ABDOMEN: Abdomen is large but benign lower extremities with no edema. NEUROLOGICAL: Exam is nonfocal. LABORATORY DATA Significant for BUN of 13, creatinine 0.73, hemoglobin 8.6, platelet count 269. PT/PTT are normal. ASSESSMENT/PLAN Miss Weller is a 56-year-old woman with a history of nondiagnosed diabetes who presents with vaginal bleeding and diagnosed with vaginal tumor concerning for carcinosarcoma which is not amenable to initial surgery. She has a course complicated by a large cervix with extensive bleeding. We had a lengthy discussion about the mechanism of action of a car. It is generally medication use as adjunctive therapy for patients with bleeding disorder. It is much more effective a mucosal surfaces. We discussed a trial of the last 24 hours of Amicar. She seems to have tolerated it well without any complication. We discussed the concern for hematuria, however the bleed that she is hematuria rather than contamination of her urine sample. We discussed repeating the urinalysis. She seems to have a plateau on her hemoglobin from 8.7 to 8.6 over the last 24 hours that she has been on the Amicar. Clinically it is difficult to determine the if her bleeding is more or less. She has been transfused 2 units of packed red cells to improve her anemia. She is also undergoing on concurrent chemotherapy and radiation which invariably was brought to effect and promotes hemostasis as the tumor is being addressed. We have discussed the continued trial and close monitoring, the safety of using Amicar in this manner. So far she seems to tolerate it well. We will assess every day and continue as needed if benefit is felt to be derived from the adjunctive therapy. An alternative would be through added packing has Amicar is also available in solution form. Topical administration may be helpful in the more superficial blood vessels and enhancing hemostasis. She has no family history of bleeding disorder. I defer from further workup or underlying bleeding disorder. I suspect this is a bleeding primarily from underlying tumor. We discussed that cancer is thrombolic state, she is at increased risk for venous thromboembolic event, particularly since she is confined to bed for most of the day. She is advised to move her legs and use the pneumatic compression stockings. Nonpharmacologic measures should be optimized to decrease the risk of deep vein thromboses. She is aware of this and plans to move her legs appropriately. So far there is no evidence of swelling or bleeding. Mrs. Weller's questions were answered to her satisfaction. MD TERRI Rivera/ariane /9:03 PM /1:37 PM
[2017-02-17] VITALS: BP 119/61; PULSE 91; RESP 18; TEMP 98.4; O2SAT 96
[2017-02-17] MEDS: AMINOCAPROIC ACID 500 MG TAB PO SCH ×2 (00:32→05:33)
[2017-02-17 04:00] VITALS: BP 101/66; PULSE 79; RESP 18; TEMP 96.7; O2SAT 97
[2017-02-17] MEDS: INSULIN ASPART SUPPLEMENTAL SCALE SQ SCH ×4 (05:35→19:52)
[2017-02-17 06:42] LABS: APTT (PATIENT) 26.5 SEC (24.3-30.1); PROTHROMBIN TIME - PATIENT 10.5 SEC (9.8-11.6)
[2017-02-17] MEDS: ONDANSETRON HCL 4 MG/2 ML VIAL IV PRN (06:50)
[2017-02-17 07:36] LABS: AUTOMATED NEUTROPHIL # 7.3 TH/MM3 (1.8-7.7); BASOPHIL % 0.1 % (0.0-2.0); EOSINOPHIL # 0.1 TH/MM3 (0-0.4); EOSINOPHIL % 1.3 % (0.0-4.0); HEMO FLAGS DIFF FINAL; LYMPH % 7.4 % (9.0-44.0); LYMPHOCYTE # 0.6 TH/MM3 (1.0-4.8); MEAN CELL VOLUME 87.5 FL (80.0-100.0); MEAN CORPUSCULAR HGB CONC 33.2 % (32.0-36.0); MONO % 5.2 % (0.0-8.0); PLATELET COUNT 252 TH/MM3 (150-450); RED BLOOD COUNT 3.21 MIL/MM3 (4.00-5.30); RED CELL DISTRIBUTION WIDTH 14.2 % (11.6-17.2); WHITE BLOOD COUNT 8.5 TH/MM3 (4.0-11.0)
[2017-02-17 08:00] VITALS: BP 125/69; PULSE 88; RESP 18; TEMP 97.5; O2SAT 99
[2017-02-17] MEDS: INSULIN DETEMIR 100 UNITS/ML VIAL SQ SCH ×2 (08:42→19:52)
[2017-02-17] MEDS: DOCUSATE SODIUM 50 MG/SENNA 8.6 MG TAB PO SCH ×2 (08:47→19:52)
--- NOTE | 2017-02-17 08:53 | HHI.PR ---
POWERBUILDER Note Note Hospital day 12 Up moving around today comfortably after yesterday's radiation, her bleeding has minimized--now changing pad with moderate amount every four hours. no longer constipated no pain in good spirits H and H is stable over last two days sugars greatly improving abdomen soft peripad largely dry urine in espinoza clear no CVAT Will stop espinoza and amicar continue radiation Nona Guerrier MD Feb 17, 2017 08:53
--- NOTE | 2017-02-17 09:28 | PD.ONC.PN ---
Subjective Subjective Remarks Afebrile overnight. Pt states she is confident that the bleeding has decreased since yesterday. She states she feels great. She is looking forward to taking a shower today. Objective Data Date Time Temp Pulse Resp B/P Pulse Ox O2 Delivery O2 Flow Rate FiO2 02/17/17 08:00 97.5 88 18 125/69 99 02/17/17 04:00 96.7 79 18 101/66 97 02/17/17 00:00 98.4 91 18 119/61 96 02/16/17 20:00 97.8 85 17 116/68 95 02/16/17 16:00 98.5 87 18 110/65 94 02/16/17 12:00 98.3 89 18 116/66 94 02/17/17 02/17/17 02/17/17 07:00 15:00 23:00 Intake Total 480 ml Output Total 550 ml Balance -70 ml Result Diagram: 02/17/17 0538 02/16/17 0435 Laboratory Results Laboratory Tests Test 02/17/17 05:38 White Blood Count 8.5 TH/MM3 Red Blood Count 3.21 MIL/MM3 Hemoglobin 9.3 GM/DL Hematocrit 28.0 % Mean Corpuscular Volume 87.5 FL Mean Corpuscular Hemoglobin 29.0 PG Mean Corpuscular Hemoglobin 33.2 % Concent Red Cell Distribution Width 14.2 % Platelet Count 252 TH/MM3 Mean Platelet Volume 8.8 FL Neutrophils (%) (Auto) 86.0 % Lymphocytes (%) (Auto) 7.4 % Monocytes (%) (Auto) 5.2 % Eosinophils (%) (Auto) 1.3 % Basophils (%) (Auto) 0.1 % Neutrophils # (Auto) 7.3 TH/MM3 Lymphocytes # (Auto) 0.6 TH/MM3 Monocytes # (Auto) 0.4 TH/MM3 Eosinophils # (Auto) 0.1 TH/MM3 Basophils # (Auto) 0.0 TH/MM3 CBC Comment DIFF FINAL Differential Comment Prothrombin Time 10.5 SEC Prothromb Time International 1.0 RATIO Ratio Activated Partial 26.5 SEC Thromboplast Time Administered Medications Medications (Trade) Dose Ordered Sig/Mack Route PRN Reason Start Time Stop Time Status Last Admin Dose Admin Oxycodone/ Acetaminophen (Percocet 5-325 Mg) 1 tab Q4H PRN PO PAIN 1-5 02/05/17 22:30 02/14/17 08:35 Magnesium Hydroxide (Milk Of Magnesia Liq) 30 ml DAILY PRN PO moderate constipation 02/08/17 22:00 02/14/17 06:34 Bisacodyl (Dulcolax Supp) 10 mg DAILY PRN RECTAL mild CONSTIPATION 02/08/17 22:00 02/14/17 08:25 Insulin Detemir (Levemir Inj) 18 units BID SQ 02/10/17 09:00 02/17/17 08:42 Acetaminophen (Tylenol) 650 mg Q4H PRN PO Temp > 100.4 02/11/17 05:45 02/15/17 15:39 Ondansetron HCl (Zofran Inj) 4 mg Q6H PRN IV NAUSEA 02/11/17 05:45 02/17/17 06:50 Oxycodone/ Acetaminophen (Percocet 10-325 Mg) 1 tab Q6H PRN PO PAIN SCALE 6 TO 10 02/11/17 14:15 02/12/17 15:14 Morphine Sulfate (Morphine Inj) 2 mg Q3H PRN IV BREAKTHROUGH PAIN 02/11/17 14:15 02/11/17 14:37 Senna/Docusate Sodium 1 tab 1 tab BID PO 02/14/17 21:00 02/16/17 08:45 Cisplatin/Sodium Chloride (Platinol Inj/NS 250 ml Inj) 330 ml @ 330 mls/hr Q7D IV 02/14/17 16:00 03/21/17 16:59 02/14/17 19:01 Mannitol 25 gm 25 gm Q7D IV 02/14/17 15:00 03/21/17 15:01 02/14/17 15:00 Dexamethasone Sodium Phosphate/ Sodium Chloride (Decadron Inj/NS Inj) 55 ml @ 220 mls/hr Q7D IV 02/14/17 15:00 03/21/17 15:14 02/14/17 17:29 Granisetron HCl (Kytril Inj) 1 mg Q7D IV 02/14/17 15:00 03/21/17 15:01 02/14/17 17:30 Lactulose (Lactulose Liq) 30 ml DAILY PRN PO severe constipation 02/15/17 15:30 02/16/17 08:47 Acetaminophen (Tylenol) 650 mg UNSCH PRN PO BLOOD TRANSFUSION 02/15/17 20:15 02/15/17 22:58 Diphenhydramine HCl (Benadryl) 25 mg UNSCH PRN PO BLOOD TRANSFUSION 02/15/17 20:15 02/15/17 22:58 Objective Remarks GENERAL: Obese middle-aged female walking around the room in no distress. SKIN: Warm and dry. HEAD: Normocephalic. EYES: No injection or drainage. NECK: Supple, trachea midline. CARDIOVASCULAR: + S1/S2. RESPIRATORY: Breath sounds equal bilaterally. No accessory muscle use. GASTROINTESTINAL: Abdomen soft, non-tender. EXTREMITIES: Trace edema to BLE. SCDs in place. NEUROLOGICAL: No obvious focal deficit. Awake, alert, and oriented x3. Assessment/Plan Assessment 56-year-old postmenopausal female admitted for vaginal bleeding. 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 Plan Her vaginal bleeding is quite decreased. The Amicar was discontinued as this would put her at a higher risk of thrombosis. She has been taking walks around the nursing unit and wearing her SCD's while in bed to decreased her risks of a blood clot. She is getting weekly Cisplatin and daily XRT. Her blood work is quite stable today and we will continue to follow this. Attending Statement The exam, history, and the medical decision-making described in the above note were completed with the assistance of the mid-level provider. I reviewed and agree with the findings presented. I attest that I had a [id number] encounter with the patient on the same day, and personally performed and documented my assessment and findings in the medical record. she is in great spirits and no significant bleeding. next cisplatin is Saturday and radiation continues daily. no further need for Amicar. Gi Ness Feb 17, 2017 09:28 Yuval Ly MD Feb 17, 2017 14:50
[2017-02-17 10:44] LABS: BICARBONATE 27.9 MEQ/L (21.0-32.0); POTASSIUM 3.5 MEQ/L (3.5-5.1)
[2017-02-17 12:00] VITALS: BP 115/58; PULSE 97; RESP 18; TEMP 97.1; O2SAT 98
--- NOTE | 2017-02-17 13:14 | HHI.PR ---
Subjective Remarks Patient reports she feels much better this morning. She was able to shower. Bleeding is less. No lightheadedness or heart palpitations. Objective Vitals Vital Signs Date Time Temp Pulse Resp B/P Pulse Ox O2 Delivery O2 Flow Rate FiO2 02/17/17 08:00 97.5 88 18 125/69 99 02/17/17 04:00 96.7 79 18 101/66 97 02/17/17 00:00 98.4 91 18 119/61 96 02/16/17 20:00 97.8 85 17 116/68 95 02/16/17 16:00 98.5 87 18 110/65 94 I/O 02/16/17 02/16/17 02/16/17 02/17/17 02/17/17 02/17/17 07:00 15:00 23:00 07:00 15:00 23:00 Intake Total 720 ml 1440 ml 480 ml Output Total 800 ml 900 ml 800 ml 550 ml Balance -80 ml 540 ml -800 ml -70 ml Intake Oral 720 ml 1440 ml 480 ml IV Total 0 ml Output Urine Total 800 ml 900 ml 800 ml 550 ml # Bowel Movements 2 3 Result Diagram: 02/17/17 0538 02/17/17 1016 Objective Remarks GENERAL: Obese female in no apparent distress. CARDIOVASCULAR: Normal rate and regular rhythm without murmurs, gallops, or rubs. RESPIRATORY: Good respiratory efforts. Breath sounds equal and clear to auscultation bilaterally. GASTROINTESTINAL: Abdomen soft, non-tender, non-distended. Normal active bowel sounds MUSCULOSKELETAL: Extremities without cyanosis, or edema. NEURO: Alert & Oriented x4 to person, place, time, situation. Moves all ext x4 PSYCH: Appropriate mood and affect. 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 Dr. Guerrier, Dr. Johns, and Dr. Vaughn following. -Status post IR embolization of right uterine arteries. Unable to do hysterectomy secondary to tumor burden and risks of hemorrhage. Patient undergoing radiation. S/p port placement for chemotherapy with cisplatin. - Follow H&H and transfuse as needed. Anemia secondary to blood loss: s/p multiple transfusion. Continue to support with as needed transfusions. Newly diagnosed diabetes: Hemoglobin A1c of 12.3 -Continue Levemir to 18 units BID. Med SSI with accuchecks. 1500-calorie diet. - center customer service associate consulted. I discussed weight loss at length with the patient. - Thyroid functions ok. - She will need close outpatient follow up. Consider metformin on discharge and no other contrast procedures planned. Constipation/Diverticulosis: Advise high-fiber diet. Avoid constipation. Continue Crystal-Colace. Add lactulose PRN Obesity: Previously discussed weight loss and lifestyle modification at length with the patient. She seems motivated. Lipid profile OK except for low HDL. Physical activity can help raise HDL. Dolly Young MD Feb 17, 2017 13:14
[2017-02-17 16:00] VITALS: BP 122/64; PULSE 80; TEMP 97.1; O2SAT 97
[2017-02-17 20:00] VITALS: BP 124/68; PULSE 95; RESP 18; TEMP 98.4; O2SAT 99
[2017-02-18] VITALS: BP 111/59; PULSE 81; RESP 19; TEMP 97.3; O2SAT 98
[2017-02-18 04:00] VITALS: BP 132/77; PULSE 86; RESP 19; TEMP 98.1; O2SAT 99
[2017-02-18] MEDS: ONDANSETRON HCL 4 MG/2 ML VIAL IV PRN (05:36)
[2017-02-18] MEDS: INSULIN ASPART SUPPLEMENTAL SCALE SQ SCH ×4 (05:41→21:00)
[2017-02-18 06:24] LABS: HEMATOCRIT 29.5 % (35.0-46.0); MEAN CELL VOLUME 87.3 FL (80.0-100.0); MEAN CORPUSCULAR HEMOGLOBIN 29.1 PG (27.0-34.0); MEAN CORPUSCULAR HGB CONC 33.4 % (32.0-36.0); PLATELET COUNT 286 TH/MM3 (150-450); RED BLOOD COUNT 3.38 MIL/MM3 (4.00-5.30); RED CELL DISTRIBUTION WIDTH 14.1 % (11.6-17.2); REVIEW FLAG FINAL; WHITE BLOOD COUNT 7.9 TH/MM3 (4.0-11.0)
[2017-02-18 06:46] LABS: BICARBONATE 28.9 MEQ/L (21.0-32.0); POTASSIUM 3.7 MEQ/L (3.5-5.1)
[2017-02-18 08:00] VITALS: BP 130/76; PULSE 86; RESP 20; TEMP 98.3; O2SAT 97
--- NOTE | 2017-02-18 08:39 | PD.ONC.PN ---
Subjective Subjective Remarks PT is sitting up in chair eating breakfast states that the bleeding has decreased has been up walking the halls and olga is D/Cd Dr. Shah was in to see pt and will discharge her once Ok with Dr. Fink and Dr. Vaughn Pt states that she has a sister who is an RN will be staying with her so she has good support at home. Objective Data Date Time Temp Pulse Resp B/P Pulse Ox O2 Delivery O2 Flow Rate FiO2 02/18/17 04:00 98.1 86 19 132/77 99 02/18/17 00:00 97.3 81 19 111/59 98 02/17/17 20:00 98.4 95 18 124/68 99 02/17/17 16:00 97.1 80 122/64 97 02/17/17 12:00 97.1 97 18 115/58 98 02/18/17 02/18/17 02/18/17 07:00 15:00 23:00 Intake Total 480 ml Output Total 1200 ml Balance -720 ml Result Diagram: 02/18/17 0541 02/18/17 0541 Laboratory Results Laboratory Tests Test 02/17/17 02/18/17 10:16 05:41 Sodium Level 139 MEQ/L 142 MEQ/L Potassium Level 3.5 MEQ/L 3.7 MEQ/L Chloride Level 102 MEQ/L 105 MEQ/L Carbon Dioxide Level 27.9 MEQ/L 28.9 MEQ/L Anion Gap 9 MEQ/L 8 MEQ/L Blood Urea Nitrogen 10 MG/DL 12 MG/DL Creatinine 0.60 MG/DL 0.53 MG/DL Estimat Glomerular Filtration 103 ML/MIN 118 ML/MIN Rate Random Glucose 192 MG/DL 99 MG/DL Calcium Level 8.0 MG/DL 8.5 MG/DL White Blood Count 7.9 TH/MM3 Red Blood Count 3.38 MIL/MM3 Hemoglobin 9.8 GM/DL Hematocrit 29.5 % Mean Corpuscular Volume 87.3 FL Mean Corpuscular Hemoglobin 29.1 PG Mean Corpuscular Hemoglobin 33.4 % Concent Red Cell Distribution Width 14.1 % Platelet Count 286 TH/MM3 Mean Platelet Volume 8.3 FL Administered Medications Medications (Trade) Dose Ordered Sig/Mack Route PRN Reason Start Time Stop Time Status Last Admin Dose Admin Oxycodone/ Acetaminophen (Percocet 5-325 Mg) 1 tab Q4H PRN PO PAIN 1-5 02/05/17 22:30 02/14/17 08:35 Magnesium Hydroxide (Milk Of Magnesia Liq) 30 ml DAILY PRN PO moderate constipation 02/08/17 22:00 02/14/17 06:34 Bisacodyl (Dulcolax Supp) 10 mg DAILY PRN RECTAL mild CONSTIPATION 02/08/17 22:00 02/14/17 08:25 Insulin Detemir (Levemir Inj) 18 units BID SQ 02/10/17 09:00 02/17/17 19:52 Acetaminophen (Tylenol) 650 mg Q4H PRN PO Temp > 100.4 02/11/17 05:45 02/15/17 15:39 Ondansetron HCl (Zofran Inj) 4 mg Q6H PRN IV NAUSEA 02/11/17 05:45 02/18/17 05:36 Oxycodone/ Acetaminophen (Percocet 10-325 Mg) 1 tab Q6H PRN PO PAIN SCALE 6 TO 10 02/11/17 14:15 02/12/17 15:14 Morphine Sulfate (Morphine Inj) 2 mg Q3H PRN IV BREAKTHROUGH PAIN 02/11/17 14:15 02/11/17 14:37 Senna/Docusate Sodium 1 tab 1 tab BID PO 02/14/17 21:00 02/16/17 08:45 Cisplatin/Sodium Chloride (Platinol Inj/NS 250 ml Inj) 330 ml @ 330 mls/hr Q7D IV 02/14/17 16:00 03/21/17 16:59 02/14/17 19:01 Mannitol 25 gm 25 gm Q7D IV 02/14/17 15:00 03/21/17 15:01 02/14/17 15:00 Dexamethasone Sodium Phosphate/ Sodium Chloride (Decadron Inj/NS Inj) 55 ml @ 220 mls/hr Q7D IV 02/14/17 15:00 03/21/17 15:14 02/14/17 17:29 Granisetron HCl (Kytril Inj) 1 mg Q7D IV 02/14/17 15:00 03/21/17 15:01 02/14/17 17:30 Lactulose (Lactulose Liq) 30 ml DAILY PRN PO severe constipation 02/15/17 15:30 02/16/17 08:47 Acetaminophen (Tylenol) 650 mg UNSCH PRN PO BLOOD TRANSFUSION 02/15/17 20:15 02/15/17 22:58 Diphenhydramine HCl (Benadryl) 25 mg UNSCH PRN PO BLOOD TRANSFUSION 02/15/17 20:15 02/15/17 22:58 Objective Remarks GENERAL: Well-nourished, well-developed patient. SKIN: Warm and dry. HEAD: Normocephalic. EYES: No scleral icterus. No injection or drainage. CARDIOVASCULAR: Regular rate and rhythm without murmurs. RESPIRATORY: Breath sounds equal bilaterally. No accessory muscle use. EXTREMITIES: TEDs MUSCULOSKELETAL: Adequate muscle tone. NEUROLOGICAL: No obvious focal deficit. Awake, alert, and oriented x3. PSYCHIATRIC: Appropriate mood and affect; insight and judgment normal. Assessment/Plan Problem List: (1) Vaginal bleeding Status: Acute Plan: continue with radiation and weekly Cisplatin due on 02/21/17 bleeding has decreased H/H stable and continue to monitor labs Dr. Shah will D/C home once Ok'd by Dr. Fink and Dr. Vaughn (2) Uterine cancer, sarcoma Status: Acute Plan: radiation with Dr. Zeng weekly cisplatin IV chemo port placed pt is ambulatory around the unit [place] D/Cd Assessment 56-year-old postmenopausal female admitted for vaginal bleeding. 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 Plan Attending Statement Dr. Vaughn is in agreement with this plan. Gene Napier Feb 18, 2017 08:39
[2017-02-18] MEDS: DOCUSATE SODIUM 50 MG/SENNA 8.6 MG TAB PO SCH ×2 (09:05→21:00)
[2017-02-18] MEDS: INSULIN DETEMIR 100 UNITS/ML VIAL SQ SCH ×2 (09:05→21:17)
[2017-02-18] MEDS ORDERED: LANCETS1 MI1 (10:06)
[2017-02-18] MEDS ORDERED: INSU1MIS (10:06)
[2017-02-18] MEDS ORDERED: BLOOD GLUCOSE M1 KIT (10:06)
[2017-02-18] MEDS ORDERED: BLOOD GLUCOSE T1 TES (10:06)
[2017-02-18] MEDS ORDERED: ALCO1PAD (10:06)
[2017-02-18] MEDS ORDERED: METF500T PO (10:08)
[2017-02-18] MEDS ORDERED: ZOFR4TAB PO (10:08)
[2017-02-18] MEDS ORDERED: PERI8.6T PO (10:08)
--- NOTE | 2017-02-18 10:10 | HHI.PR ---
Subjective Remarks Patient reports that bleeding is less overall. Looking forward to going home. We discussed continuing diabetes medications at length and the need for follow- up. Objective Vitals Vital Signs Date Time Temp Pulse Resp B/P Pulse Ox O2 Delivery O2 Flow Rate FiO2 02/18/17 04:00 98.1 86 19 132/77 99 02/18/17 00:00 97.3 81 19 111/59 98 02/17/17 20:00 98.4 95 18 124/68 99 02/17/17 16:00 97.1 80 122/64 97 02/17/17 12:00 97.1 97 18 115/58 98 I/O 02/17/17 02/17/17 02/17/17 02/18/17 02/18/17 02/18/17 07:00 15:00 23:00 07:00 15:00 23:00 Intake Total 480 ml 840 ml 480 ml 480 ml Output Total 550 ml 300 ml 850 ml 1200 ml Balance -70 ml 540 ml -370 ml -720 ml Intake Oral 480 ml 840 ml 480 ml 480 ml Output Urine Total 550 ml 300 ml 850 ml 1200 ml # Bowel Movements 1 # Sanitary Pads 1 Pads Result Diagram: 02/18/17 0541 02/18/17 0541 Objective Remarks GENERAL: Obese female in no apparent distress. CARDIOVASCULAR: Normal rate and regular rhythm without murmurs, gallops, or rubs. RESPIRATORY: Good respiratory efforts. Breath sounds equal and clear to auscultation bilaterally. GASTROINTESTINAL: Abdomen soft, non-tender, non-distended. Normal active bowel sounds MUSCULOSKELETAL: Extremities without cyanosis, or edema. NEURO: Alert & Oriented x4 to person, place, time, situation. Moves all ext x4 PSYCH: Appropriate mood and affect. 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 Dr. Guerrier, Dr. Johns, and Dr. Vaughn following. -Status post IR embolization of right uterine arteries. Unable to do hysterectomy secondary to tumor burden and risks of hemorrhage. Patient undergoing radiation. S/p port placement for chemotherapy with cisplatin. - H&H stabilizing. May need intermittent transfusions outpatient based on response to radiation and chemotherapy. Anemia secondary to blood loss: As above. May need transfusion every 1-2 weeks depending on bleeding amount. Newly diagnosed diabetes: Hemoglobin A1c of 12.3 -Continue Levemir to 18 units BID. Med SSI with accuchecks. 1500-calorie diet. - inclusion special educator consulted. I discussed weight loss at length with the patient. - Thyroid functions ok. - She will need close outpatient follow up. Metformin started on discharge Constipation/Diverticulosis: Advise high-fiber diet. Avoid constipation. Continue Crystal-Colace. Add lactulose PRN Obesity: Previously discussed weight loss and lifestyle modification at length with the patient. She seems motivated. Lipid profile OK except for low HDL. Physical activity can help raise HDL. Discharge Planning Hospitalist mary for [facility]. Script sent to Pharmacy. Dolly Young MD Feb 18, 2017 10:10
[2017-02-18 12:00] VITALS: BP 114/71; PULSE 90; RESP 18; TEMP 98.2; O2SAT 96
--- NOTE | 2017-02-18 12:24 | PD.ONC.PN ---
Subjective Subjective Remarks Afebrile overnight. Amicar was stopped over the weekend. Patient reports she still has some vaginal bleeding, but it seems to be slowing down. No pain at present. Objective Data Date Time Temp Pulse Resp B/P Pulse Ox O2 Delivery O2 Flow Rate FiO2 02/18/17 08:00 98.3 86 20 130/76 97 02/18/17 04:00 98.1 86 19 132/77 99 02/18/17 00:00 97.3 81 19 111/59 98 02/17/17 20:00 98.4 95 18 124/68 99 02/17/17 16:00 97.1 80 122/64 97 02/18/17 02/18/17 02/18/17 07:00 15:00 23:00 Intake Total 480 ml 360 ml Output Total 1200 ml Balance -720 ml 360 ml Result Diagram: 02/18/17 0541 02/18/17 0541 Laboratory Results Laboratory Tests Test 02/18/17 05:41 White Blood Count 7.9 TH/MM3 Red Blood Count 3.38 MIL/MM3 Hemoglobin 9.8 GM/DL Hematocrit 29.5 % Mean Corpuscular Volume 87.3 FL Mean Corpuscular Hemoglobin 29.1 PG Mean Corpuscular Hemoglobin 33.4 % Concent Red Cell Distribution Width 14.1 % Platelet Count 286 TH/MM3 Mean Platelet Volume 8.3 FL Sodium Level 142 MEQ/L Potassium Level 3.7 MEQ/L Chloride Level 105 MEQ/L Carbon Dioxide Level 28.9 MEQ/L Anion Gap 8 MEQ/L Blood Urea Nitrogen 12 MG/DL Creatinine 0.53 MG/DL Estimat Glomerular Filtration 118 ML/MIN Rate Random Glucose 99 MG/DL Calcium Level 8.5 MG/DL Administered Medications Medications (Trade) Dose Ordered Sig/Amck Route PRN Reason Start Time Stop Time Status Last Admin Dose Admin Oxycodone/ Acetaminophen (Percocet 5-325 Mg) 1 tab Q4H PRN PO PAIN 1-5 02/05/17 22:30 02/14/17 08:35 Magnesium Hydroxide (Milk Of Magnesia Liq) 30 ml DAILY PRN PO moderate constipation 02/08/17 22:00 02/14/17 06:34 Bisacodyl (Dulcolax Supp) 10 mg DAILY PRN RECTAL mild CONSTIPATION 02/08/17 22:00 02/14/17 08:25 Insulin Detemir (Levemir Inj) 18 units BID SQ 02/10/17 09:00 02/18/17 09:05 Acetaminophen (Tylenol) 650 mg Q4H PRN PO Temp > 100.4 02/11/17 05:45 02/15/17 15:39 Ondansetron HCl (Zofran Inj) 4 mg Q6H PRN IV NAUSEA 02/11/17 05:45 02/18/17 05:36 Oxycodone/ Acetaminophen (Percocet 10-325 Mg) 1 tab Q6H PRN PO PAIN SCALE 6 TO 10 02/11/17 14:15 02/12/17 15:14 Morphine Sulfate (Morphine Inj) 2 mg Q3H PRN IV BREAKTHROUGH PAIN 02/11/17 14:15 02/11/17 14:37 Senna/Docusate Sodium 1 tab 1 tab BID PO 02/14/17 21:00 02/18/17 09:05 Cisplatin/Sodium Chloride (Platinol Inj/NS 250 ml Inj) 330 ml @ 330 mls/hr Q7D IV 02/14/17 16:00 03/21/17 16:59 02/14/17 19:01 Mannitol 25 gm 25 gm Q7D IV 02/14/17 15:00 03/21/17 15:01 02/14/17 15:00 Dexamethasone Sodium Phosphate/ Sodium Chloride (Decadron Inj/NS Inj) 55 ml @ 220 mls/hr Q7D IV 02/14/17 15:00 03/21/17 15:14 02/14/17 17:29 Granisetron HCl (Kytril Inj) 1 mg Q7D IV 02/14/17 15:00 03/21/17 15:01 02/14/17 17:30 Lactulose (Lactulose Liq) 30 ml DAILY PRN PO severe constipation 02/15/17 15:30 02/16/17 08:47 Acetaminophen (Tylenol) 650 mg UNSCH PRN PO BLOOD TRANSFUSION 02/15/17 20:15 02/15/17 22:58 Diphenhydramine HCl (Benadryl) 25 mg UNSCH PRN PO BLOOD TRANSFUSION 02/15/17 20:15 02/15/17 22:58 Objective Remarks GENERAL:Pleasant middle aged female, sitting up in chair next to bed in nad. SKIN: Warm and dry. HEAD: Normocephalic. EYES: No injection or drainage. NECK: Supple, trachea midline. CARDIOVASCULAR: Regular rate and rhythm RESPIRATORY: Breath sounds equal bilaterally. No accessory muscle use. GASTROINTESTINAL: Abdomen soft, mildly distended, mildly tender EXTREMITIES: No cyanosis MUSCULOSKELETAL: Adequate muscle tone. NEUROLOGICAL: No obvious focal deficit. Awake, alert, and oriented x3. 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 Hematology consulted for vaginal bleeding. Plan 1. Amicar d/c'd over the weekend. Her hemoglobin remains stable, bleeding seems to be slowing (per patient's subjective). Monitor H/H for now. Can resume Amicar if needed for increased bleeding. Attending Statement The exam, history, and the medical decision-making described in the above note were completed with the assistance of the mid-level provider. I reviewed and agree with the findings presented. I attest that I had a [id number] encounter with the patient on the same day, and personally performed and documented my assessment and findings in the medical record. Pt doing well, sitting OOB, noted maybe some increase bleed after stopping Amicar, unable to fully confirm benefit from drug, benefit from Amicar marginal. Tolerated treatment well without complication. Hgb stable. Pt ambulating well to prevent DVT despite stopping Amicar. Cont tx per Dr. Guerrier and Dr. Vaughn. Will sign off. Reconsult as needed. Yuliya Salinas Feb 18, 2017 12:24 Pricila Johns MD Feb 18, 2017 19:14
[2017-02-18 16:00] VITALS: BP 113/68; PULSE 94; RESP 20; TEMP 98.1; O2SAT 96
[2017-02-18 20:00] VITALS: BP 134/82; PULSE 105; RESP 18; TEMP 99.2; O2SAT 97
--- NOTE | 2017-02-18 22:17 | HHI.PR ---
Subjective Remarks Hospital day 11 Seen early am and she was up in chair with breakfast and in excellent spirits. Bleeding has slowed down considerably. voiding comfortably proud her sugars are greatly improved. no pain. Objective Vital Signs Vital Signs Date Time Temp Pulse Resp B/P Pulse Ox O2 Delivery O2 Flow Rate FiO2 02/18/17 16:00 98.1 94 20 113/68 96 02/18/17 12:00 98.2 90 18 114/71 96 02/18/17 08:00 98.3 86 20 130/76 97 02/18/17 04:00 98.1 86 19 132/77 99 02/18/17 00:00 97.3 81 19 111/59 98 I/O 02/17/17 02/17/17 02/17/17 02/18/17 02/18/17 02/18/17 07:00 15:00 23:00 07:00 15:00 23:00 Intake Total 480 ml 840 ml 480 ml 480 ml 960 ml Output Total 550 ml 300 ml 850 ml 1200 ml Balance -70 ml 540 ml -370 ml -720 ml 960 ml Intake Oral 480 ml 840 ml 480 ml 480 ml 960 ml Output Urine Total 550 ml 300 ml 850 ml 1200 ml # Voids 2 1 # Bowel Movements 1 1 2 # Sanitary Pads 1 Pads 1 Pads Result Diagram: 02/18/17 0541 02/18/17 0541 A/P Assessment and Plan radiation appears to have controlled bleeding Amicar no longer needed at this time If can coordinate radiation with chemotherapy and labs tomorrow can discharge to continue therapy on an outpatient basis. Nona Guerrier MD Feb 18, 2017 22:17
[2017-02-19] VITALS: BP 119/78; PULSE 88; RESP 17; TEMP 98.3; O2SAT 97
[2017-02-19] MEDS: ONDANSETRON HCL 4 MG/2 ML VIAL IV PRN (00:26)
[2017-02-19 04:00] VITALS: BP 104/53; PULSE 80; RESP 18; TEMP 98.1; O2SAT 98
[2017-02-19] MEDS: INSULIN ASPART SUPPLEMENTAL SCALE SQ SCH ×3 (07:00→16:00)
[2017-02-19 08:00] VITALS: BP 125/73; PULSE 116; RESP 16; TEMP 98; O2SAT 98
--- NOTE | 2017-02-19 09:14 | HHI.PR ---
Subjective Remarks Patient reports that she is feeling great. Reports vaginal bleeding is [employer]. She is anxious to go home. Objective Vitals Vital Signs Date Time Temp Pulse Resp B/P Pulse Ox O2 Delivery O2 Flow Rate FiO2 02/19/17 04:00 98.1 80 18 104/53 98 02/19/17 00:00 98.3 88 17 119/78 97 02/18/17 20:00 99.2 105 18 134/82 97 02/18/17 16:00 98.1 94 20 113/68 96 02/18/17 12:00 98.2 90 18 114/71 96 I/O 02/18/17 02/18/17 02/18/17 02/19/17 02/19/17 02/19/17 07:00 15:00 23:00 07:00 15:00 23:00 Intake Total 480 ml 960 ml 480 ml Output Total 1200 ml Balance -720 ml 960 ml 480 ml Intake Oral 480 ml 960 ml 480 ml Output Urine Total 1200 ml # Voids 2 2 3 # Bowel Movements 1 2 # Sanitary Pads 1 Pads 1 Pads Result Diagram: 02/18/17 0541 02/18/17 0541 Objective Remarks GENERAL: Obese female in no apparent distress. CARDIOVASCULAR: Normal rate and regular rhythm without murmurs, gallops, or rubs. RESPIRATORY: Good respiratory efforts. Breath sounds equal and clear to auscultation bilaterally. GASTROINTESTINAL: Abdomen soft, non-tender, non-distended. Normal active bowel sounds MUSCULOSKELETAL: Extremities without cyanosis, or edema. NEURO: Alert & Oriented x4 to person, place, time, situation. Moves all ext x4 PSYCH: Appropriate mood and affect. 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 Dr. Guerrier, Dr. Johns, and Dr. Vaughn following. -Status post IR embolization of right uterine arteries. Unable to do hysterectomy secondary to tumor burden and risks of hemorrhage. Patient undergoing radiation. S/p port placement for chemotherapy with cisplatin. S/P Amicar - H&H sophia. May need intermittent transfusions outpatient based on response to radiation and chemotherapy. Anemia secondary to blood loss: As above. May need transfusion every couple of weeks depending on bleeding amount. Newly diagnosed diabetes: Hemoglobin A1c of 12.3 -Continue Levemir to 18 units BID. Med SSI with accuchecks. 1500-calorie diet. - tobacco prevention health educator consulted. I discussed weight loss at length with the patient. - Thyroid functions ok. - She will need close outpatient follow up. Metformin started on discharge Constipation/Diverticulosis: Advise high-fiber diet. Avoid constipation. Continue Crystal-Colace. Add lactulose PRN Obesity: Previously discussed weight loss and lifestyle modification at length with the patient. She seems motivated. Lipid profile OK except for low HDL. Physical activity can help raise HDL. Discharge Planning Hospitalist clear for DC. Script sent to Pharmacy. Dolly Young MD Feb 19, 2017 09:14
[2017-02-19] MEDS: DOCUSATE SODIUM 50 MG/SENNA 8.6 MG TAB PO SCH (09:53)
[2017-02-19] MEDS: INSULIN DETEMIR 100 UNITS/ML VIAL SQ SCH (09:54)
--- NOTE | 2017-02-19 10:59 | HHI.PR ---
SPECIMEN COLLECTOR Note Note Patricia doing well still has steady moderate bleeding but not the amount prior to emoblization and radiation would like discharge and follow up for chemo, radiation and labs on outpatient basis will need PCP to address diabetes. Case management to organize Nona Guerrier MD Feb 19, 2017 10:59
[2017-02-19] MEDS ORDERED: LANTINJ SQ (11:11)
[2017-02-19 11:57] LABS: AUTOMATED NEUTROPHIL # 5.5 TH/MM3 (1.8-7.7); BASOPHIL % 0.3 % (0.0-2.0); EOSINOPHIL # 0.2 TH/MM3 (0-0.4); EOSINOPHIL % 2.7 % (0.0-4.0); HEMATOCRIT 26.8 % (35.0-46.0); LYMPH % 8.3 % (9.0-44.0); LYMPHOCYTE # 0.5 TH/MM3 (1.0-4.8); MEAN CELL VOLUME 87.8 FL (80.0-100.0); MEAN CORPUSCULAR HEMOGLOBIN 28.9 PG (27.0-34.0); MONO % 5.3 % (0.0-8.0); NEUT % 83.4 % (16.0-70.0); PLATELET COUNT 260 TH/MM3 (150-450); RED BLOOD COUNT 3.05 MIL/MM3 (4.00-5.30); RED CELL DISTRIBUTION WIDTH 13.6 % (11.6-17.2); WHITE BLOOD COUNT 6.6 TH/MM3 (4.0-11.0)
[2017-02-19 12:00] VITALS: BP 116/70; PULSE 94; RESP 20; TEMP 98.7; O2SAT 98
[2017-02-19 12:01] LABS: HEMO FLAGS AUTO DIFF
[2017-02-19 12:15] LABS: BICARBONATE 28.4 MEQ/L (21.0-32.0); POTASSIUM 3.6 MEQ/L (3.5-5.1)
[2017-02-19 12:39] LABS: BANDS 2 % (0-6); EOSINOPHILS 5 % (0-4); METAMYELOCYTES 1 % (0-1); NEUTROPHIL # MANUAL DIFF 5.2 TH/MM3 (1.8-7.7); POLYS (SEG NEUTROPHILS) 76 % (16-70); WBC DIFF SAMPLE 100
[2017-02-19 12:40] LABS: PLATELET ESTIMATE SMEAR NORMAL (NORMAL); PLATELET MORPHOLOGY NORMAL (NORMAL); SCAN/DIFF FINAL DIFF MANUAL
--- NOTE | 2017-02-19 13:45 | HHI.DCPOC ---
Discharge Care Plan Report Symptoms to Your Doctor -Temperate above 100.5 degrees -Redness, of incision or excessive or foul smelling drainage -Unusual pain or calf pain -Increased vaginal bleeding -Painful or difficulty urinating -Feelings of extreme sadness or anxiety after 2 weeks Goals to Promote Your Health * To prevent worsening of your condition and complications * To maintain your health at the optimal level Directions to Meet Your Goals Take your medications as prescribed Follow your dietary instruction Follow activity as directed Ensure plenty of rest for recovery Drink fluids for hydration Keep your appointments as scheduled Take your immunizations and boosters as scheduled If your symptoms worsen call your PCP, if no PCP go to Urgent Care Center or Emergency Room Smoking is Dangerous to Your Health. Avoid second hand smoke Call the 24-hour crisis hotline for domestic abuse at Nona Guerrier MD Feb 19, 2017 13:45
[2017-02-19 16:00] VITALS: BP 110/68; PULSE 88; RESP 18; TEMP 97; O2SAT 88
[2017-02-21] MEDS ORDERED: [UNRECOGNIZED DRUG - OTHER] IV SCH ×2 (15:00→17:00)
[2017-02-21] MEDS ORDERED: POTASSIUM CHLORIDE IV SCH ×2 (15:00→17:00)
[2017-02-21] MEDS ORDERED: MAGNESIUM SULFATE IV SCH ×2 (15:00→17:00)
--- NOTE | 2017-03-05 08:23 | MD ---
cc: NONA LONG ADMISSION DATE: 02/05/2017 DISCHARGE DATE: 02/19/2017 DATE OF : 1960 ADMITTING DIAGNOSIS 1. Profuse vaginal bleeding with presumed advanced cancer of undetermined etiology. 2. Uncontrolled newly-diagnosed of diabetes. BRIEF HISTORY The patient is a greta 56-year-old single white female, 0, who had been menopausal for approximately eight years and overall in her normal state of health until October. At that time she began to have some mild vaginal bleeding which she did not view as too worrisome. It began to get heavier and was accompanied by back pain until the week of admission when the back pain and bleeding became acute and frightened her enough that she contacted her sister, a physician in [place]. Her sister in turn called me and brought her to the office. The patient was diagnosed with vaginal hemorrhage and was brought immediately to the hospital. 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 Upon admission, stabilization and medical evaluation it was found that she was a non-diagnosed diabetic with sugars in the high 300s. The hospitalist was consulted and over the next several days her blood sugars stabilized. Attempt was made at further evaluating the etiology, origin and pathology of this tumor to determine an ideal course of treatment. Consultants involved in the case at this point were Dr. Jonathan Villalta who eventually performed an uterine artery embolization to help reduce bleeding, Dr. Mela Vaughn, gynecologic oncologist, who initially did an examination under anesthesia to try and determine the origin and extent of tumor, our hospitalists to help us with diabetic control and Dr. Delvin Junior of radiation oncology. Initially her sugars were stabilized. It was very difficult to get her bleeding under control. We started after uterine artery embolization and aggressive radiation that was continued even over the weekend, and eventually her bleeding slowed down enough that it was felt she was safe for outpatient therapy. She was transfused several times throughout her hospitalization. Her other remaining labs were stabilized. She remained very upbeat, compliant and very appropriate throughout her hospitalization and determination for treatment. It was determined that this was not a surgical excisable tumor at the time of examination under anesthesia, but with radiation we are anticipating that it will shrink. She is getting cisplatin weekly to sensitize the tumor, aggressive radiation with Dr. Delvin Junior, follow-up on her diabetes with a local physician in [place], and follow-up in my office on a regular basis so that we can keep an eye on her entire healthcare needs. PHYSICAL EXAMINATION GENERAL: On physical exam she is a well-developed, well-nourished, overweight white female in distress. VITAL SIGNS: Afebrile. Slightly tachycardic but blood pressure with normotensive at 130/70. NECK: No thyroid enlargement. LUNGS: Clear. HEART: Regular. ABDOMEN: Soft. Normal blood sounds. No hepatosplenomegaly. No CVA tenderness. The tumor was not palpable from above. PELVIC: Grossly bleeding. Tumor in the vaginal vault that was necrotic and literally falling out of the vault. This was sent for pathology. I could not discern cervix separate from tumor. On rectovaginal exam this extended to the left side. I could not do a rectal exam that would have been helpful for occult. There were no obvious masses in the rectum per se. EXTREMITIES: Unremarkable. Negative Homans sign. No edema. No sign of other pathology. Impression at the initial evaluation was hemorrhage due to a probable cancer of undetermined etiology. The course of the hospitalization is as described above. DISCHARGE DIAGNOSIS 3. 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 4. Diabetes, under improving control. 5. Elevated body mass index. PLAN The plan at this point was to continue aggressive therapy on an outpatient basis with radiation oncology through Dr. Delvin Junior, follow-up with gynecologic oncology with Dr. Mela Vaughn, follow-up on her diabetic control with a local physician in [place], and follow-up with routine gynecology and other issues with me in my office. Nona Long MD PPC/BT /10:30 AM /8:21 AM
[2017-03-11] MEDS ORDERED: METF500T PO (19:41)
[2017-03-11] MEDS ORDERED: [UNRECOGNIZED DRUG - OTHER] PO (19:41)
[2017-03-21] MEDS ORDERED: NOVOLOGP2 SQ (05:53)
[2017-03-21] MEDS ORDERED: SLOW142T PO (05:53)
== END 2017-02-19 17:03 | disposition home or self-care (01) | DRG 744 ==
LOC: NEPE 15:34 → NEDA 17:50 → HOCA 21:32
PROVIDERS: ADMIT Obstetrics & Gynecology; ATTEND Obstetrics & Gynecology
PROC: 0UBC7ZX Excision of Cervix, Via Natural or Artificial Opening, Diagnostic (ICD-10-PCS; principal; 2017-02-06)
PROC: 0W3R7ZZ Control Bleeding in Genitourinary Tract, Via Natural or Artificial Opening (ICD-10-PCS; 2017-02-11)
PROC: B41C1ZZ Fluoroscopy of Pelvic Arteries using Low Osmolar Contrast (ICD-10-PCS; 2017-02-11)
PROC: 02HV33Z Insertion of Infusion Device into Superior Vena Cava, Percutaneous Approach (ICD-10-PCS; 2017-02-12)
PROC: 0JH60XZ Insertion of Tunneled Vascular Access Device into Chest Subcutaneous Tissue and Fascia, Open Approach (ICD-10-PCS; 2017-02-12)
PROC: 30233N1 Transfusion of Nonautologous Red Blood Cells into Peripheral Vein, Percutaneous Approach (ICD-10-PCS; 2017-02-12)
PROC: DU0 Radiation Therapy, Female Reproductive System, Beam Radiation (ICD-10-PCS; 2017-02-12)
PROC: 04LE3DT Occlusion of Right Uterine Artery with Intraluminal Device, Percutaneous Approach (ICD-10-PCS; 2017-02-13)
PROC: 04LF3DZ Occlusion of Left Internal Iliac Artery with Intraluminal Device, Percutaneous Approach (ICD-10-PCS; 2017-02-13)
PROC: 3E03305 Introduction of Other Antineoplastic into Peripheral Vein, Percutaneous Approach (ICD-10-PCS; 2017-02-14)
DX: C53.8 Malignant neoplasm of overlapping sites of cervix uteri (principal); D62 Acute posthemorrhagic anemia; E11.65 Type 2 diabetes mellitus with hyperglycemia; Z68.43 Body mass index [BMI] 50.0-59.9, adult; N13.30 Unspecified hydronephrosis; N95.0 Postmenopausal bleeding; R33.9 Retention of urine, unspecified; K59.00 Constipation, unspecified; E66.01 Morbid (severe) obesity due to excess calories; K57.30 Diverticulosis of large intestine without perforation or abscess without bleeding; Z71.3 Dietary counseling and surveillance; Z88.0 Allergy status to penicillin
CPT/HCPCS: 36245; 36246; 36247; 36248; 36430; 36561; 37243; 37244; 71260; 72197; 74177; 75736; 75774; 75898; 76937; 77001; 77014; 77263; 77290; 77300; 77301; 77334; 77336; 77338; 77386; 77387; 77427; 80048; 80053; 80061; 81001; 82728; 82948; 83036; 83735; 84443; 85007; 85025; 85027; 85044; 85610; 85730; 86304; 86850; 86900; 86901; 86920; 87086; 88305; 88331; 93005; 94150; 99152; 99153; 99222; 99284; A9579; C1760; C1769; C1788; C1887; C1894; G0269; J0131; J0690; J1100; J1626; J1642; J1815; J1940; J1956; J2150; J2250; J2270; J2405; J2710; J3010; J3370; J3475; J3480; J7040; J7050; J9060; P9016; Q9967

== ENCOUNTER 2017-02-22 16:24 | Emergency (ER) | payer OTHER ==
[~2017-02-22] VITALS: Ht 162.6 cm; Wt 130.0 kg
[~2017-02-22 16:24] MED LIST: ALCO1PAD; BLOOD GLUCOSE M1 KIT; BLOOD GLUCOSE T1 TES; INSU1MIS; LANCETS1 MI1; LANTINJ SQ; METF500T PO; PERI8.6T PO; ZOFR4TAB PO
[2017-02-22 16:27] VITALS: BP 120/74; PULSE 112; RESP 20; TEMP 97.7; O2SAT 98
--- NOTE | 2017-02-22 20:03 | PD ---
HPI Chief Complaint: Abnormal Results Time Seen by Provider: 20:03 Travel History International Travel<30 days: No Contact w/Intl Traveler<30days: No Traveled to known affect area: No History of Present Illness HPI 56-year-old female with history of diabetes, recently diagnosed with cervical cancer presents to emergency department for evaluation of possible low hemoglobin. Patient is undergoing chemotherapy and radiation. Yesterday her hemoglobin was 7.1 and she received 2 units of packed red blood cells. Today she received chemotherapy and radiation. Following that she met with her primary care provider. She states they did a finger stick hemoglobin and was told that it was "low" and she needed to come to the emergency department for further evaluation of this. Patient states she has been feeling very well. She does continue to have vaginal bleeding which has been consistent throughout the duration of her diagnosis. Denies any pain. She has not been short of breath. Denies any lightheaded sensation. She has no other symptoms to report at this time. PFSH Past Medical History Cancer: No Cardiovascular Problems: No Diabetes: Yes Endocrine: No Genitourinary: No Immune Disorder: No Musculoskeletal: No Neurologic: No Psychiatric: No Reproductive: No Respiratory: No Family History Family Hypercholesterolemia: Yes (fam hx htn) Social History Alcohol Use: No Tobacco Use: No Substance Use: No Allergies-Medications (Allergen,Severity, Reaction): Coded Allergies: Penicillin (Verified Allergy, Severe, 02/22/17) Reported Meds & Prescriptions Reported Meds & Active Scripts Active Lantus Solostar Pen Inj (Insulin Glargine) 300 Unit/3 Ml Pen 35 Units SQ DAILY Crystal-Colace (Sennosides-Docusate Sodium) 8.6-50 Mg Tab 1 Tab PO BID Zofran (Ondansetron HCl) 4 Mg Tab 4 Mg PO Q6HR PRN Metformin (Metformin HCl) 500 Mg Tab 500 Mg PO BIDPC With meals Alcohol Prep Pads (Alcohol Swabs) 70 % Pad 1 Pad .ROUTE DIRECTED Insulin Syringe/U-100/1Ml 28G X 1/2" 1 ml (Insulin Syringe/Needle U-100) 1 Mis Mis 1 Ea .ROUTE DIRECTED Lancets 1 Mis Mis 1 Ea .ROUTE DIRECTED Blood Glucose Test Strips 1 Mary Mary 1 Ea .ROUTE DIRECTED Blood Glucose Monitoring W/Device (Device) 1 Kit Kit 1 Kit .ROUTE DIRECTED Review of Systems Except as stated in HPI: all other systems reviewed are Neg Physical Exam Narrative GENERAL: Well-nourished female patient, in no acute distress SKIN: Focused skin assessment warm/dry. HEAD: Atraumatic. Normocephalic. EYES: Pupils equal and round. No scleral icterus. No injection or drainage. ENT: No nasal bleeding or discharge. Mucous membranes pink and moist. NECK: Trachea midline. No JVD. CARDIOVASCULAR: Elevated rate and rhythm. No murmur appreciated. RESPIRATORY: No accessory muscle use. Clear to auscultation. Breath sounds equal bilaterally. GASTROINTESTINAL: Abdomen soft, non-tender, nondistended. Hepatic and splenic margins not palpable. MUSCULOSKELETAL: No obvious deformities. No clubbing. No cyanosis. No edema. NEUROLOGICAL: Awake and alert. No obvious cranial nerve deficits. Motor grossly within normal limits. Normal speech. PSYCHIATRIC: Appropriate mood and affect; insight and judgment normal. Data Data Last Documented VS Vital Signs Date Time Temp Pulse Resp B/P Pulse Ox O2 Delivery O2 Flow Rate FiO2 02/22/17 20:47 95 16 107/57 97 Room Air 02/22/17 16:27 97.7 Orders Hgb & Hct (02/22/17 20:13) Labs Laboratory Tests Test 02/22/17 20:15 Hemoglobin 8.9 GM/DL Hematocrit 25.7 % MDM Medical Decision Making Medical Screen Exam Complete: Yes Emergency Medical Condition: Yes Medical Record Reviewed: Yes Differential Diagnosis Anemia versus symptomatic anemia versus vaginal bleeding versus normal examination Narrative Course 56-year-old female presents to emergency department for evaluation. Patient appears without distress. Her vital signs are stable. Her heart rate is slightly elevated. Patient is completely asymptomatic at this time. I discussed the patient with my attending physician. H&H is ordered. Hemoglobin is 8.9. I discussed this with my attending physician who has also assessed the patient. The patient wants to go home. She is asymptomatic and able. She is counseled on signs and symptoms of worsening hemoglobin. Since she still has vaginal bleeding she likely will experience a drop in her hemoglobin. She does have garbled recheck of this Saturday but agrees to return immediately with any acute worsening of symptoms. Diagnosis Primary Impression: Anemia Qualified Code: D64.9 - Anemia, unspecified type Additional Impressions: Vaginal bleeding Uterine cancer, sarcoma Referrals: Mela Vaughn MD Primary Care Physician Patient Instructions: Anemia (ED), General Instructions Additional Instructions: Follow-up with your primary care provider Keep your appointment on Saturday for a myoglobin recheck Return immediately with any acute worsening of symptoms Med/Other Pt SpecificInfo: No Change to Meds Disposition: 01 DISCHARGE HOME Condition: Stable Tracie Pichardo Feb 22, 2017 20:03
[2017-02-22 20:35] LABS: HEMATOCRIT 25.7 % (35.0-46.0); REVIEW FLAG FINAL
[2017-02-22 20:47] VITALS: BP 107/57; PULSE 16; PULSE 95; RESP 16; O2SAT 97
--- NOTE | 2017-02-22 21:00 | PD ---
Physical Exam Narrative I, Dr. Wu, have reviewed the advance practice practitioner's documentation and am in agreement, met with the patient face to face, made the diagnosis, and the medical decision making was done by me. *My assessment and Findings: Vaginal bleeding 56yo F with cervical/ovarian CA here to recheck her hemoglobin. Pt had 2 units of blood on 02/21/17 and is still having vaginal bleeding so want to make sure her hemoglobin is fine. Pt is asymptomatic and denies any chest pain, sob, n/v , abdominal pain, focal weakness or numbness. H/H today is 8.9/25.7. Pt has good follow up and wants to go home. Return precautions given. Data Data Last Documented VS Vital Signs Date Time Temp Pulse Resp B/P Pulse Ox O2 Delivery O2 Flow Rate FiO2 02/22/17 20:47 95 16 107/57 97 Room Air 02/22/17 16:27 97.7 Orders Hgb & Hct (02/22/17 20:13) Labs Laboratory Tests Test 02/22/17 20:15 Hemoglobin 8.9 GM/DL Hematocrit 25.7 % MDM Supervised Visit with STALIN: Yes Diagnosis Primary Impression: Anemia Qualified Code: D64.9 - Anemia, unspecified type Additional Impressions: Uterine cancer, sarcoma Vaginal bleeding Referrals: Mela Vaughn MD Primary Care Physician Patient Instructions: General Instructions, Anemia (ED) Additional Instruction: Follow-up with your primary care provider Keep your appointment on Saturday for a myoglobin recheck Return immediately with any acute worsening of symptoms Disposition: 01 DISCHARGE HOME Condition: Stable Natali Wu DO Feb 22, 2017 21:00
[2017-03-11] MEDS ORDERED: METF500T PO (19:41)
[2017-03-11] MEDS ORDERED: [UNRECOGNIZED DRUG - OTHER] PO (19:41)
[2017-03-21] MEDS ORDERED: NOVOLOGP2 SQ (05:53)
[2017-03-21] MEDS ORDERED: SLOW142T PO (05:53)
== END 2017-02-22 21:59 | disposition home or self-care (01) ==
LOC: NEPE 16:24
DX: C55 Malignant neoplasm of uterus, part unspecified (principal); D64.9 Anemia, unspecified; N93.9 Abnormal uterine and vaginal bleeding, unspecified
CPT/HCPCS: 85014; 85018; 99283